=== PATIENT | male | born 1955 | race Caucasian/White ===

== ENCOUNTER 2023-06-22 07:26 | Outpatient (OUT) | payer MEDICARE, SELFPAY ==
[2023-06-22 07:45] LABS: Basophils Absolute Auto 0.1 10^3/uL (0.0-0.1); Basophils Percent Auto 1.5 % (0.2-2.0); Eosinophils Absolute Auto 0.4 10^3/uL (0.0-0.7); Eosinophils Percent Auto 5.2 % (0.9-7.0); Hematocrit 46.1 % (42.0-54.0); Immature Granulocytes Abs Auto 0.05 10^3/uL (0.00-0.03); Immature Granulocytes Pct Auto 0.6 % (0.0-0.5); Lymphocytes Percent Auto 25.5 % (20.5-60.0); Mean Corpuscular HGB Conc 34.7 g/dL (29.9-35.2); Mean Corpuscular Hemoglobin 30.5 pg (25.9-34.0); Mean Platelet Volume 9.6 fL (9.5-13.5); Monocytes Absolute Auto 0.7 10^3/uL (0.3-0.8); Monocytes Percent Auto 9.2 % (1.7-12.0); Neutrophils Absolute Auto 4.5 10^3/uL (1.4-6.5); Platelet Count 212 10^3/uL (150-450); Red Blood Count 5.24 10^6/uL (4.70-6.10); Red Cell Distribution Width 13.4 % (11.0-15.0); White Blood Count 7.8 10^3/uL (4.0-11.0)
[2023-06-22 08:14] LABS: Alanine Aminotransferase 30 U/L (16-63); Anion Gap 14.4; BUN Creatinine Ratio 25.3; Calcium 8.8 mg/dL (8.5-10.1); Carbon Dioxide 27.4 mmol/L (21.0-32.0); Chloride 101 mmol/L (98-107); Chol HDL Ratio 4.8; Cholesterol 191 mg/dL (<=200); Estimated GFR (African America >60 (>=60); Estimated GFR (Non-African Ame >60 (>=60); Glucose 203 mg/dL (74-106); HDL Cholesterol 40 mg/dL (40-60); Potassium 3.8 mmol/L (3.5-5.1); Sodium 139 mmol/L (136-145); Triglycerides 192 mg/dL (<=150); VLDL CHOLESTEROL 38.4 mg/dL
[2023-06-22 08:45] LABS: Microalbumin Urine Random 14.4 mg/dL (<=30.0)
[2023-06-22 09:31] LABS: Prostate Specific Antigen Scrn 2.99 ng/mL (<=4.00)
[2023-06-22 09:39] LABS: Estimated Average Glucose 183 mg/dL
== END 2023-06-22 07:27 | disposition home or self-care (01) ==
PROVIDERS: PCP Internal Medicine; Visit Provider Internal Medicine
DX: E11.65 Type 2 diabetes mellitus with hyperglycemia (principal); E78.00 Pure hypercholesterolemia, unspecified; I10 Essential (primary) hypertension; Z12.5 Encounter for screening for malignant neoplasm of prostate; Z79.899 Other long term (current) drug therapy
CPT/HCPCS: 36415; 80048; 80061; 81001; 82043; 83036; 84460; 85025; G0103

== ENCOUNTER 2023-08-21 11:23 | Outpatient (OUT) | payer MEDICARE, SELFPAY ==
--- NOTE | 2023-08-21 11:28 | CT_ITS ---
The [address] [address] Patient Name: CALE KRAUSE MRN: [id number] date: 1955 Sex: M Assigned Patient Location: CT Current Patient Location: CT Accession/Order Number: [id number] Exam Date: 08/21/2023 11:35 Report Date: 08/21/2023 12:14 At the request of: NAKIA HAYNES Procedure: CT head/brain wo con EXAM: CT head/brain wo con HISTORY: Cervicogenic Headache G44.86, Concussion S06.0X0A COMPARISON: CT head 08/03/2022. TECHNIQUE: Axial noncontrast CT imaging of the head was performed with coronal and sagittal reformats. This CT exam was performed using one or more of the following dose reduction techniques: Automated exposure control, adjustment of the MA and/or kV according to patient size, or use of iterative reconstruction technique. FINDINGS: Calvarium/skull base: No evidence of acute fracture or destructive lesion. Mastoids and middle ears demonstrate no substantial mucosal disease. Paranasal sinuses: No air fluid levels. Brain: There is a mildly hyperdense hemorrhage involving the right basal ganglia with mild surrounding edema and local mass effect partially effacing the anterior right lateral ventricle. The area of hyperdense hemorrhage measures approximately 1.6 x 1.2 x 2.8 cm. No mass lesion or mass effect. No hydrocephalus. CT/CT head/brain wo con IMPRESSION: Mildly hyperdense hemorrhage centered within the right basal ganglia with mild surrounding edema and local mass effect with partial effacement of the anterior right lateral ventricle. Given the appearance and attenuation this is favored to relate to a resolving hemorrhage. Notification of Results Provider/Agent notified: Dr. Haynes Time/Date notified: 08/21/2023 10:04 AM MDT Notifying Staff: Dr. Zhong Electronically authenticated by: AHSAN ZHONG Date: 08/21/2023 12:14
[2023-08-21 11:55] LABS: Basophils Absolute Auto 0.1 10^3/uL (0.0-0.1); Eosinophils Absolute Auto 0.2 10^3/uL (0.0-0.7); Eosinophils Percent Auto 2.4 % (0.9-7.0); Hematocrit 44.7 % (42.0-54.0); Hemoglobin 15.5 g/dL (14.0-18.0); Immature Granulocytes Abs Auto 0.05 10^3/uL (0.00-0.03); Immature Granulocytes Pct Auto 0.6 % (0.0-0.5); Lymphocytes Absolute Auto 1.9 10^3/uL (1.2-3.8); Lymphocytes Percent Auto 23.9 % (20.5-60.0); Mean Corpuscular HGB Conc 34.7 g/dL (29.9-35.2); Mean Corpuscular Hemoglobin 30.6 pg (25.9-34.0); Mean Corpuscular Volume 88.2 fL (80.0-94.0); Mean Platelet Volume 9.7 fL (9.5-13.5); Monocytes Absolute Auto 0.7 10^3/uL (0.3-0.8); Monocytes Percent Auto 8.9 % (1.7-12.0); Neutrophils Percent Auto 63.2 % (43.0-75.0); Platelet Count 225 10^3/uL (150-450); Red Blood Count 5.07 10^6/uL (4.70-6.10); Red Cell Distribution Width 13.4 % (11.0-15.0); White Blood Count 7.9 10^3/uL (4.0-11.0)
[2023-08-21 11:56] LABS: Bilirubin Urine NEGATIVE (NEGATIVE); Blood Urine NEGATIVE (NEGATIVE); Clarity Urine CLEAR (CLEAR); Color Urine LT. YELLOW (YELLOW); Glucose Urine UA NEGATIVE (NEGATIVE); Ketones Urine NEGATIVE (NEGATIVE); Leukocyte Esterase Urine NEGATIVE (NEGATIVE); Nitrite Urine NEGATIVE (NEGATIVE); Protein Urine NEGATIVE (NEG/TRACE); Urobilinogen Urine 0.2 EU/dL (0.2-1.0); pH Urine 5.5 (5.0-9.0)
[2023-08-21 12:03] LABS: RBC Urine NONE SEEN #/HPF (0-2); WBC Urine NONE SEEN #/HPF (NONE SEEN)
[2023-08-21 12:04] LABS: Amorphous Sediment Urine RARE; Bacteria Urine NONE SEEN #/HPF (NONE SEEN); Crystals Seen? None Seen #/HPF (None Seen); Mucus Urine NONE SEEN (NONE SEEN); Squamous Epithelial Cell Urine NONE SEEN #/LPF (NONE/RARE)
[2023-08-21 12:05] LABS: Cast Seen? NONE SEEN #/LPF (NONE SEEN)
[2023-08-21 12:22] LABS: Estimated Average Glucose 180 mg/dL; Glycohemoglobin A1C 7.9 % (4.5-6.2)
[2023-08-21 12:39] LABS: Alanine Aminotransferase 21 U/L (16-63); Albumin Globulin Ratio 1.1; Albumin Level 3.8 g/dL (3.4-5.0); Alkaline Phosphatase 50 U/L (46-116); Anion Gap 10.1; Aspartate Amino Transferase 14 U/L (15-37); BUN Creatinine Ratio 19.4; Bilirubin Total 0.6 mg/dL (0.2-1.0); Calcium 9.7 mg/dL (8.5-10.1); Carbon Dioxide 32.4 mmol/L (21.0-32.0); Chloride 96 mmol/L (98-107); Estimated GFR (African America >60 (>=60); Estimated GFR (Non-African Ame >60 (>=60); Globulin 3.6 g/dL; Glucose 187 mg/dL (74-106); Potassium 3.5 mmol/L (3.5-5.1); Sodium 135 mmol/L (136-145); Total Protein 7.4 g/dL (6.4-8.2)
== END 2023-08-21 11:24 | disposition home or self-care (01) ==
LOC: CT 11:23
PROVIDERS: PCP Internal Medicine; Visit Provider Internal Medicine
DX: G44.86 Cervicogenic headache (principal); G47.10 Hypersomnia, unspecified; S06.0X0A Concussion without loss of consciousness, initial encounter; E11.65 Type 2 diabetes mellitus with hyperglycemia; I10 Essential (primary) hypertension; R35.89 Other polyuria; I61.8 Other nontraumatic intracerebral hemorrhage
CPT/HCPCS: 36415; 70450; 80053; 81001; 83036; 85025; 87086

== ENCOUNTER 2023-08-21 12:17 | Emergency (ER) | payer MEDICARE, OTHER, SELFPAY ==
[2023-08-21] VITALS (96 sets, daily range): BP systolic 97–178; BP diastolic 46–107; PULSE 48–79; RESP 12–24; TEMP 36.8; O2SAT 90–98
--- NOTE | 2023-08-21 12:24 | ECG_ITS ---
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
--- NOTE | 2023-08-21 12:33 | PC.NURSE ---
PT REFEREED TO ER BY PCP FOR ABNORMAL BRAIN CT OUTPATIENT. POSSIBLE BRAIN BLEED
--- NOTE | 2023-08-21 12:51 | ED_ITS ---
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 He denied straining intensely while doing that. He has chronic neck pain but denies that it got any worse when the headache developed. No associated/prior head injury. No prior history of headache like this. He had no neurological deficit - no weakness, sensory changes, numbness or tingling. This occurred about 5 days ago. He saw his PCP, Dr Haynes, and was sent to [facility] for out-patient non contrast head CT. It was obtained around 1135am and report generated around 1214pm. Dr Haynes was notified and the patient was sent to the ED. On arrival he complains only of the headache which is in the center of my head . No nausea, vomiting, photophobia, phonophobia, tinnitus or visual changes. He takes aspirin daily - he said he had abnormal speech, had a negative head CT and saw Neurology for follow up - they put him on aspirin. No Plavix PMHx also includes NIDDM, HTN, chronic neck pain due to DDD/OA and GERD Related Data Home Medications Medication Instructions Recorded Confirmed amlodipine 5 mg tablet 5 mg PO DAILY 08/21/23 08/21/23 aspirin 81 mg capsule 81 mg PO DAILY 08/21/23 08/21/23 carvedilol 12.5 mg tablet 12.5 mg PO Q12H 08/21/23 08/21/23 cetirizine 10 mg capsule (All Day 10 mg PO DAILY 08/21/23 08/21/23 Allergy (cetirizine)) famotidine 20 mg tablet 20 mg PO Q12H 08/21/23 08/21/23 glimepiride 2 mg tablet 4 mg PO DAILY 08/21/23 08/21/23 glucosamine-chondroitin 250 mg-200 1 tab PO DAILY 08/21/23 08/21/23 mg tablet (Osteo Bi-Flex) lisinopril 20 2 tab PO DAILY 08/21/23 08/21/23 mg-hydrochlorothiazide 12.5 mg tablet Allergies Allergy/AdvReac Type Severity Reaction Status Date / Time Penicillins Allergy Unknown Verified 08/21/23 12:22 [facility] Social History Smoking status: Never smoker Exam Narrative Exam Narrative: Nurses notes and vital signs reviewed and patient is not hypoxic. afebrile General: Well-appearing and in no apparent distress. Skin: Warm, dry, no pallor noted. Head: Normocephalic, atraumatic. Neck: Supple, diffusely tender posteriorly. Eye: Pupils are equal, round and EOMI. No scleral scleral icterus or nystagmus Cardiovascular: Regular Rate and Rhythm without murmur, gallop or rub. Respiratory: No accessory muscle use or respiratory distress. Lungs are clear to auscultation, no wheezing, rales or rhonchi Back: No midline thoracic or lumbar vertebral tenderness. No CVA tenderness Musculoskeletal: normal ROM Neurological: A&O x4. No cranial nerve dysfunction observed. No truncal ataxia. Moves all extremities with expected strength and coordination. Sensation intact. NIH=0 Psychiatric: Cooperative and interactive. Normal mood and affect. Constitutional Vital Signs, click to edit/add: Last Vital Signs Temp 98.3 F 08/21/23 12:22 Pulse 66 08/21/23 18:35 Resp 16 08/21/23 18:35 BP 109/73 08/21/23 18:35 Pulse Ox 94 L 08/21/23 17:50 O2 Del Method Room Air 08/21/23 12:22 Course Vital Signs Vital signs: Vital Signs Temperature 98.3 F 08/21/23 12:22 Pulse Rate 51 L 08/21/23 12:22 Respiratory Rate 17 08/21/23 12:22 Blood Pressure 168/107 H 08/21/23 12:22 Pulse Oximetry 97 08/21/23 12:22 Oxygen Delivery Method Room Air 08/21/23 12:22 Temperature 98.3 F 08/21/23 12:22 Pulse Rate 66 08/21/23 18:35 Respiratory Rate 16 08/21/23 18:35 Blood Pressure 109/73 08/21/23 18:35 Pulse Oximetry 94 L 08/21/23 17:50 Oxygen Delivery Method Room Air 08/21/23 12:22 Medical Decision Making MDM Narrative Medical decision making narrative: Patient was placed on vocational nurse and EKG obtained. Blood drawn and sent for evaluation. I met with the patient and and after examining him and discussing potential locations for further evaluation and decided to have me call [facility]. I spoke with the on-call physician for the stroke team, Dr Camacho, per their non-trauma protocol for ICH. He asked that I lower the patient's BP and ensure that the images were transmitted so he could review them. The patient was given Vasotec for HTN - he was then started on Nicardipine drip for better BP control and to keep his systolic less than 140. I spoke with Dr Camacho again after the images were reviewed and he accepted the patient for transfer to [facility] under the care of Dr Huang. He asked me to get CTA head and neck on the patient. [facility] let us know what they were discharge-dependent on beds and it would be a few hours until they could get him transferred to their facility. The patient and spouse were informed of the plan. Patient's blood pressure remained controlled during his ED stay and there were no other issues for the remainder of my shift. Patient will be signed out to the external relations director physician at 7pm with the understanding that if there are no beds available by 10pm at [facility], the patient will be placed upstairs in the ICU and remain on the nicardipine drip to keep his BP controlled until [facility] provides a bed and he can be transferred. Lab Data Lab results reviewed: Yes I reviewed the patient's lab results Labs: Lab Results 08/21/23 08/21/23 Range/Units 12:45 13:34 WBC 7.7 (4.0-11.0) 10^3/uL RBC 5.00 (4.70-6.10) 10^6/uL Hgb 15.5 (14.0-18.0) g/dL Hct 44.3 (42.0-54.0) % MCV 88.6 (80.0-94.0) fL MCH 31.0 (25.9-34.0) pg MCHC 35.0 (29.9-35.2) g/dL RDW 13.6 (11.0-15.0) % Plt Count 230 (150-450) 10^3/uL MPV 10.7 (9.5-13.5) fL Neut % (Auto) 61.0 (43.0-75.0) % Lymph % (Auto) 25.1 (20.5-60.0) % Lucas % (Auto) 10.2 (1.7-12.0) % Eos % (Auto) 2.2 (0.9-7.0) % Baso % (Auto) 1.0 (0.2-2.0) % Neut # (Auto) 4.7 (1.4-6.5) 10^3/uL Lymph # (Auto) 1.9 (1.2-3.8) 10^3/uL Lucas # (Auto) 0.8 (0.3-0.8) 10^3/uL Eos # (Auto) 0.2 (0.0-0.7) 10^3/uL Baso # (Auto) 0.1 (0.0-0.1) 10^3/uL Abs Immat Gran (auto) 0.04 H (0.00-0.03) 10^3/uL Imm/Tot Granulo (auto) 0.5 (0.0-0.5) % PT 10.3 (9.0-11.6) sec INR 0.97 APTT 25.9 (22.3-36.2) sec Sodium 135 L (136-145) mmol/L Potassium 3.2 L (3.5-5.1) mmol/L Chloride 97 L (98-107) mmol/L Carbon Dioxide 28.1 (21.0-32.0) mmol/L Anion Gap 13.1 BUN 21.0 H (7.0-18.0) mg/dL Creatinine 0.80 (0.70-1.30) mg/dL Est GFR ( Amer) >60 (>=60) Est GFR (Non-Af Amer) >60 (>=60) BUN/Creatinine Ratio 26.3 Glucose 172 H (74-106) mg/dL Calcium 9.5 (8.5-10.1) mg/dL Total Bilirubin 0.8 (0.2-1.0) mg/dL AST 12 L (15-37) U/L ALT 21 (16-63) U/L Alkaline Phosphatase 47 (46-116) U/L Total Protein 7.7 (6.4-8.2) g/dL Albumin 3.7 (3.4-5.0) g/dL Globulin 4.0 g/dL Albumin/Globulin Ratio 0.[address] scan - head: Radiologist's impression: Patient Name: CALE KRAUSE MRN: [id number] date: 1955 Sex: M Assigned Patient Location: CT Current Patient Location: CT Accession/Order Number: [id number] Exam Date: 08/21/2023 11:35 Report Date: 08/21/2023 12:14 At the request of: NAKIA HAYNES Procedure: CT head/brain wo con EXAM: CT head/brain wo con HISTORY: Cervicogenic Headache G44.86, Concussion S06.0X0A COMPARISON: CT head 08/03/2022. TECHNIQUE: Axial noncontrast CT imaging of the head was performed with coronal and sagittal reformats. This CT exam was performed using one or more of the following dose reduction techniques: Automated exposure control, adjustment of the MA and/or kV according to patient size, or use of iterative reconstruction technique. FINDINGS: Calvarium/skull base: No evidence of acute fracture or destructive lesion. Mastoids and middle ears demonstrate no substantial mucosal disease. Paranasal sinuses: No air fluid levels. Brain: There is a mildly hyperdense hemorrhage involving the right basal ganglia with mild surrounding edema and local mass effect partially effacing the anterior right lateral ventricle. The area of hyperdense hemorrhage measures approximately 1.6 x 1.2 x 2.8 cm. No mass lesion or mass effect. No hydrocephalus. IMPRESSION: Mildly hyperdense hemorrhage centered within the right basal ganglia with mild surrounding edema and local mass effect with partial effacement of the anterior right lateral ventricle. Given the appearance and attenuation this is favored to relate to a resolving hemorrhage. Notification of Results Provider/Agent notified: Dr. Haynes Time/Date notified: 08/21/2023 10:04 AM MDT Notifying Staff: Dr. Zhong Electronically authenticated by: AHSAN ZHONG Date: 08/21/2023 12:14 ct angio head: Radiologist's impression: Patient Name: CALE KRAUSE MRN: [id number] date: 1955 Sex: M Assigned Patient Location: ER Current Patient Location: ER Accession/Order Number: [id number] Exam Date: 08/21/2023 14:38 Report Date: 08/21/2023 15:25 At the request of: MARY BAE Procedure: CT angio head EXAM: CT angio head, CT angio neck HISTORY: ICH COMPARISON: CT head performed earlier the same day. CTA head and neck 08/03/2022 TECHNIQUE: Axial postcontrast CTA imaging of the head and neck was performed with coronal and sagittal reformats. Maximum intensity projection reformats were performed. NASCET criteria was utilized. This CT exam was performed using one or more of the following dose reduction techniques: Automated exposure control, adjustment of the MA and/or kV according to patient size, or use of iterative reconstruction technique. FINDINGS: Aortic arch: Imaged portion shows no evidence of aneurysm. No significant stenosis of the major origins of the major arch vessels. Right carotid system: No evidence of significant (50% or greater) stenosis or occlusion. Left carotid system: No evidence of significant (50% or greater) stenosis or occlusion. Vertebral arteries: Extremely hypoplastic left vertebral artery. No evidence of significant (50% or greater) stenosis or occlusion. Anterior circulation: No evidence of aneurysm, significant stenosis, or occlusion. Vertebrobasilar system: No evidence of aneurysm, significant stenosis, or occlusion. Venous sinuses: Grossly patent. Additional findings: No evidence for active intracranial hemorrhage//involving the previously described right basal ganglia hemorrhage. Stable paranasal sinus disease. IMPRESSION: 1. No significant stenosis, large vessel occlusion or aneurysm involving the neck or intracranial arterial vasculature. 2. No evidence for active extravasation/contrast blush within the previously described right basal ganglia evolving hemorrhage. No new areas of hemorrhage are seen given postcontrast imaging. 3. Extremely hypoplastic left vertebral artery. Electronically authenticated by: AHSAN ZHONG Date: 08/21/2023 15:25 ct angio neck: Radiologist's impression: Patient Name: CALE KRAUSE MRN: [id number] date: 1955 Sex: M Assigned Patient Location: ER Current Patient Location: ER Accession/Order Number: [id number] Exam Date: 08/21/2023 14:38 Report Date: 08/21/2023 15:25 At the request of: MARY BAE Procedure: CT angio neck EXAM: CT angio head, CT angio neck HISTORY: ICH COMPARISON: CT head performed earlier the same day. CTA head and neck 08/03/2022 TECHNIQUE: Axial postcontrast CTA imaging of the head and neck was performed with coronal and sagittal reformats. Maximum intensity projection reformats were performed. NASCET criteria was utilized. This CT exam was performed using one or more of the following dose reduction techniques: Automated exposure control, adjustment of the MA and/or kV according to patient size, or use of iterative reconstruction technique. FINDINGS: Aortic arch: Imaged portion shows no evidence of aneurysm. No significant stenosis of the major origins of the major arch vessels. Right carotid system: No evidence of significant (50% or greater) stenosis or occlusion. Left carotid system: No evidence of significant (50% or greater) stenosis or occlusion. Vertebral arteries: Extremely hypoplastic left vertebral artery. No evidence of significant (50% or greater) stenosis or occlusion. Anterior circulation: No evidence of aneurysm, significant stenosis, or occlusion. Vertebrobasilar system: No evidence of aneurysm, significant stenosis, or occlusion. Venous sinuses: Grossly patent. Additional findings: No evidence for active intracranial hemorrhage//involving the previously described right basal ganglia hemorrhage. Stable paranasal sinus disease. IMPRESSION: 1. No significant stenosis, large vessel occlusion or aneurysm involving the neck or intracranial arterial vasculature. 2. No evidence for active extravasation/contrast blush within the previously described right basal ganglia evolving hemorrhage. No new areas of hemorrhage are seen given postcontrast imaging. 3. Extremely hypoplastic left vertebral artery. Electronically authenticated by: AHSAN ZHONG Date: 08/21/2023 15:25 ECG Data Interpretation: EKG interpretation: Emergency Department physician interpretation. sinus bradycardia rhythm at 50bpm. nonspecific T-wave changes. Normal axis, normal intervals and no ST segment elevation or depression. Discharge Plan Discharge Chief Complaint: Headache Clinical Impression: ICH (intracerebral hemorrhage) Patient Disposition: [facility] Time of Disposition Decision: 13:20
[2023-08-21] MEDS: ENALAPRILAT DIHYDRATE 1.25 MG/ML VIAL IV (13:18)
[2023-08-21 13:26] LABS: Basophils Absolute Auto 0.1 10^3/uL (0.0-0.1); Eosinophils Absolute Auto 0.2 10^3/uL (0.0-0.7); Eosinophils Percent Auto 2.2 % (0.9-7.0); Hematocrit 44.3 % (42.0-54.0); Hemoglobin 15.5 g/dL (14.0-18.0); Immature Granulocytes Abs Auto 0.04 10^3/uL (0.00-0.03); Immature Granulocytes Pct Auto 0.5 % (0.0-0.5); Lymphocytes Absolute Auto 1.9 10^3/uL (1.2-3.8); Lymphocytes Percent Auto 25.1 % (20.5-60.0); Mean Corpuscular Volume 88.6 fL (80.0-94.0); Mean Platelet Volume 10.7 fL (9.5-13.5); Monocytes Absolute Auto 0.8 10^3/uL (0.3-0.8); Monocytes Percent Auto 10.2 % (1.7-12.0); Neutrophils Absolute Auto 4.7 10^3/uL (1.4-6.5); Platelet Count 230 10^3/uL (150-450); Red Cell Distribution Width 13.6 % (11.0-15.0); White Blood Count 7.7 10^3/uL (4.0-11.0)
[2023-08-21 13:38] LABS: Albumin Globulin Ratio 0.9; Albumin Level 3.7 g/dL (3.4-5.0); Alkaline Phosphatase 47 U/L (46-116); Anion Gap 13.1; Bilirubin Total 0.8 mg/dL (0.2-1.0); Calcium 9.5 mg/dL (8.5-10.1); Carbon Dioxide 28.1 mmol/L (21.0-32.0); Chloride 97 mmol/L (98-107); Estimated GFR (African America >60 (>=60); Estimated GFR (Non-African Ame >60 (>=60); Glucose 172 mg/dL (74-106); Total Protein 7.7 g/dL (6.4-8.2)
[2023-08-21 13:55] LABS: Alanine Aminotransferase 21 U/L (16-63); Aspartate Amino Transferase 12 U/L (15-37); Potassium 3.2 mmol/L (3.5-5.1); Sodium 135 mmol/L (136-145)
[2023-08-21 13:57] LABS: BUN Creatinine Ratio 26.3
--- NOTE | 2023-08-21 14:15 | CT_ITS ---
The [address] [address] Patient Name: CALE KRAUSE MRN: [id number] date: 1955 Sex: M Assigned Patient Location: ER Current Patient Location: ER Accession/Order Number: [id number] Exam Date: 08/21/2023 14:38 Report Date: 08/21/2023 15:25 At the request of: MARY BAE Procedure: CT angio neck EXAM: CT angio head, CT angio neck HISTORY: ICH COMPARISON: CT head performed earlier the same day. CTA head and neck 08/03/2022 TECHNIQUE: Axial postcontrast CTA imaging of the head and neck was performed with coronal and sagittal reformats. Maximum intensity projection reformats were performed. NASCET criteria was utilized. This CT exam was performed using one or more of the following dose reduction techniques: Automated exposure control, adjustment of the MA and/or kV according to patient size, or use of iterative reconstruction technique. FINDINGS: Aortic arch: Imaged portion shows no evidence of aneurysm. No significant stenosis of the major origins of the major arch vessels. Right carotid system: No evidence of significant (50% or greater) stenosis or occlusion. Left carotid system: No evidence of significant (50% or greater) stenosis or occlusion. Vertebral arteries: Extremely hypoplastic left vertebral artery. No evidence of significant (50% or greater) stenosis or occlusion. Anterior circulation: No evidence of aneurysm, significant stenosis, or occlusion. Vertebrobasilar system: No evidence of aneurysm, significant stenosis, or occlusion. Venous sinuses: Grossly patent. Additional findings: No evidence for active intracranial hemorrhage//involving the previously described right basal ganglia hemorrhage. Stable paranasal sinus disease. CT/CT angio neck IMPRESSION: 1. No significant stenosis, large vessel occlusion or aneurysm involving the neck or intracranial arterial vasculature. 2. No evidence for active extravasation/contrast blush within the previously described right basal ganglia evolving hemorrhage. No new areas of hemorrhage are seen given postcontrast imaging. 3. Extremely hypoplastic left vertebral artery. Electronically authenticated by: AHSAN ZHONG Date: 08/21/2023 15:25
--- NOTE | 2023-08-21 14:15 | CT_ITS ---
The [address] [address] Patient Name: CALE KRAUSE MRN: [id number] date: 1955 Sex: M Assigned Patient Location: ER Current Patient Location: ER Accession/Order Number: [id number] Exam Date: 08/21/2023 14:38 Report Date: 08/21/2023 15:25 At the request of: MARY BAE Procedure: CT angio head EXAM: CT angio head, CT angio neck HISTORY: ICH COMPARISON: CT head performed earlier the same day. CTA head and neck 08/03/2022 TECHNIQUE: Axial postcontrast CTA imaging of the head and neck was performed with coronal and sagittal reformats. Maximum intensity projection reformats were performed. NASCET criteria was utilized. This CT exam was performed using one or more of the following dose reduction techniques: Automated exposure control, adjustment of the MA and/or kV according to patient size, or use of iterative reconstruction technique. FINDINGS: Aortic arch: Imaged portion shows no evidence of aneurysm. No significant stenosis of the major origins of the major arch vessels. Right carotid system: No evidence of significant (50% or greater) stenosis or occlusion. Left carotid system: No evidence of significant (50% or greater) stenosis or occlusion. Vertebral arteries: Extremely hypoplastic left vertebral artery. No evidence of significant (50% or greater) stenosis or occlusion. Anterior circulation: No evidence of aneurysm, significant stenosis, or occlusion. Vertebrobasilar system: No evidence of aneurysm, significant stenosis, or occlusion. Venous sinuses: Grossly patent. Additional findings: No evidence for active intracranial hemorrhage//involving the previously described right basal ganglia hemorrhage. Stable paranasal sinus disease. CT/CT angio head IMPRESSION: 1. No significant stenosis, large vessel occlusion or aneurysm involving the neck or intracranial arterial vasculature. 2. No evidence for active extravasation/contrast blush within the previously described right basal ganglia evolving hemorrhage. No new areas of hemorrhage are seen given postcontrast imaging. 3. Extremely hypoplastic left vertebral artery. Electronically authenticated by: AHSAN ZHONG Date: 08/21/2023 15:25
[2023-08-21] MEDS: NICARDIPINE IN NACL, ISO-OSM 40 MG/200 ML PIGGYBACK 25 MG IV (14:19)
[2023-08-21 14:52] LABS: INR 0.97; Partial Thromboplastin Time 25.9 sec (22.3-36.2); Prothrombin Time 10.3 sec (9.0-11.6)
[2023-08-21] MEDS: ONDANSETRON PF 4 MG/2 ML VIAL IV (14:59)
[2023-08-21] MEDS: HYDROMORPHONE HCL 0.5 MG/0.5 ML SYRINGE IV (14:59)
--- NOTE | 2023-08-21 15:47 | PC.NURSE ---
PT RESTING IN BED COMFORTABLY, STATES HEADACHE IS A 2/10 ON PAIN SCALE. DENIES ANY NEEDS CURRENTLY. STILL AWAITING CALL BACK FROM [facility]
--- NOTE | 2023-08-21 16:48 | PC.NURSE ---
DR BAE IN ROOM EXPLAINING PLAN TO PATIENT, AGAIN. STILL AWAITING ON BED FROM [facility].
--- NOTE | 2023-08-21 18:00 | PC.NURSE ---
PT EATING MEAL TRAY AT THIS TIME
== END 2023-08-21 21:51 | disposition short-term general hospital (02) ==
PROVIDERS: Emergency Medicine; Emergency Provider Internal Medicine; PCP Internal Medicine
DX: I61.9 Nontraumatic intracerebral hemorrhage, unspecified (principal); E11.9 Type 2 diabetes mellitus without complications; K21.9 Gastro-esophageal reflux disease without esophagitis; M47.812 Spondylosis without myelopathy or radiculopathy, cervical region; M50.30 Other cervical disc degeneration, unspecified cervical region; Z79.82 Long term (current) use of aspirin; Z79.899 Other long term (current) drug therapy; G44.86 Cervicogenic headache; G47.10 Hypersomnia, unspecified; S06.0X0A Concussion without loss of consciousness, initial encounter; E11.65 Type 2 diabetes mellitus with hyperglycemia; I10 Essential (primary) hypertension; R35.89 Other polyuria
CPT/HCPCS: 36415; 70450; 70496; 70498; 80053; 81001; 83036; 85025; 85610; 85730; 87086; 93005; 96374; 96375; 99285; J1170; Q9967

== ENCOUNTER 2023-10-05 07:28 | Outpatient (OUT) | payer MEDICARE, SELFPAY ==
--- NOTE | 2023-10-05 12:45 | MR_ITS ---
The [address] [address] Patient Name: CALE KRAUSE MRN: [id number] date: 1955 Sex: M Assigned Patient Location: MRI Current Patient Location: MRI Accession/Order Number: [id number] Exam Date: 10/05/2023 13:25 Report Date: 10/05/2023 17:31 At the request of: RENO COYNE Procedure: MR head/brain wo con MRI BRAIN WITHOUT CONTRAST, 10/05/2023. HISTORY: Intracranial hemorrhage. Follow-up. COMPARISON: MRI brain, 08/03/2022. CT head and CTA brain, 08/21/2023. TECHNIQUE: Multiplanar, multisequence MRI imaging of the brain without contrast. FINDINGS: Large amount of mucosal thickening throughout the paranasal sinuses. Mastoid air cells are clear. Middle ear cavities clear. Nasopharynx normal. 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 Orbital contents unremarkable. There is hemosiderin staining along the head of the caudate nucleus on the right from prior hemorrhage. No underlying mass. Brain atrophy. No hydrocephalus. Mild chronic microvascular ischemic changes in the cerebral white matter. No diffusion restriction. No evidence of acute ischemic infarction. There are no masses. MR/MR head/brain wo con IMPRESSION: 1. There is some hemosiderin staining and volume loss in the area of prior hemorrhage along the head of the caudate nucleus on the right. The previously seen hematoma has resolved. No underlying mass. 2. Brain atrophy and chronic microvascular ischemic changes stable. No new acute infarction. No new hemorrhage. No mass identified. Electronically authenticated by: LIVE NOLASCO Date: 10/05/2023 17:31
[2023-10-05 13:19] LABS: Estimated GFR (African America >60 (>=60); Estimated GFR (Non-African Ame >60 (>=60)
== END 2023-10-05 07:29 | disposition home or self-care (01) ==
LOC: MRI 07:28
PROVIDERS: PCP Internal Medicine; Visit Provider Nurse Practitioner Family
DX: I61.0 Nontraumatic intracerebral hemorrhage in hemisphere, subcortical (principal)
CPT/HCPCS: 36415; 70551; 82565

== ENCOUNTER 2024-04-04 08:19 | Outpatient (OUT) | payer MEDICARE, SELFPAY ==
--- OUTSIDE RECORDS SUMMARY | 2024-04-04 08:29 | XMS_ITS | CCD ---
Author Organization [facility] Inform ion [facility] Care Team Providers Care Cook Helper Fruit Name Role Phone Robert Culver DO Unavailable [phone] Robert Culver DO Primary Care Provider DO Robert Culvre Primary Care Provider MD Sonido Calvert Attending Provider [phone] Sonido Calvert Unavailable Robert Culver Unavailable Unavailable Unavailable Reynaldo, Dr. Kiko Ho Referring Unava ilable Reynaldo, Dr. Kiko Ho Attending Unava ilable Robert Culver [place] [facility] UnavailRobert Gerardo Unavailable PALOMO, DR YEE Admitting Unavailable BALL, DR YEE Primary Care Unavailable BALL, DR YEE Attending Unavailable BALL, DR YEE Consulting Unavailable YEH, ROSALIE Consulting Unavailable BALL, DR YEE Admitting Unavailable BALL, DR YEE Attending Unavailable BALL, DR YEE Consulting Unavailable BALL, DR YEE Primary Care Unavailable BALL, DR YEE Admitting Unavailable BALL, DR YEE Attending Unavailable BALL, DR YEE Consulting Unavailable BALL, DR YEE Primary Care Unavailable NADERER, DR RICARDO Perez Admitting Unavailable BALL, DR YEE Primary Care Unavailable RENE, DR JOSE LUIS Pino Consulting Unavailable NADERESissy, DR RICARDO Perez Attending Unavailable NADERER, DR RICARDO Perez Consulting Unavailable GLATZ, LIVE [place] Consulting Unavailable DION ., KRYSTYNA Consulting Unavailable GILMORE, LESLIE Consulting Unavailable BALL, DR YEE Primary Care Unavailable REQUEST, DR RAHMAN LISTED Admitting Unavaila ble BALL, DR YEE Consulting Unavailable REQUEST, DR RAHMAN LISTED Attending Unavaila ble BALL, DR YEE Admitting Unavailable BALL, DR YEE Attending Unavailable BALL, DR YEE Consulting Unavailable BALL, DR YEE Primary Care Unavailable RENE, DR JOSE LUIS Pino Consulting Unavailable Ben Murillo II Unavailable DO Robert Culver Primary Care Provider MD Ben Murillo II Attending Provider DO Robert Culver Primary Care Provider MD Ben Murillo II Attending Provider Ben Murillo II Attending Robert Lara Primary Care Unavailable Ben Murillo II Admitting UnavailBen Perez II Attending Robert Lara Primary Care Unavailable Ben Murillo II Admitting Unavailabl e Allergies Allergy Classification Reported Allergen(s) Allergy Type Date of Onset Reaction(s) Facility (1 source) Penicillin V Drug Allergy Unknown [facility] Other (1 source) Penicillins; Translations: [Penicillins] Allergy to drug (finding) [facility] DO Work Phone: (17 sources) Penicillin; Translations: [penicillin] Drug Allergy Unknown [facility] Repository (1 source) Penicillins Drug allergy (disorder) 03-03-2024 [facility] Repository Medications Current Medications Medication Drug Class(es) Dates Sig (Normalized) Sig (Original) amLODIPine 5 mg oral tablet (20 sources) Dihydropyridine Calcium Channel Sarah Start: 09-20-2022 take 5 mg by mouth once daily in the morning Amlodipine Active 5 MG PO Every morning September 20, 2022 1:00am aspirin 81 mg delayed release oral tablet (20 sources) Platelet Aggregation Inhibitor, Nonsteroidal Anti-inflammatory Drug Start: 09-20-2022 take 81 mg by mouth once daily in the morning Aspirin Active 81 MG PO Every morning September 20, 2022 1:00am Start: 09-20-2022 End: 10-02-2022 take 325 mg by mouth once daily in the morning Aspirin Discontinued 325 MG PO Every morning September 20, 2022 1:00am October 02, 2022 10:25am Aspirin 81 Activ e Blood-Glucose Meter,Continuous (Freestyle Jessica 3 [place]anda) misc (1 source) Start: 02-20-2024 Blood-Glucose Meter,Continuous (Freestyle Jessica 3 [place]) misc Active 0 .Route February 20, 2024 12:00am Use to test home BS qid Blood-Glucose Sensor (Freestyle Jessica 3 Sensor) device (1 source) Start: 02-20-2024 Blood-Glucose Sensor (Freestyle Jessica 3 Sensor) device Active 0 .Route February 20, 2024 12:00am Use to test home BS qid carvedilol 25 mg oral tablet (20 sources) alpha-Adrener gic Sarah, beta-Adrenerg ic Sarah Start: 12-19-2023 End: 02-13-2024 take 25 mg by mouth twice daily Carvedilol Active 25 MG PO Twice daily 180 90 February 13, 2024 5:08pm Start: 09-20-2022 End: 12-19-2023 take 12.5 mg by mouth twice daily Carvedilol Discontinued 12.5 MG PO Twice daily September 20, 2022 1:00am December 19, 2023 2:39pm take 1 tablet by shanon th every twelve hours Carvedilol 25 MG 1 tablet with food Orally Twice a day for 90 days Active cinnamon bark 500 mg oral capsule (7 sources) Start: 12-19-2023 take 500 mg by mouth once daily Cinnamon Bark Active 500 MG PO Daily December 19, 2023 1:00am cinnamon preparation 500 mg oral tablet (10 sources) Non-Standardized Food Allergenic Extract diclofenac sodium 0.01 mg/mg topical gel (11 sources) Nonsteroidal Anti-inflammatory Drug Start: 12-19-2023 Diclofenac Sodium (Voltaren Arthritis Pain) 1 % gel Active 2 GM TOPICAL Four times daily December 19, 2023 1:00am Start: 07-11-2023 Voltaren 1 % A pply 1-2 grams to the affected area Externally 4-5 times a day for 30 days Jun, Active Famotidine (20 sources) Histamine-2 Receptor Antagonist Start: 02-13-2024 take 1 tablet by mouth twice daily Famotidine Active 0 .ROUTE .COMPLEX 180 February 13, 2024 5:09pm TAKE 1 TABLET BY MOUTH TWICE DAILY Start: 09-20-2022 End: 02-13-2024 take 20 mg by mouth twice daily Famotidine Discontinued 20 MG PO Twice daily September 20, 2022 1:00am February 13, 2024 5:09pm glimepiride (20 sources) Sulfonylurea Start: 02-13-2024 take 1 tablet by mouth twice daily at breakfast Glimepiride Active 0 .ROUTE .COMPLEX 180 February 13, 2024 7:37am TAKE 1 TABLET BY MOUTH TWICE DAILY (TAKE first dose WITH BREAKFAST or first main meal OF the day) Start: 01-24-2024 End: 02-13-2024 take 4 mg by mouth once daily in the morning Glimepiride Discontinued 4 MG PO Every morning January 24, 2024 8:44am February 13, 2024 7:37am Start: 12-21-2023 End: 01-24-2024 take 8 mg by mouth once daily in the morning Glimepiride Discontinued 8 MG PO Every morning December 21, 2023 3:21pm January 24, 2024 8:45am Start: 12-19-2023 End: 12-21-2023 take 4 mg by mouth twice daily Glimepiride Discontinue d 4 MG PO Twice daily December 19, 2023 1:00am December 21, 2023 3:23pm Start: 09-20-2022 End: 12-19-2023 take 2 mg by mouth once daily in the morning Glimepiride Discontinued 2 MG PO Every morning September 20, 2022 1:00am December 19, 2023 2:39pm take 1 tablet by shanon th every twelve hours Glimepiride 4 MG 1 tablet with breakfast or the first main meal of the day Orally Twice a day for 90 days Active take 2 tablets by mo [facility] every twenty-four hours Glimepiride 4 MG 2 tablets Oral Once a day Active take 1 tablet by shanon th once daily Glimepiride 1 MG Oral Tablet Take 1 tablet daily Quantity: 90 Refills: 1 Ordered: 26-Sep-2022 DO Active glucosamine sulfate 500 mg oral tablet (17 sources) Start: 12-19-2023 take 1 tablet by mouth once daily Glucosamine Sulfate (Glucosamine) 500 mg tablet Active 500 MG PO Daily December 19, 2023 1:00am administer with a meal hydroCHLOROthiazide 12.5 mg / lisinopril 20 mg oral tablet (20 sources) Thiazide Diuretic, Angiotensin Converting Enzyme Inhibitor Start: 09-20-2022 End: 12-19-2023 take 2 tablets by mouth once daily Lisinopril-Hydrochlorothiazide Active 2 TAB PO Daily December 19, 2023 2:40pm take 2 tablets by mo uth once daily Lisinopril-hydroCHLOROthiazide 20-12.5 M G Take 2 tablets by mouth daily Active Multivitamin preparation (17 sources) Start: 12-19-2023 take 1 tablet by mouth once daily Multivitamin Active 1 TAB PO Daily December 19, 2023 1:00am pioglitazone 30 mg oral tablet (9 sources) Peroxisome Proliferator Receptor alpha Agonist, Peroxisome Proliferator Receptor gamma Agonist, Thiazolidinedione Start: 02-22-2024 End: 03-03-2024 take 30 mg by mouth once daily Pioglitazone Active 30 MG PO Daily 90 90 March 03, 2024 3:36pm Start: 12-21-2023 End: 01-24-2024 take 30 mg by mouth once daily at bedtime Pioglitazone Discontinued 30 MG PO Daily at bedtime December 21, 2023 3:22pm January 24, 2024 8:42am Start: 12-19-2023 End: 12-21-2023 take 15 mg by mouth once daily Pioglitazone Discontinu ed 15 MG PO Daily December 19, 2023 1:00am December 21, 2023 3:23pm Start: 12-07-2023 take 1 tablet by shanon th every twenty-four hours Pioglitazone HCl 30 MG 1 tablet Orally Once a day for 30 days Nov, Active Start: 10-08-2023 take 1 tablet by shanon th every twenty-four hours Pioglitazone HCl 15 MG 1 tablet Orally Once a day for 30 days Sep, Active Semaglutide (4 sources) Start: 01-24-2024 Semaglutide (O zempic) 0.25 mg or 0.5 mg (2 mg/3 mL) pen injector Active 0.5 MG SUBCUT every week 3.68 January 24, 2024 8:44am for 4 weeks Start: 12-21-2023 End: 01-24-2024 Semaglutide (Ozempic) 0.25 m g or 0.5 mg (2 mg/3 mL) pen injector Discontinued 0.25 MG SUBCUT every week 3 December 21, 2023 3:55pm January 24, 2024 8:45am for 4 weeks Start: 12-21-2023 End: 12-21-2023 Semaglutide (Ozempic) 0.25 m g or 0.5 mg (2 mg/3 mL) pen injector Discontinued 0.25 MG SUBCUT every week 3 December 21, 2023 3:53pm December 21, 2023 3:55pm for 4 weeks Start: 12-21-2023 End: 12-21-2023 Semaglutide (Ozempic) 0.25 m g or 0.5 mg (2 mg/3 mL) pen injector Discontinued 0.25 MG SUBCUT every week 1.84 December 21, 2023 1:00am December 21, 2023 3:54pm for 4 weeks Completed/Discontinued Medications Medication Drug Class(es) Dates Sig (Normalized) Sig (Original) atorvastatin 40 mg oral tablet (13 sources) HMG-CoA Reductase Inhibitor Start: 09-20-2022 End: 09-20-2022 take 20 mg by mouth once daily at bedtime Atorvastatin Discontinued 20 MG PO Daily at bedtime September 20, 2022 1:00am September 20, 2022 3:26pm Atorvastatin Devaughn cium 40 MG 1 Orally daily in the evening for 30 days Not-Taking take 0.5 tablet by m outh once daily in the evening Atorvastatin Calcium 40 MG 1/2 tablet Or ally daily in the evening Active cetirizine hydrochloride 10 mg oral tablet (5 sources) Histamine-1 Receptor Antagonist Start: 09-20-2022 End: 12-19-2023 take 1 tablet by mouth once daily at bedtime Cetirizine (Zyrtec) 10 mg Tablet Discontinued 10 MG PO Daily at bedtime September 20, 2022 1:00am December 19, 2023 2:42pm cholecalciferol 0.125 mg oral tablet (5 sources) Vitamin D Start: 09-20-2022 End: 12-19-2023 take 1 tablet by mouth once daily in the morning Cholecalciferol (Vitamin D3) (Vitamin D3) 125 mcg (5,000 unit) Tablet Discontinued 125 MCG PO Every morning September 20, 2022 1:00am December 19, 2023 2:42pm take 1 capsule by mouth once erik ly Vitamin D3 125 MCG (5000 UT) Oral Capsule TAKE 1 CAPSULE Daily Quantity: 0 Refills: 0 Ordered: 26-Sep-2022 DO Active chondroitin sulfates 200 mg / glucosamine hydrochloride 250 mg oral tablet (5 sources) Start: 09-20-2022 End: 12-19-2023 take 1 tablet by mouth once daily at bedtime Glucosamine-Chondroitin (Osteo Bi-Flex) 250-200 mg Tablet Discontinued 1 TAB PO Daily at bedtime September 20, 2022 1:00am December 19, 2023 2:42pm Ohmpk-At-Tint TA BS Take 1 tablet daily Quantity: 0 Refills: 0 Ordered: 26-Sep-2022 DO Active cyclobenzaprine hydrochloride 10 mg oral tablet (3 sources) Muscle Relaxant Start: 10-03-2022 End: 12-19-2023 take 10 mg by mouth three times daily Cyclobenzaprine Discontinued 10 MG PO Three times daily October 03, 2022 1:00am December 19, 2023 2:42pm metFORMIN hydrochloride 500 mg oral tablet (4 sources) Biguanide Start: 09-20-2022 End: 09-20-2022 Metformin Discontinued MG TABLET September 20, 2022 1:00am September 20, 2022 3:17pm oxyCODONE hydrochloride 5 mg oral tablet (3 sources) Opioid Agonist Start: 10-03-2022 End: 12-19-2023 take 5-10 mg by mouth every six hours Oxycodone Discontinued 5 - 10 MG PO Q6H 40 8 October 03, 2022 December 19, 2023 2:42pm Prednisone (3 sources) Start: 10-03-2022 End: 12-19-2023 Prednisone Discontinued 1 dose pk PO per package directions October 03, 2022 1:00am December 19, 2023 2:41pm take 4 tabs for 3 days then take 3 tabs for 3 days then take 2 tabs for 3 days then take 1 tab for 3 days Start: 10-03-2022 Prednisone Act craissa 1 dose pk PO per package directions October 03, 2022 1:00am take 4 tabs for 3 days then take 3 tabs for 3 days then take 2 tabs for 3 days then take 1 tab for 3 days Start: 10-03-2022 Prednisone Act carissa 1 dose pk PO per package directions October 03, 2022 12:00am take 4 tabs for 3 days then take 3 tabs for 3 days then take 2 tabs for 3 days then take 1 tab for 3 days sulfamethoxazole 800 mg / trimethoprim 160 mg oral tablet (3 sources) Dihydrofolate Reductase Inhibitor Antibacterial, Sulfonamide Antimicrobial Start: 10-03-2022 End: 12-19-2023 take 1 tablet by mouth every twelve hours Sulfamethoxazole-Trimethoprim (Bactrim Ds) 800-160 mg tablet Discontinued 1 TAB PO Q12H October 03, 2022 1:00am December 19, 2023 2:41pm triamcinolone acetonide 40 mg/ml injectable suspension (20 sources) Corticosteroid Start: 07-11-2023 Kenalog-40 13 Jun, 2023 80 m g zinc acetate 50 mg oral capsule (4 sources) Start: 09-20-2022 End: 12-19-2023 take 50 mg by mouth once daily in the morning Zinc Acetate Discontinued 50 MG PO Every morning September 20, 2022 1:00am December 19, 2023 2:42pm zinc gluconate 50 mg oral tablet (1 source) take 1 tablet by mouth once daily Zinc 50 MG Oral Tablet TAKE 1 TABLET DAILY. 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, unspecified] Chronic Diabetes mellitus with complications (20 sources) Type 2 diabetes mellitus; Translations: [Type 2 diabetes mellitus with hyperglycemia] Onset: 08-09-2022 Chronic Diabetes mellitus without complication (14 sources) Diabetes mellitus; Translations: [Diabetes mellitus without mention of complication, type II or unspecified type, not stated as uncontrolled] Chronic Disorders of lipid metabolism (20 sources) Hypercholesterolemia; Translations: [Pure hypercholesterolemia, unspecified] Onset: 07-18-2022 Chronic Esophageal disorders (10 sources) Gastro-esophageal reflux disease with esophagitis; Translations: [Gastroesophageal reflux disease with esophagitis without hemorrhage] 12-19-2023 Chronic Essential hypertension (20 sources) Hypertensive disorder; Translations: [Unspecified essential hypertension] Onset: 08-09-2022 Chronic Intracranial injury (1 source) Concussion without loss of consciousness, initial encounter Episodic Late effects of cerebrovascular disease (1 source) Dysarthria following cerebral infarction; Translations: [DYSARTHRIA FOLLOW CEREBRAL INFARCT] Onset: 08-09-2022 Chronic Osteoarthritis (20 sources) Primary gonarthrosis, bilateral; Translations: [Bilateral primary osteoarthritis of knee] Onset: 03-27-2024 Chronic Osteoporosis (2 sources) Osteoporosis; Translations: [Age-related osteoporosis without current pathological fracture] Onset: 03-27-2024 03-26-2024 Chronic Other aftercare (4 sources) 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; Translations: [OTH ESL INSTRUCTOR CURRENT DRUG THERAPY] Onset: 08-09-2022 Episodic Other aftercare (1 source) Long-term current use of drug therapy; Translations: [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] 03-26-2024 Episodic Other and ill-defined cerebrovascular disease (17 sources) Cerebral atherosclerosis; Translations: [Cerebral atherosclerosis] 03-01-2024 Chronic Other and ill-defined cerebrovascular disease (4 sources) Cerebral atherosclerosis Chronic Other and ill-defined cerebrovascular disease (1 source) Cerebrovascular disease, unspecified; Translations: [CEREBROVASCULAR DISEASE UNSPECIFIED] Onset: 08-09-2022 Chronic Other circulatory disease (1 source) History of cerebrovascular accident; Translations: [Personal history of transient ischemic attack (TIA), and cerebral infarction without residual deficits] Episodic Other circulatory disease (16 sources) History of cerebrovascular accident without residual deficits; Translations: [Personal history of transient ischemic attack (TIA), and cerebral infarction without residual deficits] Episodic Other circulatory disease (1 source) Personal history of transient ischemic attack (TIA), and cerebral infarction without residual deficits Episodic Other nervous system disorders (17 sources) Bilateral peripheral neuropathy of lower limbs; Translations: [Unspecified mononeuropathy of bilateral lower limbs] Chronic Other nervous system disorders (1 source) Unspecified mononeuropathy of bilateral lower limbs Chronic Other nutritional; endocrine; and metabolic disorders (1 source) Obesity; Translations: [Obesity, unspecified] Chronic Other nutritional; endocrine; and metabolic disorders (20 sources) Body mass index 30+ - obesity; Translations: [Obesity, unspecified] Chronic Other nutritional; endocrine; and metabolic disorders (1 source) Obesity, unspecified Chronic Other nutritional; endocrine; and metabolic disorders (7 sources) Severe obesity; Translations: [Morbid (severe) obesity due to excess calories] Chronic Other nutritional; endocrine; and metabolic disorders (1 source) Morbid (severe) obesity due to excess calories Chronic Other nutritional; endocrine; and metabolic disorders (1 source) Body mass index (BMI) 35.0-35.9, adult Chronic Other screening for suspected conditions (not mental disorders or infectious disease) (5 sources) Encounter for screening for malignant neoplasm of prostate; Translations: [Encounter for screening for malignant neoplasm of colon] Onset: 07-18-2022 Episodic Residual codes; unclassified (9 sources) Hypersomnia; Translations: [Hypersomnia, unspecified] Chronic Residual codes; unclassified (1 source) Hypersomnia, unspecified Chronic Spondylosis; intervertebral disc disorders; other back problems (20 sources) Inflammation of sacroiliac joint; Translations: [Sacroiliitis, not elsewhere classified] Onset: 08-09-2022 Chronic Spondylosis; intervertebral disc disorders; other back problems (8 sources) Spinal stenosis, cervical region; Translations: [Spinal stenosis, lumbar region with neurogenic claudication] Onset: 08-10-2022 Episodic Unclassified (1 source) CONTACT W/AND (SUSP) EXPOS COVID-19; Translations: [CONTACT W/AND (SUSP) EXPOS COVID-19] Onset: 08-09-2022 Unclassified (1 source) Pain in right knee; Translations: [Pain in right knee] Onset: 07-11-2023 Past or Other Problems Problem Classification Problem Date Documented Da te Episodic/Chronic Esophageal disorders (8 sources) Esophageal disorders; Translations: [Gastroesophageal reflux disease with esophagitis without hemorrhage] Fluid and electrolyte disorders (1 source) Hyperkalemia; Translations: [HYPERKALEMIA] Onset: 09-30-2022 Episodic Headache; including migraine (1 source) Headache; including migraine Malaise and fatigue (1 source) Weakness; Translations: [WEAKNESS] Onset: 08-09-2022 Episodic Other aftercare (1 source) retirement (current) use of aspirin; Translations: [CARE HOME CURRENT USE OF ASPIRIN] Onset: 08-09-2022 Episodic Other aftercare (1 source) 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; Translations: [CARE HOME USE ORAL HYPOGLYCEMIC DX] Onset: 08-09-2022 Episodic Other nervous system disorders (4 sources) Paresthesia of skin; Translations: [PARESTHESIA OF SKIN] Onset: 08-08-2022 Episodic Other nervous system disorders (3 sources) Anesthesia of skin; Translations: [ANESTHESIA OF SKIN] Onset: 08-03-2022 Episodic Other non-traumatic joint disorders (1 source) Pain in left knee; Translations: [Pain in left knee] Onset: 07-11-2023 Episodic Unclassified (1 source) Never smoked tobacco; Translations: [Never a smoker] Unclassified (1 source) Polyuria R35.89 Results Test Name Value Interpretation Reference Range Facility A1C with Estimated Average G peymann 03-27-2024 Glucose [Mass/Vol] 146 mg/dL Normal [facility] Comment on above: Result Comment: PERF ORMED BY: [place] [id number] PATHOLOGIST FRAME BANDER ISABEL KRUSE M.D. Performed By: #### V [id number], A1C WTH eA, HGB, CUMRSA, ALB #### [address] #### NICOTINE #### [facility] , Albumin Levelon 03-27-2024 Albumin [Mass/Vol] 4.5 g/dL Normal 3.5-5.7 [facility] Comment on above: Performed By: #### V [id number], A1C WTH eA, HGB, CUMRSA, ALB #### [facility] [address] [place] [address] #### NICOTINE #### [facility] , Albumin [Mass/volume] in Ser um or Plasma by Bromocresol green (BCG) dye binding methoOrdered By: Ben Murillo on 03-27-2024 Albumin BCG dye [Mass/Vol] 4.5 g/dL 3.5-5.7 [facility] Glucose mean value [Mass/vol ume] in Blood Estimated from glycated hemoglobinOrdered By: Ben Murillo on 03-27-2024 Average glucose Estimated from glycated hemoglobin (Bld) [Mass/Vol] 146 mg/dL [facility] Hemoglobin A1c percentageOrd ered By: Ben Murillo on 03-27-2024 HbA1c (Bld) [Mass fraction] 6.7 % High 4.3-5.6 [facility] Comment on above: Increased risk for d iabetes: 5.7 - 6.4diabetes: >6.4glycemic control for adults with diabetes: <7.0 Result Comment: Incr eased risk for diabetes: 5.7 - 6.4 diabetes: >6.4 glycemic control for adults with diabetes: <7.0 Performed By: #### V [id number], A1C WTH eA, HGB, CUMRSA, ALB #### [place] [address] [place] #### NICOTINE #### [facility] , Hemoglobin [Mass/volume] in BloodOrdered By: Ben Murillo on 03-27-2024 Hemoglobin (Bld) [Mass/Vol] 16.0 g/dL Normal 13.0-17.0 [facility] Comment on above: Result Comment: PERF ORMED BY: [place] [id number] PATHOLOGIST FRAME BANDER ISABEL KRUSE M.D. Performed By: #### V [id number], A1C WTH eA, HGB, CUMRSA, ALB #### [address] #### NICOTINE #### [facility] , MRSA Cultureon 03-27-2024 MRSA Culture No MRSA Isolated 2 Days PERFORMED BY: [place] [address] PATHOLOGIST FRAME BANDER ISABEL KRUSE M.D. Normal [facility] Comment on above: Performed By: #### V [id number], A1C WTH eA, HGB, CUMRSA, ALB #### [address] #### NICOTINE #### [facility] , Nicotine/Cotinine Bloodon Cotinine, Blood <1.0 Normal . [facility] Comment on above: Result Comment: This test was developed and its performance characteristics determined by [facility]. It has not been cleared or approved by the Food and Drug Administration. Cotinine levels greater than 20.0 are consistent with the use of tobacco or tobacco cessation products. Performed at: [address] [id number] Transfer Engineer: Mark Zabala MD, Phone: [phone] PERFORMED BY: [place] [id number] PATHOLOGIST FRAME BANDER ISABEL KRUSE M.D. Performed By: #### V [id number], A1C WTH eA, HGB, CUMRSA, ALB #### [place] [address] [place] #### NICOTINE #### [facility] , Nicotine, Blood <1.0 Normal . [facility] Comment on above: Result Comment: This test was developed and its performance characteristics determined by [facility]. It has not been cleared or approved by the Food and Drug Administration. Nicotine levels greater than 2.0 are consistent with the use of tobacco or tobacco cessation products. Performed By: #### V [id number], A1C WTH eA, HGB, CUMRSA, ALB #### [address] #### NICOTINE #### [facility] , Vitamin D 25 Hydroxy Totalon 03-27-2024 Vitamin D 25 Hydroxy Total 30.5 ng/mL Normal 30-100 [facility] Comment on above: Result Comment: JORGITO MIN D STATUS 25(OH)VITAMIN D RANGE (ng/mL) Deficient <20 Insufficient 20 to <30 Sufficient 30 to 100 Reference: Luis F MF,Francia NC, Guy HATCH, et al. Evaluation,treatment, and prevention of vitamin D deficiency; an Endocrine Society clinical practice guideline. JCEM. 2010; 96(7):1911-30. PERFORMED BY: [place] [address] PATHOLOGIST FRAME BANDER ISABEL KRUSE M.D. Performed By: #### V [id number], A1C WTH eA, HGB, CUMRSA, ALB #### [place] [address] [place] #### NICOTINE #### [facility] , Vitamin D+Metabolites [Mass/ volume] in Serum or PlasmaOrdered By: Ben Murillo on 03-27-2024 Vitamin D+Metabolites [Mass/Vol] 30.5 ng/mL 30-100 [facility] Comment on above: VITAMIN D STATUS 25( OH)VITAMIN D RANGE (ng/mL) Deficient <20 Insufficient 20 to <30Sufficient 30 to 100Reference: Luis F GASTON,Francia CONTRERAS, Guy HATCH, et al. Evaluation,treatment, and prevention of vitamin D deficiency; an Endocrine Society clinical practice guideline. JCEM. 2010; 96(7):1911-30. Glucose mean value [Mass/vol ume] in Blood Estimated from glycated hemoglobinon 02-21-2024 Average glucose Estimated from glycated hemoglobin (Bld) [Mass/Vol] 177 mg/dL [facility] - Hematology and Cell countson 02-21-2024 HbA1c (Bld) [Mass fraction] 7.8 % 4.5-6.2 [facility] Comment on above: ADA RECOMMENDED LIMI T 4.0 - 6.0ADA THERAPEUTIC TARGET < 7.0ACTION SUGGESTED> 7.0 Comprehensive Metabolic Pane rafa 08-21-2023 Albumin [Mass/Vol] 3.550261 g/dL Normal 3.4-5.0 g/dL N [facility] [place] [employer] Other ALP [Catalytic activity/Vol] 50 U/L Normal 46-116 U/L [employer] Other ALT [Catalytic activity/Vol] 21 U/L Normal 16-63 U/L [employer] Other Anion gap [Moles/Vol] 10.1 mmol/L No rt [place] [employer] Other AST [Catalytic activity/Vol] 14 U/L Low 15-37 U/L [employer] Other Bilirubin [Mass/Vol] 0.8747022 mg/dL Normal 0.2- 1.0 mg/dL [employer] Other Calcium [Mass/Vol] 9.4537176 mg/dL Normal 8.5-10 .1 mg/dL [employer] Other Chloride [Moles/Vol] 96 mmol/L Low 98-107 mmol/L [employer] Other CO2 [Moles/Vol] 32.32485982 mmol/L High 21.0-3 2.0 mmol/L [place] [employer] Other Creatinine [Mass/Vol] 1.92863026 mg/dL Normal 0. 70-1.30 mg/dL [place] [employer] Other Glucose [Mass/Vol] 187 mg/dL High 74-106 mg/dL Nort [facility] [employer] Other Potassium [Moles/Vol] 3.10996237 mmol/L Normal 3 .5-5.1 mmol/L [place] [employer] Other Protein [Mass/Vol] 7.005630 g/dL Normal 6.4-8.2 g/dL [facility] [place] [employer] Other Sodium [Moles/Vol] 135 mmol/L Low 136-145 mmol/L [place] [employer] Other Urea nitrogen [Mass/Vol] 20.1252983 mg/dL High 7.0-18.0 mg/dL [place] [employer] Other Urea nitrogen/Creatinine [Mass ratio] 19.4 mg/mg [employer] Other Comprehensive Metabolic Panel 3.6 g/dL [employer] Other Comprehensive Metabolic Panel 1.1 [employer] Other Comprehensive Metabolic Panel see note [employer] Other Comprehensive Metabolic Panel >60 >=60 [employer] Other UA RANDOM W/MICROSCOPICon Clarity (U) CLEAR CLEAR [employer] Other Color (U) LT. YELLOW YELLOW [employer] Other Ketones Ql (U) Negative NEGATIVE mg/dL [employer] Other Leukocyte esterase Test strip Ql (U) Negative NEGATIVE [employer] Other pH (U) 5.5 [pH] 5.0-9.0 [employer] Other UA RANDOM W/MICROSCOPIC NONE SEEN #/HPF N one Seen #/HPF [employer] Other UA RANDOM W/MICROSCOPIC 1.020 1.005-1.025 [employer] Other UA RANDOM W/MICROSCOPIC Negative NEGATIVE N [employer] Other UA RANDOM W/MICROSCOPIC 0.2 EU/dL 0.2- 1.0 EU/dL [employer] Other UA RANDOM W/MICROSCOPIC NONE SEEN NONE SEEN N [employer] Other UA RANDOM W/MICROSCOPIC NONE SEEN #/LPF N ONE SEEN #/LPF [employer] Other UA RANDOM W/MICROSCOPIC RARE N [employer] Other XR knee BI 4Von 07-11-2023 XR knee BI 4V [facility] Main [place] [address] [place] [address] XRay Report Signed Patient: Cale Krause MR#: [id number] : 1955 Acct:[id number] Age/Sex: 68 / M ADM Date: 07/11/23 Loc: [facility] Room: Type: [facility] Attending Dr: Ben Murillo II, MD Copies to: Ben Murillo MD Ordering Provider: Ben Murillo MD Date of Service: 07/11/23 XR/XR knee BI 4V: Pain in right knee;Pain in left knee ([id number]) XR/XR pelvis 1-2V: Pain in right knee;Pain in left knee AP PELVIS: Bilateral knee series 4 views each CLINICAL HISTORY: Bilateral knee pain for months. COMPARISON: None Pelvis: There is suspected sclerosis involving the left femoral head without femoral head collapse. Mild degenerative changes of both hips. No acute bony process is seen. Bilateral knee series: Severe degenerative changes of both knees with weightbearing and patellofemoral joint space narrowing. No acute bony process is seen. There are associated joint effusions. XR/XR pelvis 1-2V IMPRESSION: SUSPECTED SCLEROSIS INVOLVING THE LEFT FEMORAL HEAD WITHOUT FEMORAL HEAD COLLAPSE. UNDERLYING AVASCULAR NECROSIS CANNOT BE EXCLUDED. SEVERE DEGENERATIVE CHANGES OF BOTH KNEES WITHOUT ACUTE BONY PROCESS. Impression dictated by: Francisco Pate Jr., D.O.07/11/2023 4:17 PM Dictation Location: [place] [address] Transcribed By: [facility] 07/11/23 1617 Dictated By: Francisco Pate Jr, DO 07/11/23 1616 Signed By: 07/11/23 161 Normal [facility] XR knee BI 4V [facility] [employer] Other XR knee BI 4V [facility] [employer] Other XR knee BI 4V [address] [place] [address] [employer] Other XR knee BI 4V [address] [place] [employer] Other XR knee BI 4V XRay Report [facility] [employer] Other XR knee BI 4V Signed [employer] Other XR knee BI 4V Patient: Cale Krause MR#: [id number] [place] [employer] Other XR knee BI 4V : 1955 Acct:[id number] [employer] Other XR knee BI 4V Age/Sex: 68 / M ADM Date: 07/11/23 [employer] Other XR knee BI 4V Loc: [facility] Room: Type: [facility] [employer] Other XR knee BI 4V Attending Dr: Ben Murillo II, MD [employer] Other XR knee BI 4V Copies to: Ben Murillo MD [employer] Other XR knee BI 4V Ordering Provider: Ben Murillo MD [employer] Other XR knee BI 4V Date of Service: 07/11/23 [employer] Other XR knee BI 4V XR/XR knee BI 4V: Pain in right knee;Pain in left knee [employer] Other XR knee BI 4V ([id number]) XR/XR pelvis 1-2V: Pain in right knee;Pain in left knee [employer] Other XR knee BI 4V AP PELVIS: Bilateral knee series 4 views each [employer] Other XR knee BI 4V CLINICAL HISTORY: Bilateral knee pain for months. [employer] Other XR knee BI 4V COMPARISON: None [employer] Other XR knee BI 4V Pelvis: There is suspected sclerosis involving the left femoral head without femoral head collapse. [employer] Other XR knee BI 4V Mild degenerative changes of both hips. No acute bony process is seen. [employer] Other XR knee BI 4V Bilateral knee series: Severe degenerative changes of both knees with weightbearing and [employer] Other XR knee BI 4V patellofemoral joint space narrowing. No acute bony process is seen. There are associated joint [employer] Other XR knee BI 4V effusions. [employer] Other XR knee BI 4V XR/XR pelvis 1-2V [employer] Other XR knee BI 4V IMPRESSION: [employer] Other XR knee BI 4V SUSPECTED SCLEROSIS INVOLVING THE LEFT FEMORAL HEAD WITHOUT FEMORAL HEAD COLLAPSE. UNDERLYING [employer] Other XR knee BI 4V AVASCULAR NECROSIS CANNOT BE EXCLUDED. [employer] Other XR knee BI 4V SEVERE DEGENERATIVE CHANGES OF BOTH KNEES WITHOUT ACUTE BONY PROCESS. [employer] Other XR knee BI 4V Impression dictated by: Francisco Pate Jr., D.OGurpreet07/11/2023 4:17 PM [employer] Other XR knee BI 4V Dictation Location: [id number]-12 [employer] Other XR knee BI 4V Transcribed By: PWS 07/11/23 [facility] [employer] Other XR knee BI 4V Dictated By: Francisco Pate Jr, DO 07/11/23 [facility] [employer] Other XR knee BI 4V Signed By: [employer] Other XR knee BI 4V 07/11/23 [facility] [employer] Other In office Testingon 01-20-20 In office Testing [id number]:[id number] Normal [facility] CBC AUTO DIFFon 01-17-2023 BASO # 0.1 103/ul Normal 0.0-0.1 [facility] Comment on above: Performed By: #### P SASC #### [facility] [address] [place] [address] Dr. Dileep Figueroa Basophils/100 WBC (Bld) 1.4 % Normal 0.2-2.0 [facility] Comment on above: Performed By: #### P SASC #### [facility] [address] [place] [address] Dr. Dileep Figueroa EO # 0.4 103/ul Normal 0.0-0.7 [facility] Comment on above: Performed By: #### P SASC #### [facility] [address] [place] [address] Dr. Dileep Figueroa Eosinophils/100 WBC (Bld) 5.6 % Normal 0.9-7.0 [facility] Comment on above: Performed By: #### P SASC #### [facility] [address] [place] [address] Dr. Dileep Figueroa Erythrocyte distribution width (RBC) [Ratio] 13.7 % Normal 11.0-15.0 [facility] Comment on above: Performed By: #### P SASC #### [facility] [address] [address] [address] Dileep Figueroa Hematocrit (Bld) [Volume fraction] 45.0 % Normal 42.0-54.0 [facility] Comment on above: Performed By: #### P SASC #### [facility] [address] [place] [address] [address] Dileep Figueroa Hemoglobin (Bld) [Mass/Vol] 15.9 g/dL Normal 14.0-18.0 [facility] Comment on above: Performed By: #### P SASC #### [facility] [address] [place] [address] [address] Dileep Figueroa IG # 0.06 10e3/ul Critically high 0.00-0.03 [facility] Comment on above: Performed By: #### P SASC #### [facility] [address] [place] [address] [address] Dileep Figueroa IG % 0.8 % Critically high 0.0-0.5 [facility] Comment on above: Performed By: #### P SASC #### [facility] [address] [address] [address] Dileep Figueroa LYMPH # 2.3 103/ul Normal 1.2-3.8 [facility] Comment on above: Performed By: #### P SASC #### [facility] [address] [place] [address] [address] Dileep Figueroa Lymphocytes/100 WBC (Bld) 30.0 % Normal 20.5-60.0 [facility] Comment on above: Performed By: #### P SASC #### [facility] [address] [place] [address] [address] Dileep Figueroa MCH (RBC) [Entitic mass] 29.9 pg Normal 25.9-34.0 [facility] Comment on above: Performed By: #### P SASC #### [facility] [address] [place] [address] [address] Dileep Figueroa MCHC (RBC) [Mass/Vol] 35.3 g/dL Critically high 29.9-35.2 [facility] Comment on above: Performed By: #### P SASC #### [facility] [address] [address] [address] Dileep Figueroa MCV (RBC) [Entitic vol] 84.6 fL Normal 80.0-94.0 [facility] Comment on above: Performed By: #### P SASC #### [facility] [address] [address] [address] Dileep Figueroa MONO # 0.8 103/ul Normal 0.3-0.8 [facility] Comment on above: Performed By: #### P SASC #### [facility] [address] [place] [address] Dr. Dileep Figueroa Monocytes/100 WBC (Bld) 10.2 % Normal 1.7-12.0 [facility] Comment on above: Performed By: #### P SASC #### [facility] [address] [place] [address] Dr. Dileep Figueroa NEUT # 4.1 103/ul Normal 1.4-6.5 [facility] Comment on above: Performed By: #### P SASC #### [facility] [address] [place] [address] Dr. Dileep Figueroa Neutrophils/100 WBC (Bld) 52.0 % Normal 43.0-75.0 [facility] Comment on above: Performed By: #### P SASC #### [facility] [address] [place] [address] Dr. Dileep Figueroa Platelet mean volume (Bld) [Entitic vol] 9.7 fL Normal 9.5-13.5 [facility] Comment on above: Performed By: #### P SASC #### [facility] [address] [place] [address] Dr. Dileep Figueroa PLT 203 103/ul Normal 150-450 [facility] Comment on above: Performed By: #### P SASC #### [facility] [address] [place] [address] Dr. Dileep Figueroa RBC 5.32 106/ul Normal 4.70-6.10 [facility] Comment on above: Performed By: #### P SASC #### [facility] [address] [place] [address] [address] Dileep Figueroa WBC 7.8 103/ul Normal 4.0-11.0 [facility] Comment on above: Performed By: #### P SASC #### [facility] [address] [address] [address] Dileep Figueroa MAYO- BMP WITH LIPIDon 2022 Anion gap [Moles/Vol] 11.5 mmol/L Normal [facility] Comment on above: Performed By: #### D ATBMP #### [facility] [address] [address] [address] Dileep Figueroa Calcium [Mass/Vol] 9.1 mg/dL Normal 8.5-10.1 [facility] Comment on above: Performed By: #### D ATBMP #### [facility] [address] [place] [address] [address] Dileep Figueroa Chloride [Moles/Vol] 102 mmol/L Normal 98-107 [facility] Comment on above: Performed By: #### D ATBMP #### [facility] [address] [place] [address] Dr. Dileep Figueroa Cholesterol [Mass/Vol] 209 mg/dL Critically high <=200 [facility] Comment on above: Performed By: #### D ATBMP #### [facility] [address] [address] [address] Dileep Figueroa Cholesterol in HDL [Mass/Vol] 35 mg/dL Critically low 40-60 [facility] Comment on above: Performed By: #### D ATBMP #### [facility] [address] [address] [address] Dileep Figueroa Cholesterol in LDL [Mass/Vol] 108.6 mg/dL Normal [facility] Comment on above: Performed By: #### D ATBMP #### [facility] [address] [place] [address] [address] Dileep Figueroa CO2 [Moles/Vol] 29.1 mmol/L Normal 21.0-32.0 [facility] Comment on above: Performed By: #### D ATBMP #### [facility] [address] [address] [address] Dileep Figueroa Creatinine [Mass/Vol] 0.82 mg/dL Normal 0.70-1.30 [facility] Comment on above: Performed By: #### D ATBMP #### [facility] [address] [address] [address] Dileep Figueroa EGFR-AF GEORGIAN >60 Normal >=60 [facility] Comment on above: Performed By: #### D ATBMP #### [facility] [address] [address] [address] Dileep Figueroa EGFR-NON AF GEORGIAN >60 Normal >=60 [facility] Comment on above: Performed By: #### D ATBMP #### [facility] [address] [address] [address] Dileep Figueroa Glucose [Mass/Vol] 229 mg/dL Critically high 74-106 [facility] Comment on above: Performed By: #### D ATBMP #### [facility] [address] [address] [address] Dileep Figueroa HDL NORMAL > or = 60 mg/dl - LOW CARDIOVASCULAR RISK <40 mg/dl - HIGH CARDIOVASCULAR RISK Normal [facility] Comment on above: Performed By: #### D ATBMP #### [facility] [address] [address] [address] Dileep Figueroa LDL CALC NORMAL SEE BELOW Normal [facility] Comment on above: Result Comment: <100 mg/dl OPTIMAL 100 - 129 mg/dl NEAR OR ABOVE OPTIMAL 130 - 159 mg/dl BORDERLINE HIGH 160 - 189 mg/dl HIGH >190 mg/dl VERY HIGH Performed By: #### D ATBMP #### [facility] [address] [address] [address] Dileep Figueroa Potassium [Moles/Vol] 3.6 mmol/L Normal 3.5-5.1 [facility] Comment on above: Performed By: #### D ATBMP #### [facility] [address] [address] [address] Dileep Figueroa Sodium [Moles/Vol] 139 mmol/L Normal 136-145 [facility] Comment on above: Performed By: #### D ATBMP #### [facility] [address] [address] [address] Dileep Figueroa Triglyceride [Mass/Vol] 327 mg/dL Critically high <=150 [facility] Comment on above: Performed By: #### D ATBMP #### [facility] [address] [address] [address] Dileep Figueroa Urea nitrogen [Mass/Vol] 21.0 mg/dL Critically high 7.0-18.0 [facility] Comment on above: Performed By: #### D ATBMP #### [facility] [address] [address] [address] Dileep Figueroa Urea nitrogen/Creatinine [Mass ratio] 25.6 mg/mg Normal [facility] Comment on above: Performed By: #### D ATBMP #### [facility] [address] [address] [address] Dileep Figueroa VLDL CALC 65.4 mg/dL Normal [facility] Comment on above: Performed By: #### D ATBMP #### [facility] [address] [address] [address] Dileep Figueroa GLYCOHEMOGLOBIN A1Con 2022 ADA RECOMMENDATION SEE BELOW Normal [facility] Comment on above: Result Comment: ADA RECOMMENDED LIMIT 4.0 - 6.0 ADA THERAPEUTIC TARGET < 7.0 ACTION SUGGESTED > 7.0 Performed By: #### D ATA1C #### [facility] [address] [address] [address] Dileep Figueroa Glucose [Mass/Vol] 200 mg/dL Normal [facility] Comment on above: Performed By: #### D ATA1C #### [facility] [address] [address] [address] Dileep Figueroa HbA1c (Bld) [Mass fraction] 8.6 % Critically high 4.5-6.2 [facility] Comment on above: Performed By: #### D ATA1C #### [facility] [address] [address] [address] Dileep Figueroa Glucose Glucometer (BldC) [M ass/Vol]Ordered By: Sonido Calvert on 10-03-2022 Glucose [Mass/Vol] 280 mg/dL [facility] Comment on above: Random Glucose Refer ence Range is dependent on time and content of last meal. Glucose of more than 200 mg/dL in a nonstressed, ambulatory subject supports the diagnosis of Diabetes Mellitus. Creatinine and Glomerular fi ltration rate.predicted panel (S/P/Bld)Ordered By: Jose Luis Cheney on 10-02-2022 Creatinine [Mass/Vol] 0.89 mg/dL 0.64-1.27 [facility] Estimated glomerular filtrat ion rate (GFR) non- AmericanOrdered By: Jose Lusi Cheney on 10-02-2022 GFR/1.73 sq M.predicted among non-blacks MDRD (S/P/Bld) [Vol rate/Area] > 60 mL/Min [facility] No Panel InformationOrdered By: Sonido Calvert on 10-02-2022 Bedside Glucose Comment Glu2: cleaned meter [facility] No Panel InformationOrdered By: Jose Luis Cheney on 10-02-2022 Estimated GFR () > 60 mL/Min [facility] Comment on above: GFR estimated refere nce range: According to KDOQI guidelines, <60 ml/min/1.73m2 is sufficient to diagnose a patient with chronic kidney disease. Pharmacy Creatinine Clearance (Chem 89.54 [facility] Serum or plasma anion gap de terminationOrdered By: Jose Luis Cheney on 10-02-2022 Anion gap [Moles/Vol] 17.2 mmol/L 6.0-15.0 [facility] Serum or plasma calcium dana urement (mass/volume)Ordered By: Jose Luis Cheney on 10-02-2022 Calcium [Mass/Vol] 9.6 mg/dL 8.2-10.2 [facility] Serum or plasma chloride noemy surement (moles/volume)Ordered By: Jose Luis Cheney on 10-02-2022 Chloride [Moles/Vol] 97 mmol/L 95-114 [facility] Serum or plasma glucose dana urement (mass/volume)Ordered By: Jose Luis Cheney on 10-02-2022 Glucose [Mass/Vol] 219 mg/dL 70-100 [facility] Comment on above: ADA recommended refe rence rangeRandom Glucose Reference Range is dependent on time and content of last meal. Glucose of more than 200 mg/dL in a nonstressed, ambulatory subject supports the diagnosis of Diabetes Mellitus. Serum or plasma potassium me asurement (moles/volume)Ordered By: Jose Luis Cheney on 10-02-2022 Potassium [Moles/Vol] 3.9 mmol/L 3.5-5.1 [facility] Serum or plasma sodium measu rement (moles/volume)Ordered By: Jose Luis Cheney on 10-02-2022 Sodium [Moles/Vol] 135 mmol/L 136-146 [facility] Serum or plasma total carbon dioxide measurement (moles/volume)Ordered By: Jose Luis Cheney on 10-02-2022 CO2 [Moles/Vol] 24.7 mmol/L 22.0-30.0 [facility] Serum or plasma urea nitroge n measurement (mass/volume)Ordered By: Jose Luis Cheney on 10-02-2022 Urea nitrogen [Mass/Vol] 18 mg/dL 9-23 [facility] COVID-19 SOFIAOrdered By: Bert Scott on 09-28-2022 SARS-CoV+SARS-CoV-2 (COVID-19) Ag IA.rapid Ql (Resp) Negative Negative [facility] Comment on above: This is a duplicate Adina SARS Antigen (THERON) result to be used for statistical tracking purpose only. No Panel InformationOrdered By: Sonido Calvert on 09-28-2022 SARS Antigen (LFIA) [facility] GLYCOHEMOGLOBIN A1Con 2021 ADA RECOMMENDATION SEE BELOW Normal [facility] Comment on above: Result Comment: ADA RECOMMENDED LIMIT 4.0 - 6.0 ADA THERAPEUTIC TARGET < 7.0 ACTION SUGGESTED > 7.0 Performed By: #### P [facility] #### [facility] [address] [address] [address] Dileep Figueroa Glucose [Mass/Vol] 186 mg/dL Normal [facility] Comment on above: Performed By: #### P SASC #### [facility] [address] [address] [address] Dileep Figueroa HbA1c (Bld) [Mass fraction] 8.1 % Critically high 4.5-6.2 [facility] Comment on above: Performed By: #### P SASC #### [facility] [address] [address] [address] Dileep Figueroa PROF CHEM 8 (BAS METB)on Anion gap [Moles/Vol] 12.3 mmol/L Normal [facility] Comment on above: Performed By: #### D ATA1C #### [facility] [address] [address] [address] Dileep Figueroa Calcium [Mass/Vol] 9.2 mg/dL Normal 8.5-10.1 [facility] Comment on above: Performed By: #### D ATA1C #### [facility] [address] [address] [address] Dileep Figueroa Chloride [Moles/Vol] 100 mmol/L Normal 98-107 [facility] Comment on above: Performed By: #### D ATA1C #### [facility] [address] [address] [address] Dileep Figueroa CO2 [Moles/Vol] 27.5 mmol/L Normal 21.0-32.0 [facility] Comment on above: Performed By: #### D ATA1C #### [facility] [address] [address] [address] Dileep Figueroa Creatinine [Mass/Vol] 0.89 mg/dL Normal 0.70-1.30 [facility] Comment on above: Performed By: #### D ATA1C #### [facility] [address] [place] [address] Dr. Dileep Figueroa EGFR-AF GEORGIAN >60 Normal >=60 [facility] Comment on above: Performed By: #### D ATA1C #### [facility] [address] [place] [address] Dr. Dileep Figueroa EGFR-NON AF GEORGIAN >60 Normal >=60 [facility] Comment on above: Performed By: #### D ATA1C #### [facility] [address] [address] [address] Dileep Figueroa Glucose [Mass/Vol] 205 mg/dL Critically high 74-106 [facility] Comment on above: Performed By: #### D ATA1C #### [facility] [address] [id number] [address] Dileep Figueroa Potassium [Moles/Vol] 3.8 mmol/L Normal 3.5-5.1 [facility] Comment on above: Performed By: #### D ATA1C #### [facility] [address] [address] [address] Dileep Figueroa Sodium [Moles/Vol] 136 mmol/L Normal 136-145 [facility] Comment on above: Performed By: #### D ATA1C #### [facility] [address] [address] [address] Dileep Figueroa Urea nitrogen [Mass/Vol] 18.0 mg/dL Normal 7.0-18.0 [facility] Comment on above: Performed By: #### D ATA1C #### [facility] [address] [address] [address] Dileep Figueroa Urea nitrogen/Creatinine [Mass ratio] 20.2 mg/mg Normal [facility] Comment on above: Performed By: #### D ATA1C #### [facility] [address] [address] [address] Dileep Figueroa Office Visit (Cardiology)on 09-26-2022 Follow-up visit Diagnoses/Problems Assessed Class 1 obesity with body mass index (BMI) of 31.0 to 31.9 in adult (278.00,V85.31) (E66.9,Z68.31) Never a smoker Pre-operative examination (V72.84) (Z01.818) Hypertension (401.9) (I10) Diabetes (250.00) (E11.9) History of stroke (V12.54) (Z86.73) Orders Class 1 obesity with body mass index (BMI) of 31.0 to 31.9 in adult Healthy Weight Tips; Status:Complete - Retrospective Authorization; Done: 26Sep2022 Some eating tips that can help you lose weight.; Status:Complete - Retrospective Authorization; Done: 26Sep2022 Pre-operative examination IO EKG Electrocardiogram- 12 Lead; Status:Complete; Done: 26Sep2022 SocHx: Never a smoker Tobacco Use Screening; Status:Complete; Done: 26Sep2022 Unlinked Stop: Aspirin 325 MG Oral Tablet Delayed Release Patient Instructions Please bring all medicines, vitamins, and herbal supplements with you when you come to the office. Prescriptions will not be filled unless you are compliant with your follow up appointments or have a follow up appointment scheduled as per instruction of your physician. Refills should be requested at the time of your visit. Patient is cleared for surgery from a cardiac standpoint. Follow up as needed only. Chief Complaint L5 fusion. CALE KRAUSE is being seen for follow-up of a hospitalization for pre-operative clearance. 67-year-old gentleman seen in cardiology consultation at the request of anesthesia and Dr. Calvert for preoperative risk assessment clearance prior to L5 fusion. Patient describes a recent event while lifting heavy chains with subsequent left arm, bilateral lower extremity numbness. He has no cardiovascular complaints. He is ambulating well other than fatigue with both legs and numbness with both legs. Underlying comorbidities are noted for diabetes, hyperlipidemia, previous stroke with no intervention, he is a never smoker. He denies syncope, angina, heart failure, hospitalizations ECG reveals sinus bradycardia with first-degree AV block on current therapies Incidentally with his stroke he has been treated with regular adult strength aspirin and baby aspirin con jointly (325+81 mg). He is able to complete greater than 4-7 METS of activity on a daily basis; he has never had stress testing performed Procedure itself is a very low risk procedure and is an outpatient procedure. Is overall risk for cardiovascular morbidity perioperative events is anywhere between 5 and 6% given comorbidities, age. Recommendations: Discontinue adult strength aspirin, he will likely need to hold his aspirin prior to lumbar surgery altogether, he is stable from a cardiovascular standpoint to proceed with this low risk procedure and can follow-up on a as needed basis Surgical History Problems Denied: History of Colonoscopy History of Knee surgery History of Tonsillectomy History of [place] tooth extraction Current Meds Medication NameInstruction amLODIPine Besylate 5 MG Oral TabletTake 1 tablet daily Aspirin 325 MG Oral Tablet Delayed ReleaseTake 1 tablet daily Aspirin EC 81 MG Oral Tablet Delayed ReleaseTAKE 1 TABLET Daily Carvedilol 12.5 MG Oral TabletTAKE 1 TABLET TWICE DAILY. Famotidine 20 MG Oral TabletTAKE 1 TABLET TWICE DAILY. Glimepiride 1 MG Oral TabletTake 1 tablet daily Lisinopril-hydroCHL OROthiazide 20-12.5 MG Oral TabletTake 1 tablet daily Nmfxb-Gg-Zieg TABSTake 1 tablet daily Vitamin D3 125 MCG (5000 UT) Oral CapsuleTAKE 1 CAPSULE Daily Zinc 50 MG Oral TabletTAKE 1 TABLET DAILY. ZyrTEC Allergy 10 MG Oral TabletTake 1 tablet daily Allergies Medication Penicillins Recorded By: Rhonda Amado; 09/26/2022 11:51:56 AM Family History Mother Family history of diabetes mellitus (V18.0) (Z83.3) Father Family history of cardiac disorder (V17.49) (Z82.49) Family history of diabetes mellitus (V18.0) (Z83.3) Brother Family history of coronary artery disease (V17.3) (Z82.49) Social History Problems Caffeine use (V49.89) (Z78.9) a thermos daily of coffee Consumes alcohol (V49.89) (Z78.9) couple beers daily Never a smoker No illicit drug use Review of Systems Constitutional: not feeling tired. Eyes: no eyesight problems. ENT: no hearing loss and no nosebleeds. Cardiovascular: no intermittent leg claudication and as noted in HPI. Respiratory: no chronic cough and no shortness of breath. Gastrointestinal: no change in bowel habits and no blood in stools. Genitourinary: no urinary frequency and no hematuria. Skin: no skin rashes. Neurological: dizziness and numbness, but no seizures and no frequent falls. Psychiatric: no depression and not suicidal. All other systems have been reviewed and are negative for complaint. Vitals Vital Signs Recorded: 26Sep2022 12:00PMRecorded: 26Sep2022 11:58AM Heart Rate55, Jfpkls46, Apical Drngyqfr776, LUE, Emmmbbp564, RUE, Sitting Gbaqvauso90, LUE, Tewwfdy12, RUE, Sitting Height5 ft 7 in5 ft 7 in Jmdkzx991 lb 203 lb (more content not included)... Normal [facility] Tobacco Screening.on 022 Adult depression screening assessment No [facility] Work Phone: Fall risk assessment a) No falls within the last year [facility] 250 DO Work Phone: Tobacco use status [facility] b) No [facility] 250 DO Work Phone: Basophils Auto (Bld) [#/Vol] Ordered By: Sonido Calvert on 09-20-2022 Basophils (Bld) [#/Vol] 0.1 10*3/uL 0.0-0.2 [facility] Basophils/100 WBC Auto (Bld) Ordered By: Sonido Calvert on 09-20-2022 Basophils/100 WBC (Bld) 1.8 % . [facility] Creatinine and Glomerular fi ltration rate.predicted panel (S/P/Bld)Ordered By: Sonido Calvert on 09-20-2022 Creatinine [Mass/Vol] 0.86 mg/dL 0.64-1.27 [facility] Eosinophils Auto (Bld) [#/Vo l]Ordered By: Sonido Calvert on 09-20-2022 Eosinophils (Bld) [#/Vol] 0.7 10*3/uL 0.0-0.45 [facility] Eosinophils/100 WBC Auto (Bl d)Ordered By: Sonido Calvert on 09-20-2022 Eosinophils/100 WBC (Bld) 9.6 % . [facility] Erythrocyte distribution wid th Auto (RBC) [Ratio]Ordered By: Sonido Calvert on 09-20-2022 Erythrocyte distribution width (RBC) [Ratio] 13.8 % 12.0-14.8 [facility] Estimated glomerular filtrat ion rate (GFR) non- AmericanOrdered By: Sonido Calvert on 09-20-2022 GFR/1.73 sq M.predicted among non-blacks MDRD (S/P/Bld) [Vol rate/Area] > 60 mL/Min [facility] Hematocrit Auto (Bld) [Volum e fraction]Ordered By: Sonido Calvert on 09-20-2022 Hematocrit (Bld) [Volume fraction] 47.1 % 38.8-50.0 [facility] Hemoglobin [Mass/volume] in BloodOrdered By: Sonido Calvert on 09-20-2022 Hemoglobin (Bld) [Mass/Vol] 15.7 g/dL 13.0-17.0 [facility] Laboratory - Hematology and Cell countsOrdered By: Sonido Calvert on 09-20-2022 Nucleated RBC/100 WBC (Bld) [Ratio] 0.2 % 0-0.5 [facility] Leukocytes [#/volume] in Blo od by Automated countOrdered By: Sonido Calvert on 09-20-2022 WBC (Bld) [#/Vol] 7.8 10*3/uL 4.5-11.0 [facility] Lymphocytes Auto (Bld) [#/Vo l]Ordered By: Sonido Calvert on 09-20-2022 Lymphocytes (Bld) [#/Vol] 2.0 10*3/uL 1.00-4.8 [facility] Lymphocytes/100 WBC Auto (Bl d)Ordered By: Sonido Calvert on 09-20-2022 Lymphocytes/100 WBC (Bld) 26.0 % . [facility] MCH Auto (RBC) [Entitic mass ]Ordered By: Sonido Calvert on 09-20-2022 MCH (RBC) [Entitic mass] 30.2 pg 27.5-35.2 [facility] MCHC Auto (RBC) [Mass/Vol]Or dered By: Sonido Calvert on 09-20-2022 MCHC (RBC) [Mass/Vol] 33.4 g/dL 32.5-35.6 [facility] MCV Auto (RBC) [Entitic vol] Ordered By: Sonido Calvert on 09-20-2022 MCV (RBC) [Entitic vol] 90.3 fL 83.5-[address] [facility] Monocytes Auto (Bld) [#/Vol] Ordered By: Sonido Calvert on 09-20-2022 Monocytes (Bld) [#/Vol] 0.7 10*3/uL 0.0-0.8 [facility] Monocytes/100 WBC Auto (Bld) Ordered By: Sonido Calvert on 09-20-2022 Monocytes/100 WBC (Bld) 9.6 % . [facility] Neutrophils Auto (Bld) [#/Vo l]Ordered By: Sonido Calvert on 09-20-2022 Neutrophils (Bld) [#/Vol] 4.1 10*3/uL 1.8-7.7 [facility] Neutrophils/100 WBC Auto (Bl d)Ordered By: Sonido Calvert on 09-20-2022 Neutrophils/100 WBC (Bld) 53.0 % . [facility] No Panel InformationOrdered By: Sonido Calvert on 09-20-2022 Estimated GFR () > 60 mL/Min [facility] Comment on above: GFR estimated refere nce range: According to KDOQI guidelines, <60 ml/min/1.73m2 is sufficient to diagnose a patient with chronic kidney disease. Pharmacy Creatinine Clearance (Chem N/A [facility] Platelet mean volume Auto (B ld) [Entitic vol]Ordered By: Sonido Calvert on 09-20-2022 Platelet mean volume (Bld) [Entitic vol] 8.3 fL 6.6-10.1 [facility] Platelets Auto (Bld) [#/Vol] Ordered By: Sonido Calvert on 09-20-2022 Platelets (Bld) [#/Vol] 205 10*3/uL 150-450 [facility] RBC Auto (Bld) [#/Vol]Ordere d By: Sonido Calvert on 09-20-2022 RBC (Bld) [#/Vol] 5.21 10*6/uL 3.90-5.60 [facility] Serum or plasma anion gap de terminationOrdered By: Sonido Calvert on 09-20-2022 Anion gap [Moles/Vol] 16.5 mmol/L 6.0-15.0 [facility] Serum or plasma calcium dana urement (mass/volume)Ordered By: Sonido Calvert on 09-20-2022 Calcium [Mass/Vol] 9.2 mg/dL 8.2-10.2 [facility] Serum or plasma chloride noemy surement (moles/volume)Ordered By: Sonido Calvert on 09-20-2022 Chloride [Moles/Vol] 101 mmol/L 95-114 [facility] Serum or plasma glucose dana urement (mass/volume)Ordered By: Sonido Calvert on 09-20-2022 Glucose [Mass/Vol] 261 mg/dL 70-100 [facility] Comment on above: ADA recommended refe rence rangeRandom Glucose Reference Range is dependent on time and content of last meal. Glucose of more than 200 mg/dL in a nonstressed, ambulatory subject supports the diagnosis of Diabetes Mellitus. Serum or plasma potassium me asurement (moles/volume)Ordered By: Sonido Calvert on 09-20-2022 Potassium [Moles/Vol] 5.6 mmol/L 3.5-5.1 [facility] Comment on above: SPECIMEN HEMOLIZED, SUGGEST RECOLLECTING LFM --- 09/20/22 1527 ---K previously reported as: 5.6 H mmol/L Serum or plasma sodium measu rement (moles/volume)Ordered By: Sonido Calvert on 09-20-2022 Sodium [Moles/Vol] 134 mmol/L 136-146 [facility] Serum or plasma total carbon dioxide measurement (moles/volume)Ordered By: Sonido Calvert on 09-20-2022 CO2 [Moles/Vol] 22.1 mmol/L 22.0-30.0 [facility] Serum or plasma urea nitroge n measurement (mass/volume)Ordered By: Sonido Calvert on 09-20-2022 Urea nitrogen [Mass/Vol] 18 mg/dL 07-21 [facility] XR lumbar spine 6V w bending on 09-12-2022 XR lumbar spine 6V w bending [facility] [employer] [facility] [employer] Other XR lumbar spine 6V w bending [facility] [employer] Other XR lumbar spine 6V w bending [address] [place] [address] [employer] Other XR lumbar spine 6V [place] [address] [employer] Other XR lumbar spine 6V w bending XRay Report [employer] Other XR lumbar spine 6V w bending Signed [employer] Other XR lumbar spine 6V w bending Patient: Cale Krause MR#: [id number] [employer] Other XR lumbar spine 6V w bending : 1955 Acct:[id number] [employer] Other XR lumbar spine 6V w bending Age/Sex: 67 / M ADM Date: 09/12/22 [employer] Other XR lumbar spine 6V w bending Loc: XD Room: Type: [facility] [employer] Other XR lumbar spine 6V w bending Attending Dr: Sonido Calvert MD [employer] Other XR lumbar spine 6V w bending Copies to: Sonido Calvert MD [employer] Other XR lumbar spine 6V w bending Ordering Provider: Sonido Calvert MD [employer] Other XR lumbar spine 6V w bending Date of Service: 09/12/22 [employer] Other XR lumbar spine 6V w bending XR/XR cerv spine AP/LAT/FLX/EXT: M48.02 [employer] Other XR lumbar spine 6V w bending ([id number]) XR/XR lumbar spine 6V w bending: M48.062 [employer] Other XR lumbar spine 6V w bending CLINICAL HISTORY: Low back pain with numbness rate down the legs. Neck pain on the left. [employer] Other XR lumbar spine 6V w bending CERVICAL SPINE WITH FLEXION AND EXTENSION VIEWS -4 views: [employer] Other XR lumbar spine 6V w bending COMPARISON: CT 08/03/2022 [employer] Other XR lumbar spine 6V w bending AP as well as lateral views in neutral, flexion and extension were obtained. There are no acute [employer] Other XR lumbar spine 6V w bending compression fractures. There is minimal anterolisthesis of C6 on C7. Alignment does not change [employer] Other XR lumbar spine 6V w bending significantly with flexion or extension. There is disc space narrowing at C3-4, C5-6 and C6-7. [employer] Other XR lumbar spine 6V w bending There is endplate spurring as well as bilateral facet hypertrophy. Degenerative changes are also [employer] Other XR lumbar spine 6V w bending seen at the C1-2 facets, greater on the left where small bony ossicles are present. No prevertebral [employer] Other XR lumbar spine 6V w bending soft tissue swelling is seen. [employer] Other XR lumbar spine 6V w bending XR/XR cerv spine AP/LAT/FLX/EXT [employer] Other XR lumbar spine 6V w bending IMPRESSION: [employer] Other XR lumbar spine 6V w bending DEGENERATIVE CHANGES DESCRIBED. SIMILAR FINDINGS WERE SEEN ON THE RECENT CT. [employer] Other XR lumbar spine 6V w bending LUMBAR SPINE WITH FLEXION, EXTENSION AND BENDING VIEWS - 6 views [employer] Other XR lumbar spine 6V w bending COMPARISON: MRI 08/11/2022 [employer] Other XR lumbar spine 6V w bending Standing AP neutral, right and left bending as well as lateral views in neutral, flexion and [employer] Other XR lumbar spine 6V w bending extension were obtained. 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 There are no acute [employer] Other XR lumbar spine 6V w bending fractures. Minor retrolisthesis of L1 on L2 and L2 on L3 is seen. There is also slight [employer] Other XR lumbar spine 6V w bending anterolisthesis of L3 on L4 and L4 and L5. Alignment does not change significantly with flexion or [employer] Other XR lumbar spine 6V w bending extension. There is mild multilevel disc space narrowing. There is endplate spurring as well as [employer] Other XR lumbar spine 6V w bending mid and lower lumbar facet hypertrophy. The SI joints are intact. There is minor atherosclerotic [employer] Other XR lumbar spine 6V w bending disease. No paraspinal soft tissue abnormalities are present. [employer] Other XR lumbar spine 6V w bending DEGENERATIVE CHANGES, DESCRIBED. [employer] Other XR lumbar spine 6V w bending Impression dictated by: Toya Nascimento M.D.09/12/2022 5:26 PM [employer] Other XR lumbar spine 6V w bending Dictation Location: [place] [address] [employer] Other XR lumbar spine 6V w bending Transcribed By: [facility] 09/12/22 1726 [employer] Other XR lumbar spine 6V w bending Dictated By: Toya Nascimento MD 09/12/22 1719 [employer] Other XR lumbar spine 6V w bending Signed By: [employer] Other XR lumbar spine 6V w bending 09/12/22 1726 [employer] Other MRI LSPINE WO CONon 08-11-20 MRI LSPINE WO CON EXAMINATION: MRI LSPINE WO CON HISTORY: Lumbar spondylosis with myelopathy COMPARISON: No relevant comparison available. TECHNIQUE: A variety of imaging planes and parameters were utilized for visualization of suspected pathology. FINDINGS: For the purposes of numbering, sagittal T2 image # 8 extends from the T11 vertebral body superiorly to the S3-S4 level inferiorly. PARASPINAL AREA: Normal with no visible mass. BONES: 2 mm anterolisthesis of L4 in relation L5. No acute fracture or bone edema. CORD/CAUDA EQUINA: There is heterogeneous appearance of the cauda equina best seen on sagittal image #8 DISC LEVELS: 12-L1: No significant disc/facet abnormality, spinal stenosis, or foraminal stenosis. L1-L2: No significant disc/facet abnormality, spinal stenosis, or foraminal stenosis. L2-L3: Disc space narrowing and disc desiccation. Mild posterior disc/osteophyte complex. Moderate ligamentum flavum hypertrophy. No central or foraminal stenosis L3-L4: Moderate disc space narrowing. Mild to moderate posterior disc/osteophyte complex. Ligament flavum hypertrophy and facet osteoarthropathy. Moderate narrowing of the central canal. No foraminal stenosis L4-L5: Moderate disc space narrowing. Mild to moderate diffuse disc/ osteophyte complex. Moderate ligamentum flavum hypertrophy and facet osteoarthropathy. Moderate to severe central canal stenosis. No foraminal stenosis L5-S1: Mild disc space narrowing and disc desiccation. Mild to moderate diffuse disc/osteophyte complex most significant along the left neural foramen. No central canal or foraminal stenosis IMPRESSION: Heterogeneous appearance of the cauda equina at the L2-L3 level. Postcontrast MRI is required for further evaluation Degenerative changes with central canal stenosis at L3-L5 Electronically authenticated by: JOSE LUIS LÓPEZ Date: 2022-08-11 17:17 Normal [facility]20 22 MRI [facility] WO CON EXAMINATION: MRI CSPINE WO CON HISTORY: Spinal stenosis COMPARISON: None. TECHNIQUE: Multiplanar, multisequence MRI images of the cervical spine were obtained without contrast. FINDINGS: There is straightening of the cervical spine. No subluxation. Moderate disc space narrowing at C5-C6 and C6-C7 with anterior osteophytes. Craniocervical junction is normal. There is no evidence for a Chiari I malformation. The cervical cord appears within normal limits in size and contour. There is no convincing abnormal signal in the cervical spinal cord. C2-C3: Moderate facet arthropathy without stenosis. C3-C4: Broad-based disc osteophyte complex and moderate facet arthropathy. Mild spinal canal and moderate right foraminal stenosis. C4-C5: Broad-based disc osteophyte complex, moderate right and severe left facet arthropathy. Moderate central spinal canal stenosis. Moderate right and severe left foraminal stenosis. C5-C6: Broad-based disc osteophyte complex and moderate facet arthropathy. Severe spinal canal and right foraminal stenosis. C6-C7: Disc osteophyte complex and moderate facet arthropathy. Mild spinal canal and mild right foraminal stenosis. C7-T1: Disc osteophyte complex and moderate facet arthropathy. Moderate to severe spinal canal, severe right foraminal stenosis. IMPRESSION: 1. Moderate multilevel degenerative disc disease and facet arthropathy in the cervical spine. 2. There is resulting multiple levels of central spinal canal and foraminal stenosis as described. Electronically authenticated by: ROSALIE KATZ Date: 2022-08-08 16:02 Normal [facility] CBC AUTO DIFFon 08-04-2022 BASO # 0.1 103/ul Normal 0.0-0.1 [facility] Comment on above: Performed By: #### P OCGLUC #### [facility] [address] [address] [address] Dileep Figueroa Basophils/100 WBC (Bld) 1.5 % Normal 0.2-2.0 [facility] Comment on above: Performed By: #### P OCGLUC #### [facility] [address] [place] [address] Dr. Dileep Figueroa EO # 0.6 103/ul Normal 0.0-0.7 [facility] Comment on above: Performed By: #### P OCGLUC #### [facility] [address] [address] [address] Dileep Figueroa Eosinophils/100 WBC (Bld) 8.9 % Critically high 0.9-7.0 [facility] Comment on above: Performed By: #### P OCGLUC #### [facility] [address] [place] [address] Dr. Dileep Figueroa Erythrocyte distribution width (RBC) [Ratio] 13.3 % Normal 11.0-15.0 [facility] Comment on above: Performed By: #### P OCGLUC #### [facility] [address] [place] [address] Dr. Dileep Figueroa Hematocrit (Bld) [Volume fraction] 42.6 % Normal 42.0-54.0 [facility] Comment on above: Performed By: #### P OCGLUC #### [facility] [address] [place] [address] Dr. Dileep Figueroa Hemoglobin (Bld) [Mass/Vol] 14.6 g/dL Normal 14.0-18.0 [facility] Comment on above: Performed By: #### P OCGLUC #### [facility] [address] [address] [address] Dileep Figueroa IG # 0.04 10e3/ul Critically high 0.00-0.03 [facility] Comment on above: Performed By: #### P OCGLUC #### [facility] [address] [address] [address] Dileep Figueroa IG % 0.6 % Critically high 0.0-0.5 [facility] Comment on above: Performed By: #### P OCGLUC #### [facility] [address] [address] [address] Dileep Figueroa LYMPH # 2.3 103/ul Normal 1.2-3.8 [facility] Comment on above: Performed By: #### P OCGLUC #### [facility] [address] [address] [address] Dileep Figueroa Lymphocytes/100 WBC (Bld) 32.7 % Normal 20.5-60.0 [facility] Comment on above: Performed By: #### P OCGLUC #### [facility] [address] [address] [address] Dileep Figueroa MANUAL DIFF REQ NO Normal [facility] Comment on above: Performed By: #### P OCGLUC #### [facility] [address] [address] [address] Dileep Figueroa MCH (RBC) [Entitic mass] 30.7 pg Normal 25.9-34.0 [facility] Comment on above: Performed By: #### P OCGLUC #### [facility] [address] [address] [address] Dileep Figueroa MCHC (RBC) [Mass/Vol] 34.3 g/dL Normal 29.9-35.2 [facility] Comment on above: Performed By: #### P OCGLUC #### [facility] [address] [address] [address] Dileep Figueroa MCV (RBC) [Entitic vol] 89.5 fL Normal 80.0-94.0 [facility] Comment on above: Performed By: #### P OCGLUC #### [facility] [address] [address] [address] Dileep Figueroa MONO # 0.7 103/ul Normal 0.3-0.8 [facility] Comment on above: Performed By: #### P OCGLUC #### [facility] [address] [address] [address] Dileep Figueroa Monocytes/100 WBC (Bld) 9.7 % Normal 1.7-12.0 [facility] Comment on above: Performed By: #### P OCGLUC #### [facility] [address] [address] [address] Dileep Figueroa NEUT # 3.3 103/ul Normal 1.4-6.5 [facility] Comment on above: Performed By: #### P OCGLUC #### [facility] [address] [place] [address] Dr. Dileep Figueroa Neutrophils/100 WBC (Bld) 46.6 % Normal 43.0-75.0 [facility] Comment on above: Performed By: #### P OCGLUC #### [facility] [address] [place] [address] Dr. Dileep Figueroa Platelet mean volume (Bld) [Entitic vol] 9.6 fL Normal 9.5-13.5 [facility] Comment on above: Performed By: #### P OCGLUC #### [facility] [address] [address] [address] Dileep Figueroa PLT 203 103/ul Normal 150-450 [facility] Comment on above: Performed By: #### P OCGLUC #### [facility] [address] [address] [address] Dileep Figueroa RBC 4.76 106/ul Normal 4.70-6.10 [facility] Comment on above: Performed By: #### P OCGLUC #### [facility] [address] [address] [address] Dileep Figueroa WBC 7.1 103/ul Normal 4.0-11.0 [facility] Comment on above: Performed By: #### P OCGLUC #### [facility] [address] [address] [address] Dileep Figueroa POINT OF CARE GLUCOSEon 10-0 Glucose [Mass/Vol] 158 mg/dL Critically high 74-106 [facility] Comment on above: Performed By: #### D ATA1C #### [facility] [address] [address] [address] Dileep Figueroa PROF CHEM 8 (BAS METB)on Anion gap [Moles/Vol] 8.2 mmol/L Normal [facility] Comment on above: Performed By: #### P SASC #### [facility] [address] [address] [address] Dileep Figueroa Calcium [Mass/Vol] 8.6 mg/dL Normal 8.5-10.1 [facility] Comment on above: Performed By: #### P SASC #### [facility] [address] [address] [address] Dileep Figueroa Chloride [Moles/Vol] 106 mmol/L Normal 98-107 [facility] Comment on above: Performed By: #### P SASC #### [facility] [address] [address] [address] Dileep Figueroa CO2 [Moles/Vol] 28.2 mmol/L Normal 21.0-32.0 [facility] Comment on above: Performed By: #### P SASC #### [facility] [address] [address] [address] Dileep Figueroa Creatinine [Mass/Vol] 0.80 mg/dL Normal 0.70-1.30 [facility] Comment on above: Performed By: #### P SASC #### [facility] [address] [address] Dr. Dileep Figueroa EGFR-AF GEORGIAN >60 Normal >=60 [facility] Comment on above: Performed By: #### P SASC #### [facility] [address] [place] [address] Dr. Dileep Figueroa EGFR-NON AF GEORGIAN >60 Normal >=60 [facility] Comment on above: Performed By: #### P SASC #### [facility] [address] [address] [address] Dileep Figueroa Glucose [Mass/Vol] 137 mg/dL Critically high 74-106 [facility] Comment on above: Performed By: #### P SASC #### [facility] [address] [address] [address] Dileep Figueroa Potassium [Moles/Vol] 3.4 mmol/L Critically low 3.5-5.1 [facility] Comment on above: Performed By: #### P SASC #### [facility] [address] [address] [address] Dileep Figueroa Sodium [Moles/Vol] 139 mmol/L Normal 136-145 [facility] Comment on above: Performed By: #### P SASC #### [facility] [address] [address] [address] Dileep Figueroa Urea nitrogen [Mass/Vol] 21.0 mg/dL Critically high 7.0-18.0 [facility] Comment on above: Performed By: #### P SASC #### [facility] [address] [address] [address] Dileep Figueroa Urea nitrogen/Creatinine [Mass ratio] 26.2 mg/mg Normal [facility] Comment on above: Performed By: #### P SASC #### [facility] [address] [address] [address] Dileep Figueroa BNPon 08-03-2022 Natriuretic peptide B (Bld) [Mass/Vol] 179.0 pg/mL Normal <=900.0 [facility] Comment on above: Performed By: #### D ATA1C #### [facility] [address] [address] [address] Dileep Figueroa CARDIAC ARNULFO ADMITon 022 CK [Catalytic activity/Vol] 162 U/L Normal 39-308 [facility] Comment on above: Performed By: #### D ATA1C #### [facility] [address] [address] [address] Dileep Figueroa CK.MB [Mass/Vol] 2.92 ng/mL Normal <=3.60 [facility] Comment on above: Performed By: #### D ATA1C #### [facility] [address] [place] [address] Dr. Dileep Figueroa HSTROP 12.0 pg/mL Normal 4.0-76.1 [facility] Comment on above: Result Comment: CUT- OFF POINTS HAVE BEEN ESTABLISHED BASED ON THE FOURTH UNIVERSAL DEFINITIONS OF MYOCARDIAL INFARCTION. THE UPPER REFERENCE LIMIT (URL) OF TROPONIN, DEFINED THE 99TH PERCENTILE OF cTnI DISTRIBUTION IN A REFERENCE POPULATION, HAS BEEN CONFIRMED THE DECISION THRESHOLD FOR SC DIAGNOSIS. Performed By: #### D ATA1C #### [facility] [address] [address] [address] Dileep Figueroa ELE 52 ng/mL Normal 16-96 [facility] Comment on above: Performed By: #### D ATA1C #### [facility] [address] [place] [address] Dr. Dileep Figueroa CBC AUTO DIFFon 08-03-2022 BASO # 0.1 103/ul Normal 0.0-0.1 [facility] Comment on above: Performed By: #### C BC #### [facility] [address] [place] [address] Dr. Dileep Figueroa Basophils/100 WBC (Bld) 1.8 % Normal 0.2-2.0 [facility] Comment on above: Performed By: #### C BC #### [facility] [address] [place] [address] Dr. Dileep Figueroa EO # 0.8 103/ul Critically high 0.0-0.7 [facility] Comment on above: Performed By: #### C BC #### [facility] [address] [place] [address] Dr. Dileep Figueroa Eosinophils/100 WBC (Bld) 9.4 % Critically high 0.9-7.0 [facility] Comment on above: Performed By: #### C BC #### [facility] [address] [place] [address] Dr. Dileep Figueroa Erythrocyte distribution width (RBC) [Ratio] 13.2 % Normal 11.0-15.0 [facility] Comment on above: Performed By: #### C BC #### [facility] [address] [address] [address] Dileep Figueroa Hematocrit (Bld) [Volume fraction] 45.2 % Normal 42.0-54.0 [facility] Comment on above: Performed By: #### C BC #### [facility] [address] [place] [address] Dr. Dileep Figueroa Hemoglobin (Bld) [Mass/Vol] 15.5 g/dL Normal 14.0-18.0 [facility] Comment on above: Performed By: #### C BC #### [facility] [address] [place] [address] Dr. Dileep Figueroa IG # 0.06 10e3/ul Critically high 0.00-0.03 [facility] Comment on above: Performed By: #### C BC #### [facility] [address] [place] [address] Dr. Dileep Figueroa IG % 0.8 % Critically high 0.0-0.5 [facility] Comment on above: Performed By: #### C BC #### [facility] [address] [place] [address] Dr. Dileep Figueroa LYMPH # 1.9 103/ul Normal 1.2-3.8 [facility] Comment on above: Performed By: #### C BC #### [facility] [address] [place] [address] Dr. Dileep Figueroa Lymphocytes/100 WBC (Bld) 23.2 % Normal 20.5-60.0 [facility] Comment on above: Performed By: #### C BC #### [facility] [address] [place] [address] Dr. Dileep Figueroa MANUAL DIFF REQ NO Normal [facility] Comment on above: Performed By: #### C BC #### [facility] [address] [place] [address] Dr. Dileep Figueroa MCH (RBC) [Entitic mass] 30.4 pg Normal 25.9-34.0 [facility] Comment on above: Performed By: #### C BC #### [facility] [address] [address] [address] Dileep Figueroa MCHC (RBC) [Mass/Vol] 34.3 g/dL Normal 29.9-35.2 [facility] Comment on above: Performed By: #### C BC #### [facility] [address] [place] [address] Dr. Dileep Figueroa MCV (RBC) [Entitic vol] 88.6 fL Normal 80.0-94.0 [facility] Comment on above: Performed By: #### C BC #### [facility] [address] [place] [address] Dr. Dileep Figueroa MONO # 0.8 103/ul Normal 0.3-0.8 [facility] Comment on above: Performed By: #### C BC #### [facility] [address] [place] [address] Dr. Dileep Figueroa Monocytes/100 WBC (Bld) 9.9 % Normal 1.7-12.0 [facility] Comment on above: Performed By: #### C BC #### [facility] [address] [place] [address] Dr. Dileep Figueroa NEUT # 4.4 103/ul Normal 1.4-6.5 [facility] Comment on above: Performed By: #### C BC #### [facility] [address] [place] [address] Dr. Dileep Figueroa Neutrophils/100 WBC (Bld) 54.9 % Normal 43.0-75.0 [facility] Comment on above: Performed By: #### C BC #### [facility] [address] [place] [address] Dr. Dileep Figueroa Platelet mean volume (Bld) [Entitic vol] 9.7 fL Normal 9.5-13.5 [facility] Comment on above: Performed By: #### C BC #### [facility] [address] [place] [address] Dr. Dileep Figueroa PLT 228 103/ul Normal 150-450 [facility] Comment on above: Performed By: #### C BC #### [facility] [address] [place], [place] [address] Dr. Dileep Figueroa RBC 5.10 106/ul Normal 4.70-6.10 [facility] Comment on above: Performed By: #### C BC #### [facility] [address] [place], [place] [address] Dr. Dileep Figueroa WBC 8.0 103/ul Normal 4.0-11.0 [facility] Comment on above: Performed By: #### C BC #### [facility] [address] [place], [place] [address] STROKE HEAD WOon 08-03-[address] STROKE HEAD WO EXAMINATION: CT STROKE HEAD WO, 08/03/2022 9:16 AM EDT HISTORY: Cerebrovascular accident left arm bilateral leg numbness COMPARISON: None. TECHNIQUE: CT scan of the head was performed without IV contrast. CT dose reduction technique was used, including Automated Exposure Control. FINDINGS: BRAIN: Mild generalized supratentorial atrophy. Scattered white matter hypoattenuation, age indeterminate normal lou-white differentiation. No acute parenchymal hemorrhage CSF SPACES: No hydrocephalus, subarachnoid hemorrhage, or mass. Appropriate for age. SKULL: No fracture, mass, or other significant visible lesion. SINUSES: Moderate diffuse paranasal sinus disease ORBITS: No appreciable abnormality on the limited views. OTHER: Findings discussed with emergency room physician at 9:57 am IMPRESSION: Atrophy and white matter disease. No definite acute infarct Electronically authenticated by: JOSE LUIS LÓPEZ Date: 2022-08-03 09:59 Normal [facility] CTA HEAD WO W CONon 08-03-20 22 CTA HEAD WO W CON EXAMINATION: CTA HEAD WO W CON, CTA NECK WO W CON HISTORY: Cerebrovascular accident COMPARISON: CT head without contrast, 08/03/2022. TECHNIQUE: Postcontrast axial CTA images were obtained through the head and neck. Reconstructed MIP images were obtained in the axial, sagittal and coronal planes. MIP (maximum intensity projection) images were performed. Dose reduction techniques were achieved by using automated exposure control and/or adjustment of mA and/or kV according to patient size and/or use of iterative reconstruction technique. FINDINGS: CTA BRAIN: No significant stenosis of the distal internal carotid arteries. Anterior cerebral arteries normal. Middle cerebral arteries appear normal. The right vertebral artery is dominant. Left vertebral artery is hypoplastic but appears to be patent and likely terminates as the left posterior inferior cerebellar artery. Right posterior inferior cerebellar artery patent. Basilar artery normal. Superior cerebellar arteries normal. Posterior cerebral arteries are normal. No proximal arterial occlusion. No aneurysm. Venous sinuses are patent. CTA NECK: Common carotid arteries are normal in caliber. There is noncalcified plaque in the right carotid bifurcation with mild stenosis. No significant stenosis of the right ICA. There is noncalcified plaque in the left carotid bifurcation without significant stenosis. No significant stenosis of the left internal carotid artery. Right vertebral artery is dominant. No stenosis of the right vertebral artery. Left vertebral artery is hypoplastic but patent. No neck mass. No lymphadenopathy in the neck. Osseous structures are unremarkable. IMPRESSION: 1. No proximal intracranial arterial occlusion or significant stenosis. No aneurysm. No vascular malformation. 2. No significant carotid artery stenosis in the neck. 3. Right vertebral is dominant. No stenosis of the right vertebral artery. Left vertebral artery is hypoplastic but patent. Electronically authenticated by: LIVE NOLASCO Date: 2022-08-03 13:03 Normal [facility] Covid-19 PCR (CVDTB)on SARS-CoV-2 (COVID-19) RNA TIMO+probe Ql (Unsp spec) Not detected Normal NOT DETECTED [facility] Comment on above: Result Comment: When diagnostic testing is negative, the possibility of a false negative should be considered in the context of a patient's recent exposures and the presence of clinical signs and symptoms consistent with SARS-CoV-2. This test is not yet approved or cleared by the [place] FDA. When there are no FDA-approved or cleared tests available, and other criteria are met, FDA can make tests available under an emergency access mechanism called an Emergency Use Authorization (EUA). The EUA for this test is supported by the [place] of Health and Human Service's declaration that circumstances exist to justify the emergency use of in vitro diagnostics for the detection and/or diagnosis of the virus that causes COVID-19. This EUA will remain in effect for the duration of the COVID-19 declaration justifying emergency of IVDs, unless it is terminated or revoked by the FDA (after which the test may no longer be used). Performed By: #### P [facility] #### [facility] [address] [address] [address] Dileep Figueroa MRI BRAIN WO CONon 2 MRI BRAIN WO CON MRI BRAIN WITHOUT CONTRAST. INDICATION: Cerebrovascular accident COMPARISON: 06/14/2020 TECHNIQUE: MR imaging of the brain using the following unenhanced sequences: Axial diffusion, axial FLAIR, axial T2 weighted, coronal and sagittal T1, coronal gradient-echo T2. FINDINGS: EXTRA-AXIAL SPACE:Age appropriate ventricles. No extra-axial collection. CEREBRUM: There are T2/FLAIR hyperintense signal changes in the periventricular and deep white matter, which is nonspecific but likely reflective of chronic microvascular ischemic disease. No areas of restricted diffusion. No acute infarct, hemorrhage or mass. CEREBELLUM: No signal abnormality. No areas of restricted diffusion. No acute infarct, hemorrhage or mass. BRAINSTEM: No signal abnormality. No areas of restricted diffusion. No acute infarct, hemorrhage or mass. EXTRACRANIAL STRUCTURES:There is mild mucosal thickening of the paranasal sinuses Mastoid air cells are clear. Globes and orbits are normal. Normal pituitary gland. Normal calvarium. Findings are suspicious for compression of the cervical spinal cord at the C5-C6 level. IMPRESSION: 1. No acute intracranial abnormality. No acute infarct, hemorrhage or discrete intraparenchymal mass. 2. Findings are suspicious for compression of the cervical spine at the C5-C6 level. Correlate clinically and consider MRI cervical spine. 3. Mild chronic microvascular ischemic changes. Electronically authenticated by: LESLIE GILMORE Date: 2022-08-03 17:50 Normal [facility] POINT OF CARE GLUCOSEon 10-0 Glucose [Mass/Vol] 255 mg/dL Critically high 74-106 [facility] Comment on above: Performed By: #### P OCGLUC #### [facility] [address] [address] [address] Dileep Figueroa Glucose [Mass/Vol] 142 mg/dL Critically high 74-106 [facility] Comment on above: Performed By: #### P OCGLUC #### [facility] [address] [address] [address] Dileep Figueroa PROF 14(COMP METB)on 022 Albumin [Mass/Vol] 4.2 g/dL Normal 3.4-5.0 [facility] Comment on above: Performed By: #### D ATA1C #### [facility] [address] [address] [address] Dileep Figueroa Albumin/Globulin [Mass ratio] 1.2 {ratio} Normal [facility] Comment on above: Performed By: #### D ATA1C #### [facility] [address] [address] [address] Dileep Figueroa ALP [Catalytic activity/Vol] 51 U/L Normal 46-116 [facility] Comment on above: Performed By: #### D ATA1C #### [facility] [address] [address] [address] Dileep Figueroa ALT [Catalytic activity/Vol] 30 U/L Normal 16-63 [facility] Comment on above: Performed By: #### D ATA1C #### [facility] [address] [address] [address] Dileep Figueroa Anion gap [Moles/Vol] 9.2 mmol/L Normal [facility] Comment on above: Performed By: #### D ATA1C #### [facility] [address] [address] [address] Dileep Figueroa AST [Catalytic activity/Vol] 9 U/L Critically low 15-37 [facility] Comment on above: Performed By: #### D ATA1C #### [facility] [address] [address] [address] Dileep Figueroa Bilirubin [Mass/Vol] 0.4 mg/dL Normal 0.2-1.0 [facility] Comment on above: Performed By: #### D ATA1C #### [facility] [address] [address] [address] Dileep Figueroa Calcium [Mass/Vol] 9.2 mg/dL Normal 8.5-10.1 [facility] Comment on above: Performed By: #### D ATA1C #### [facility] [address] [address] [address] Dileep Figueroa Chloride [Moles/Vol] 102 mmol/L Normal 98-107 [facility] Comment on above: Performed By: #### D ATA1C #### [facility] [address] [address] [address] Dileep Figueroa CO2 [Moles/Vol] 29.4 mmol/L Normal 21.0-32.0 [facility] Comment on above: Performed By: #### D ATA1C #### [facility] [address] [address] [address] Dileep Figueroa Creatinine [Mass/Vol] 0.88 mg/dL Normal 0.70-1.30 [facility] Comment on above: Performed By: #### D ATA1C #### [facility] [address] [address] [address] Dileep Figueroa EGFR-AF GEORGIAN >60 Normal >=60 [facility] Comment on above: Performed By: #### D ATA1C #### [facility] [address] [address] [address] Dileep Figueroa EGFR-NON AF GEORGIAN >60 Normal >=60 [facility] Comment on above: Performed By: #### D ATA1C #### [facility] [address] [address] [address] Dileep Figueroa Globulin (S) [Mass/Vol] 3.4 g/dL Normal [facility] Comment on above: Performed By: #### D ATA1C #### [facility] [address] [address] [address] Dileep Figueroa Glucose [Mass/Vol] 215 mg/dL Critically high 74-106 [facility] Comment on above: Performed By: #### D ATA1C #### [facility] [address] [address] [address] Dileep Figueroa Potassium [Moles/Vol] 3.6 mmol/L Normal 3.5-5.1 [facility] Comment on above: Performed By: #### D ATA1C #### [facility] [address] [address] [address] Dileep Figueroa Protein [Mass/Vol] 7.6 g/dL Normal 6.4-8.2 [facility] Comment on above: Performed By: #### D ATA1C #### [facility] [address] [place] [address] Dr. Dileep Figueroa Sodium [Moles/Vol] 137 mmol/L Normal 136-145 [facility] Comment on above: Performed By: #### D ATA1C #### [facility] [address] [place] [address] Dr. Dileep Figueroa Urea nitrogen [Mass/Vol] 22.0 mg/dL Critically high 7.0-18.0 [facility] Comment on above: Performed By: #### D ATA1C #### [facility] [address] [place] [address] Dr. Dileep Figueroa Urea nitrogen/Creatinine [Mass ratio] 25.0 mg/mg Normal [facility] Comment on above: Performed By: #### D ATA1C #### [facility] [address] [place] [address] Dr. Dileep Figueroa PROTIMEon 08-03-2022 INR Coag (PPP) [Relative time] 1.00 {INR} Normal [facility] Comment on above: Performed By: #### P TT, PT #### [facility] [address] [place] [address] Dr. Dileep Figueroa INR GUIDELINES SEE BELOW Normal [facility] Comment on above: Result Comment: DEVIN RED INR: 2.0 - 3.0 CONDITIONS NOT LISTED BELOW 2.5 - 3.5 FOR PROSTHETIC HEART VALVE REPLACEMENT 2.5 - 3.5 RECURRENT THROMBOSIS Performed By: #### P TT, PT #### [facility] [address] [place] [address] Dr. Dileep Figueroa PT Coag (PPP) [Time] 10.8 s Normal 9.0-11.6 [facility] Comment on above: Performed By: #### P TT, PT #### [facility] [address] [place] [address] Dr. Dileep Figueroa PTTon 08-03-2022 aPTT Coag (Bld) [Time] 25.8 s Normal 22.3-36.2 [facility] Comment on above: Performed By: #### P TT, PT #### [facility] [address] [place] [address] Dr. Dileep Figueroa XR CHEST 1 Von 08-03-2022 XR CHEST 1 V EXAMINATION: XR CHEST 1 V HISTORY: Cerebrovascular accident COMPARISON: No relevant comparison available. TECHNIQUE: AP portable erect FINDINGS: LUNGS: No significant pulmonary parenchymal abnormalities. VASCULATURE: No increased pulmonary vasculature. PLEURA: No pneumothorax, effusion, or pleural thickening. CARDIAC: No cardiomegaly or cardiac silhouette abnormality. MEDIASTINUM: No visible mass or adenopathy. BONES: No fracture or visible bone lesion. OTHER: Negative. IMPRESSION: No acute disease. Electronically authenticated by: JOSE LUIS LÓPEZ Date: 2022-08-03 10:01 Normal [facility] MICROALBUMIN URINEon 022 Albumin, Urine 27.7 ug/mL Normal Not Estab. [facility] Comment on above: Performed By: #### D ATA1C #### [facility] [address] [place] [address] Dr. Dileep Figueroa CBC AUTO DIFFon 07-14-2022 BASO # 0.1 103/ul Normal 0.0-0.1 [facility] Comment on above: Performed By: #### C BC #### [facility] [address] [place] [address] Dr. Dileep Figueroa Basophils/100 WBC (Bld) 1.7 % Normal 0.2-2.0 [facility] Comment on above: Performed By: #### C BC #### [facility] [address] [place] [address] Dr. Dileep Figueroa EO # 0.5 103/ul Normal 0.0-0.7 [facility] Comment on above: Performed By: #### C BC #### [facility] [address] [place] [address] Dr. Dileep Figueroa Eosinophils/100 WBC (Bld) 7.9 % Critically high 0.9-7.0 [facility] Comment on above: Performed By: #### C BC #### [facility] [address] [place] [address] Dr. Dileep Figueroa Erythrocyte distribution width (RBC) [Ratio] 13.3 % Normal 11.0-15.0 [facility] Comment on above: Performed By: #### C BC #### [facility] [address] [place] [address] Dr. Dileep Figueroa Hematocrit (Bld) [Volume fraction] 46.4 % Normal 42.0-54.0 [facility] Comment on above: Performed By: #### C BC #### [facility] [address] [place] [address] Dr. Dileep Figueroa Hemoglobin (Bld) [Mass/Vol] 16.0 g/dL Normal 14.0-18.0 [facility] Comment on above: Performed By: #### C BC #### [facility] [address] [place] [address] Dr. Dileep Figueroa IG # 0.03 10e3/ul Normal 0.00-0.03 [facility] Comment on above: Performed By: #### C BC #### [facility] [address] [place] [address] Dr. Dileep Figueroa IG % 0.5 % Normal 0.0-0.5 [facility] Comment on above: Performed By: #### C BC #### [facility] [address] [place] [address] Dr. Dileep Figueroa LYMPH # 1.8 103/ul Normal 1.2-3.8 [facility] Comment on above: Performed By: #### C BC #### [facility] [address] [place] [address] Dr. Dileep Figueroa Lymphocytes/100 WBC (Bld) 27.5 % Normal 20.5-60.0 [facility] Comment on above: Performed By: #### C BC #### [facility] [address] [place] [address] Dr. Dileep Figueroa MANUAL DIFF REQ NO Normal [facility] Comment on above: Performed By: #### C BC #### [facility] [address] [place] [address] Dr. Dileep Figueroa MCH (RBC) [Entitic mass] 30.4 pg Normal 25.9-34.0 [facility] Comment on above: Performed By: #### C BC #### [facility] [address] [place] [address] Dr. Dileep Figueroa MCHC (RBC) [Mass/Vol] 34.5 g/dL Normal 29.9-35.2 [facility] Comment on above: Performed By: #### C BC #### [facility] [address] [place] [address] Dr. Dileep Figueroa MCV (RBC) [Entitic vol] 88.2 fL Normal 80.0-94.0 [facility] Comment on above: Performed By: #### C BC #### [facility] [address] [place] [address] Dr. Dileep Figueroa MONO # 0.7 103/ul Normal 0.3-0.8 [facility] Comment on above: Performed By: #### C BC #### [facility] [address] [place] [address] Dr. Dileep Figueroa Monocytes/100 WBC (Bld) 10.5 % Normal 1.7-12.0 [facility] Comment on above: Performed By: #### C BC #### [facility] [address] [place] [address] Dr. Dileep Figueroa NEUT # 3.4 103/ul Normal 1.4-6.5 [facility] Comment on above: Performed By: #### C BC #### [facility] [address] [place] [address] Dr. Dileep Figueroa Neutrophils/100 WBC (Bld) 51.9 % Normal 43.0-75.0 [facility] Comment on above: Performed By: #### C BC #### [facility] [address] [place] [address] Dr. Dileep Figueroa Platelet mean volume (Bld) [Entitic vol] 9.7 fL Normal 9.5-13.5 [facility] Comment on above: Performed By: #### C BC #### [facility] [address] [place] [address] Dr. Dileep Figueroa PLT 207 103/ul Normal 150-450 [facility] Comment on above: Performed By: #### C BC #### [facility] [address] [place] [address] Dr. Dileep Figueroa RBC 5.26 106/ul Normal 4.70-6.10 [facility] Comment on above: Performed By: #### C BC #### [facility] [address] [address] [address] Dileep Figueroa WBC 6.6 103/ul Normal 4.0-11.0 [facility] Comment on above: Performed By: #### C BC #### [facility] [address] [place] [address] Dr. Dileep Figueroa GLYCOHEMOGLOBIN A1Con 2021 ADA RECOMMENDATION SEE BELOW Normal [facility] Comment on above: Result Comment: ADA RECOMMENDED LIMIT 4.0 - 6.0 ADA THERAPEUTIC TARGET < 7.0 ACTION SUGGESTED > 7.0 Performed By: #### P SASC #### [facility] [address] [place] [address] Dr. Dileep Figueroa Glucose [Mass/Vol] 154 mg/dL Normal [facility] Comment on above: Performed By: #### P SASC #### [facility] [address] [place] [address] Dr. Dileep Figueroa HbA1c (Bld) [Mass fraction] 7.0 % Critically high 4.5-6.2 [facility] Comment on above: Performed By: #### P SASC #### [facility] [address] [place] [address] Dr. Dileep Figueroa LIPID PROFILEon 07-14-2022 CHOL-HDL RATIO NORM SEE BELOW Normal [facility] Comment on above: Result Comment: 3.3 - 4.4 LOW RISK 4.4 - 7.1 AVERAGE RISK 7.1 - 11.0 MODERATE RISK >11.0 HIGH RISK Performed By: #### D ATA1C #### [facility] [address] [place] [address] Dr. Dileep Figueroa Cholesterol [Mass/Vol] 183 mg/dL Normal <=200 [facility] Comment on above: Performed By: #### D ATA1C #### [facility] [address] [place] [address] Dr. Dileep Figueroa Cholesterol in HDL [Mass/Vol] 38 mg/dL Critically low 40-60 [facility] Comment on above: Performed By: #### D ATA1C #### [facility] [address] [address] [address] Dileep Figueroa Cholesterol in LDL [Mass/Vol] 107.4 mg/dL Normal [facility] Comment on above: Performed By: #### D ATA1C #### [facility] [address] [address] [address] Dileep Figueroa Cholesterol.total/Ayah sterol in HDL [Mass ratio] 4.8 {ratio} Normal [facility] Comment on above: Performed By: #### D ATA1C #### [facility] [address] [address] [address] Dileep Figueroa HDL NORMAL > or = 60 mg/dl - LOW CARDIOVASCULAR RISK <40 mg/dl - HIGH CARDIOVASCULAR RISK Normal [facility] Comment on above: Performed By: #### D ATA1C #### [facility] [address] [place] [address] Dr. Dileep Figueroa LDL CALC NORMAL SEE BELOW Normal [facility] Comment on above: Result Comment: <100 mg/dl OPTIMAL 100 - 129 mg/dl NEAR OR ABOVE OPTIMAL 130 - 159 mg/dl BORDERLINE HIGH 160 - 189 mg/dl HIGH >190 mg/dl VERY HIGH Performed By: #### D ATA1C #### [facility] [address] [place] [address] Dr. Dileep Figueroa Triglyceride [Mass/Vol] 188 mg/dL Critically high <=150 [facility] Comment on above: Performed By: #### D ATA1C #### [facility] [address] [place] [address] Dr. Dileep Figueroa VLDL CALC 37.6 mg/dL Normal [facility] Comment on above: Performed By: #### D ATA1C #### [facility] [address] [place] [address] Dr. Dileep Figueroa PROF CHEM 8 (BAS METB)on Anion gap [Moles/Vol] 13.4 mmol/L Normal [facility] Comment on above: Performed By: #### A ST, BMP, LIPID #### [facility] [address] [address] [address] Dileep Figueroa Calcium [Mass/Vol] 9.0 mg/dL Normal 8.5-10.1 [facility] Comment on above: Performed By: #### A ST, BMP, LIPID #### [facility] [address] [address] [address] Dileep Figueroa Chloride [Moles/Vol] 103 mmol/L Normal 98-107 [facility] Comment on above: Performed By: #### A ST, BMP, LIPID #### [facility] [address] [address] [address] Dileep Figueroa CO2 [Moles/Vol] 25.2 mmol/L Normal 21.0-32.0 [facility] Comment on above: Performed By: #### A ST, BMP, LIPID #### [facility] [address] [place] [address] Dr. Dileep Figueroa Creatinine [Mass/Vol] 0.87 mg/dL Normal 0.70-1.30 [facility] Comment on above: Performed By: #### A ST, BMP, LIPID #### [facility] [address] [address] [address] Dileep Figueroa EGFR-AF GEORGIAN >60 Normal >=60 [facility] Comment on above: Performed By: #### A ST, BMP, LIPID #### [facility] [address] [place] [address] Dr. Dileep Figueroa EGFR-NON AF GEORGIAN >60 Normal >=60 [facility] Comment on above: Performed By: #### A ST, BMP, LIPID #### [facility] [address] [address] [address] Dileep Figueroa Glucose [Mass/Vol] 171 mg/dL Critically high 74-106 [facility] Comment on above: Performed By: #### A ST, BMP, LIPID #### [facility] [address] [place] [address] Dr. Dileep Figueroa Potassium [Moles/Vol] 3.6 mmol/L Normal 3.5-5.1 [facility] Comment on above: Performed By: #### A ST, BMP, LIPID #### [facility] [address] [address] [address] Dileep Figueroa Sodium [Moles/Vol] 138 mmol/L Normal 136-145 [facility] Comment on above: Performed By: #### A ST, BMP, LIPID #### [facility] [address] [address] [address] Dileep Figueroa Urea nitrogen [Mass/Vol] 18.0 mg/dL Normal 7.0-18.0 [facility] Comment on above: Performed By: #### A ST, BMP, LIPID #### [facility] [address] [address] [address] Dileep Figueroa Urea nitrogen/Creatinine [Mass ratio] 20.7 mg/mg Normal [facility] Comment on above: Performed By: #### A ST, BMP, LIPID #### [facility] [address] [address] [address] Dileep Figueroa SGOTon 07-14-2022 AST [Catalytic activity/Vol] 10 U/L Critically low 15-37 [facility] Comment on above: Performed By: #### D ATA1C #### [facility] [address] [address] [address] Dileep Figueroa Vital Signs Date Time Vital Sign Value Performing Clinician Facility 03-03-2024 14:59-0400 Body height 161.29 cm DO Robert Ball Work Phone: [facility] 03-03-2024 14:59-0400 Body mass index (BMI) [Ratio] 35.8 kg/m2 DO Robert Ball Work Phone: [facility] 03-03-2024 14:59-0400 Body weight 93.15 kg DO Robert Ball Work Phone: [facility] 03-03-2024 14:59-0400 Diastolic blood pressure 81 mm[Hg] DO Robert Ball Work Phone: [facility] 03-03-2024 14:59-0400 Heart rate 59 /min DO Robert Ball Work Phone: [facility] 03-03-2024 14:59-0400 Respiratory rate 12 /min DO Robert Ball Work Phone: [facility] 03-03-2024 14:59-0400 Systolic blood pressure 128 mm[Hg] DO Robert Ball Work Phone: [facility] 08-31-2023 08:45-0400 Body height 161.29 cm Robert Ball Other [facility] [employer] Other 08-31-2023 08:45-0400 Body mass index (BMI) [Ratio] 35.15 kg/m2 Robert Ball Other [place] [employer] Other 08-31-2023 08:45-0400 Body weight 91.45 kg Robert Ball Other [place] [employer] Other 08-31-2023 08:45-0400 Diastolic blood pressure 75 mm[Hg] Robert Ball Other [place] [employer] Other 08-31-2023 08:45-0400 Respiratory rate 16 /min Robert Ball Other [employer] Other 08-31-2023 08:45-0400 Systolic blood pressure 149 mm[Hg] Robert Ball Other [employer] Other 08-21-2023 10:45-0400 Body height 161.29 cm Robert Ball Other [employer] Other 08-21-2023 10:45-0400 Body mass index (BMI) [Ratio] 34.38 kg/m2 Robert Ball Other [employer] Other 08-21-2023 10:45-0400 Body weight 89.45 kg Robert Ball Other [employer] Other 08-21-2023 10:45-0400 Diastolic blood pressure 81 mm[Hg] Robert Ball Other [employer] Other 08-21-2023 10:45-0400 Respiratory rate 12 /min Robert Ball Other [employer] Other 08-21-2023 10:45-0400 Systolic blood pressure 149 mm[Hg] Robert Ball Other [employer] Other 07-11-2023 14:30-0400 Body height 161.29 cm [employer] Other [employer] Other 07-11-2023 14:30-0400 Body mass index (BMI) [Ratio] 34.87 kg/m2 [employer] Other [employer] Other 07-11-2023 14:30-0400 Body weight 90.72 kg [employer] Other [employer] Other 06-15-2023 14:30-0400 Body height 161.29 cm Robert Ball Other [employer] Other 06-15-2023 14:30-0400 Body mass index (BMI) [Ratio] 35.29 kg/m2 Robert Ball Other [employer] Other 06-15-2023 14:30-0400 Body weight 91.81 kg Robert Ball Other [employer] Other 06-15-2023 14:30-0400 Diastolic blood pressure 88 mm[Hg] Robert Ball Other [employer] Other 06-15-2023 14:30-0400 Respiratory rate 12 /min Robert Ball Other [employer] Other 06-15-2023 14:30-0400 Systolic blood pressure 139 mm[Hg] Robert Ball Other [employer] Other 01-05-2023 14:30-0500 Body height 161.29 cm Robert Ball Other [employer] Other 01-05-2023 14:30-0500 Body mass index (BMI) [Ratio] 36.09 kg/m2 Robert Ball Other [employer] Other 01-05-2023 14:30-0500 Body weight 93.9 kg Robert Ball Other [employer] Other 01-05-2023 14:30-0500 Diastolic blood pressure 84 mm[Hg] Robert Ball Other [employer] Other 01-05-2023 14:30-0500 Systolic blood pressure 160 mm[Hg] Robert Ball Other [employer] Other 01-02-2023 14:40-0500 Body height 167.64 cm Sonido Calvert Other [employer] Other 01-02-2023 14:40-0500 Body mass index (BMI) [Ratio] 32.92 kg/m2 Sonido Calvert Other [employer] Other 01-02-2023 14:40-0500 Body weight 92.53 kg Sonido Calvert Other [employer] Other 01-02-2023 14:40-0500 Diastolic blood pressure 84 mm[Hg] Sonido Calvert Other [employer] Other 01-02-2023 14:40-0500 Systolic blood pressure 154 mm[Hg] Sonido Calvert Other [facility] [employer] Other 10-03-2022 08:00-0500 Inhaled oxygen flow rate 1 L/min DO Robert Ball Work Phone: [facility] 10-03-2022 07:55-0500 Body temperature 97.7 [degF] DO Robert Ball Work Phone: [facility] 10-03-2022 07:55-0500 Diastolic blood pressure 76 mm[Hg] DO Robert Ball Work Phone: [facility] 10-03-2022 07:55-0500 Heart rate 69 /min DO Robert Ball Work Phone: [facility] 10-03-2022 07:55-0500 Respiratory rate 16 /min DO Robert Ball Work Phone: [facility] 10-03-2022 07:55-0500 SaO2% (BldA) [Mass fraction] 95 % DO Robert Ball Work Phone: [facility] 10-03-2022 07:55-0500 Systolic blood pressure 146 mm[Hg] DO Robert Ball Work Phone: [facility] 10-03-2022 06:00-0500 Body weight 93 kg DO Robert Ball Work Phone: [facility] 10-02-2022 11:56-0500 Body height 170.18 cm DO Robert Ball Work Phone: [facility] 10-02-2022 11:56-0500 Body mass index (BMI) [Ratio] 31.8 kg/m2 DO Robert Ball Work Phone: [facility] 09-26-2022 12:00-0500 Diastolic blood pressure 84 mm[Hg] Robert E Ball Work Phone: [facility] DO Work Phone: 09-26-2022 12:00-0500 Systolic blood pressure 128 mm[Hg] Robert E Ball Work Phone: [facility] DO Work Phone: 09-26-2022 11:58-0500 Body height 170.18 cm Robert E Ball Work Phone: [facility] DO Work Phone: 09-26-2022 11:58-0500 Body mass index (BMI) [Ratio] 31.79 kg/m2 Robert E Ball Work Phone: [facility] DO Work Phone: 09-26-2022 11:58-0500 Body surface area Derived from formula 2.03 m2 Robert Kamara Ball Work Phone: [facility] DO Work Phone: 09-26-2022 11:58-0500 Body weight 92.08 kg Robert E Ball Work Phone: [facility] DO Work Phone: 09-26-2022 11:58-0500 Diastolic blood pressure 86 mm[Hg] Robert E Ball Work Phone: [facility] DO Work Phone: 09-26-2022 11:58-0500 Heart rate 55 /min Robert E Ball Work Phone: [facility] DO Work Phone: 09-26-2022 11:58-0500 Systolic blood pressure 132 mm[Hg] Robert E Ball Work Phone: [facility] DO Work Phone: 09-12-2022 14:20-0500 Body height 167.64 cm Sonido Calvert Other [place] [employer] Other 09-12-2022 14:20-0500 Body mass index (BMI) [Ratio] 31.47 kg/m2 Sonido Calvert Other [employer] Other 09-12-2022 14:20-0500 Body weight 88.45 kg Sonido Calvert Other [employer] Other Encounters Encounter Date Encounter Type Care Provider Facility Start: 03-27-2024 End: 03-27-2024 Patient encounter procedure DO Robert Culver Work Phone: [facility] [place] Work Phone: Start: 03-27-2024 End: 03-27-2024 ambulatory DO Robert Culver Work Phone: [facility] Work Phone: Start: 03-03-2024 End: 03-03-2024 Patient encounter procedure DO Robert Culver Work Phone: [facility] Work Phone: Start: 02-21-2024 Non-patient / Non-visit DO William Culver Work Phone: [facility] Work Phone: Start: 12-06-2023 End: 12-06-2023 ambulatory Robert Culver Other [employer] Other Start: 12-06-2023 Telephone encounter Robert Culver [facility] Start: 11-13-2023 End: 11-13-2023 ambulatory Robert Culver Other [employer] Other Start: 11-13-2023 Telephone encounter Robert Culver [facility] Start: 11-08-2023 End: 11-08-2023 ambulatory Robert Culver Other [employer] Other Start: 11-08-2023 Telephone encounter Robert Culver [facility] Start: 10-10-2023 End: 10-10-2023 ambulatory Ben Murillo II Other [employer] Other Start: 10-10-2023 Office outpatient vi sit 25 minutes Ben Williams II [facility] Start: 10-08-2023 End: 10-08-2023 ambulatory Robert Ball Other [employer] Other Start: 10-08-2023 Telephone encounter Robert Ball [facility] Start: 10-05-2023 End: 10-05-2023 ambulatory Robert Ball Other [employer] Other Start: 10-05-2023 Telephone encounter Robert Ball [facility] Start: 08-31-2023 End: 08-31-2023 ambulatory Robert Ball Other [employer] Other Start: 08-31-2023 Transitional care jackeline lacey srvc 14 day discharge Robert Ball [facility] Start: 08-27-2023 End: 08-27-2023 ambulatory Robert Ball Other [employer] Other Start: 08-27-2023 Telephone encounter Robert Ball [facility] Start: 08-21-2023 End: 08-21-2023 ambulatory Robert Ball Other [employer] Other Start: 08-21-2023 Office outpatient vi sit 25 minutes Robert Ball [facility] Start: 07-11-2023 End: 07-11-2023 Patient encounter procedure DO Robert Ball Work Phone: [facility] Start: 07-11-2023 End: 07-11-2023 ambulatory DO Robert Ball Work Phone: [facility] Work Phone: Start: 07-11-2023 Office outpatient ne w 45 minutes Ben Chidi II [facility] Start: 06-22-2023 End: 06-22-2023 ambulatory Robert Ball Other [employer] Other Start: 06-22-2023 Telephone encounter Robert Culver [facility] Start: 06-15-2023 End: 06-15-2023 ambulatory Robert Palomo Other [employer] Other Start: 06-15-2023 Patient encounter procedure Robert Culver [facility] Start: 04-03-2023 End: 04-03-2023 ambulatory Robert Palomo Other [employer] Other Start: 04-03-2023 Telephone encounter Robert Culver [facility] Start: 01-17-2023 End: 01-18-[address] ROBERT CULVER Facility:[facility] Start: 01-05-2023 End: 01-05-2023 ambulatory Robert Palomo Other [place] [employer] Other Start: 01-05-2023 Office outpatient vi sit 25 minutes Robert Culver [facility] Start: 01-02-2023 End: 01-02-2023 ambulatory Sonido Calvert Other [employer] Other Start: 01-02-2023 Postop follow up vis it related to original px Sonido Calvert [facility] Start: 10-02-2022 End: 10-03-2022 Admission to same day surgery center DO Robert Culver Work Phone: [facility] [place] Start: 10-02-2022 End: 10-03-2022 ambulatory DO Robert Palomo Work Phone: [facility] Work Phone: Start: 09-28-2022 End: 09-28-2022 Patient encounter procedure DO Robert Ball Work Phone: [facility]Pre[facility] Start: 09-27-2022 End: 09-28-[address] ROBERT CULVER Facility:[facility] Start: 09-26-2022 Office consultation new/estab patient 60 min Robert Culver Work Phone: [facility] DO Work Phone: Start: 09-26-[address] Kiko Jacobs Facility: Start: 09-20-2022 End: 09-20-2022 ambulatory DO Robert Ball Work Phone: [facility] Work Phone: Start: 09-20-2022 End: 09-20-2022 Patient encounter procedure DO Robert Ball Work Phone: [facility] Start: 09-12-2022 End: 09-12-2022 Patient encounter procedure DO Robert Ball Work Phone: [facility] [place] Start: 09-12-2022 End: 09-12-2022 ambulatory DO Robert Ball Work Phone: [facility] Work Phone: Start: 09-12-2022 Office outpatient ne w 60 minutes Sonido Calvert [facility] Start: 08-23-2022 Chart abstracting Unk (Historical) N eurology Start: 08-11-2022 End: 08-12-[address] ROBERT CULVER Facility:[facility] Start: 08-08-2022 End: 08-09-[address] ROBERT CULVER Facility:[facility] Start: 08-03-2022 End: 08-04-[address] RICARDO HERRING Facility:[facility] Start: 07-14-2022 End: 07-15-[address] ROBERT CULVER Facility:[facility] Patient encounter status Cheryl Kamara Ball Work Phone: [facility] DO Work Phone: Procedures Date Procedure Procedure Detail Performing Clinician Start: 07-11-2023 Pelvis X-ray DO Cheryl n Ball Work Phone: Start: 07-11-2023 X-ray of both knees DO Robert Ball Work Phone: Start: 10-02-2022 Excision of lumbar intervertebral disc DO Robert Ball Work Phone: Start: 10-02-2022 X-ray of lumbar spin e, single view DO Robert Ball Work Phone: Start: 09-12-2022 X-ray of cervical spine DO Robert Culver Work Phone: Start: 09-12-2022 X-ray of lumbar spin e, six views including bending views DO Robert Culver Work Phone: Start: 07-14-[address] FRANKEL [facility] [employer] Comment on above: Performed By: #### P [facility] #### [facility] [address] [place] [address] Dr. Dileep Figueroa Extraction of wisdom tooth Robert Culver Work Phone: Operative procedure on knee Robert Culver Work Phone: SARS Antigen (LFIA) DO Aidan Culver Work Phone: Tonsillectomy oRbert Kamara Bal l Work Phone: NEGATED: Highlighted row has not occurred! Colonoscopy Robert Culver Work Phone: Plan of Treatment Date Care Activity Detail Author Start: 03-27-2024 MRSA Culture MRSA Culture [facility] Start: 10-03-2022 [facility] Start: 10-02-2022 Physical therapy procedure [facility] Start: 10-02-2022 Referral to occupati onal therapist [facility] Cotinine [Mass/volum e] in Serum or Plasma [facility] Methicillin resistan t Staphylococcus aureus [Presence] in Unspecified specimen by Organism specific culture [facility] Nicotine [Mass/volum e] in Serum or Plasma [facility] Patient referral [facility] Work Phone: Immunizations Immunization Date Immunization Notes Care Provider Fa amanda 06-22-2022 Prevnar 20 0.5 ML Intramuscular Suspension Prefilled Syringe Robert Culver Work Phone: [facility] 02-10-2022 Comirnaty 30 MCG/0.3 ML Intramuscular Suspension Robert Culver Work Phone: [facility] 02-10-2022 COVID-19 mRNA, Comir vy (Pfizer) DO Robert Culver Work Phone: [facility] 10-18-2021 COVID-19 mRNA, Jonh mcclellan (Pfizer) DO Robert Culver Work Phone: [facility] Payers Date Payer Category Payer Self-pay 2022 Medicare MEDICARE MEDICAR E A AND B [id number] 2022-Present [phone] [place] [address] Medicare [id number] 1957 Medicare [id number] 1957 Private Health Insurance CLI [id number] 1957 Self-pay [id number] 1955 Unknown [id number] 1957 Unknown [id number] 1957 Unknown [id number] .[id number] 1957 Unknown [id number] 1957 Unknown [id number] 1957 Unknown [id number] Unknown [id number] Unknown Unknown [id number] Unknown [id number] Unknown [id number] Social History Date Type Detail Facility Tobacco smoking status FLIS Tobacco smoking consumption unknown [facility] Start: 1955 Sex Assigned At Not on file [facility] Start: 1955 Sex Assigned At Male [facility] Sex Assigned At Sex Assigned At [employer] Other Start: 09-20-2022 End: 10-02-2022 Tobacco smoking status NHIS Never smoked tobacco (finding) [facility] Caffeine use Caffeine use -[facility] DO Work Phone: Comment on above: a thermos daily of c offee; couple beers daily; Goals Date Patient Goal Desired Activity /State Functional Status Date Assessment Result Facility 10-03-2022 Functional status Patient at Baseline [facility] Work Phone: Mental Status Date Assessment Result Facility 10-03-2022 Cognitive function Cognitive Sta tus Patient at Baseline [facility] Work Phone: Clinical Notes 08-25-2022 to 12-06-2023 Note Date & Type Note Facility 12-06-2023 Evaluation note Encounter Date Diagnosis Assessment Notes Nov, Type 2 diabetes mellitus with hyperglycemia , without long-term current use of insulin (ICD-10 - E11.65) [employer] Other 01-16-2024 Evaluation note* Encounter Date Diagnosis Assessment Notes Treatment Notes Treatment Clinical Notes Oct, Type 2 diabetes mellitus with hyperglycemia, without long-term current use of insulin (ICD-10 - E11.65) [employer] Other 01-11-2024 Evaluation note* Encounter Date Diagnosis Assessment Notes Treatment Notes Treatment Clinical Notes Oct, Primary hypertension (ICD-10 - I10) Oct, Type 2 diabetes mellitus with hyperglycemia, without long-term current use of insulin (ICD-10 - E11.65) [employer] Other 12-13-2023 Evaluation note* Encounter Date Diagnosis Assessment Notes Treatment Notes Treatment Clinical Notes Sep, Primary osteoarthritis of right knee (ICD-10 - M17.11) Sep, Primary osteoarthritis of left knee (ICD-10 - M17.12) Sep, Other 1. We had a rafa g discussion with the patient today concerning their right and left knee osteoarthritis. The radiographs do show osteoarthritis of the knees. At this time the patient would like to avoid surgical intervention. We did discuss the risk and benefits of surgical versus nonoperative management. The patient would like to proceed with nonoperative management. We discussed that our options include injections, physical therapy, and the consistent use of anti-inflammatories. All 3 of these options, including their risks and benefits, were discussed at length with the patient. 2. Tylenol: Discussed taking Tylenol (acetaminophen). Recommended adjusting their dosing to 1000mg by mouth up to 3 times a day. 3. NSAIDs: Recommend continuing Voltaren gel 4-5 times a day 4. Physical therapy: Discussed formal physical therapy and home regimen. Patient preferred no PT at this time. 5. Injections: Discussed injections as a treatment option. Patient failed his steroid injection I do not feel a new steroid injection is worthwhile. I think in the future if he wanted to consider viscosupplementation that could be an option. 6. Intracerebral hemorrhage-need to see what comes of the workup of this from his ER visit. 7. Wdx-oakucfs-vibkvmhlj diabetes-his most recent A1c is 8.0. He understands he needs to work with his primary care provider to get that less than 7.5 in order to proceed with the surgery. 8. Follow-up: Work and leave the ball in his court and have him give us a call if you would like to consider proceeding with radiofrequency nerve ablation with Dr. Jackman or if he has gotten his A1c less than 7.5. If he has then we can certainly get the preoperative screening labs and start the process for a left total knee arthroplasty. We will have to discuss whether or not he is a good candidate for a same-day discharge or if he should be an inpatient. [facility] Other 12-11-2023 Evaluation note* Encounter Date Diagnosis Assessment Notes Treatment Notes Treatment Clinical Notes Sep, Type 2 diabetes mellitus with hyperglycemia, without long-term current use of insulin (ICD-10 - E11.65) [facility] Other 12-08-2023 Evaluation note* Encounter Date Diagnosis Assessment Notes Treatment Notes Treatment Clinical Notes Sep, Nontraumatic subcortical hemorrhage of cerebral hemisphere, unspecified laterality (ICD-10 - I61.0) [facility] Other 11-03-2023 Evaluation note* Encounter Date Diagnosis Assessment Notes Treatment Notes Treatment Clinical Notes Aug, 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 ER for increased headaches or focal neurologic deficits Continue ASA Aug, Type 2 diabetes mellitus with hyperglycemia, without long-term current use of insulin (ICD-10 - E11.65) This patient is following a comprehensive diabetic treatment plan. They are checking their feet daily for calluses and nonhealing ulcers. They are being seen for yearly dilated eye examinations. Goals: SBP less than 130, LDL less than 100, FBS less than 140, A1C less than 7%. They are checking their BS daily, will which are reviewed at the office visit. Continue regular routine monitoring of A1C,] Microalbumin, Dilated eye exam and Foot exam Check BS qod and update office in 2 wks Aug, Primary hypertension (ICD-10 - I10) This patient is instructed to consume a healthy, low-fat, low-salt diet. They are also encouraged to continue exercise to achieve/maintain a normal BMI. Aug, Elevated cholesterol (ICD-10 - E78.00) Instructed on diet and exercise.Discussed the beneficial effects of lowering cholesterol in reducing the risk for cerebrovascular and cardiovascular disease. Intolerant to statin therapy Aug, Cerebral atherosclerosis (ICD-10 - I67.2) Continue secondary prevention measures. - BP - BS - CHol - ASA therapy Monitor for new focal neurologic deficits, reviewed s/s stroke. Aug, Morbid (severe) obesity due to excess calories (ICD-10 - E66.01) This patient has been instructed on a low-fat, high-fiber diet. They are instructed to reduce calories, portion sizes and snacks. It is recommended that they exercise for 30 minutes, 3-5 times weekly. Aug, Body mass index [BMI ] 35.0-35.9, adult (ICD-10 - Z68.35) [facility] Other 10-24-2023 Evaluation note* Encounter Date Diagnosis Assessment Notes Treatment Notes Treatment Clinical Notes Jul, Cervicogenic headache (ICD-10 - G44.86) Atypical symptoms of headache w/ excessive sleepiness. Suggest urgent CT brain. Heat/ice and Tylenol. May prescribe muscle relaxant w/ Tramadol for headache if CT negative Jul, Excessive sleepiness (ICD-10 - G47.10) Unusual symptoms w/ headache. Mild concussion, occurred after headache began and likely unrelated to sleepiness. 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 [facility] No obvious focal neurologic deficits. Jul, Concussion without loss of consciousness, initial encounter (ICD-10 - S06.0X0A) Mild concussion, which actually occurred after the headache began. No residule symptoms No N/V Monitor for now Jul, Type 2 diabetes mellitus with hyperglycemia, without long-term current use of insulin (ICD-10 - E11.65) This patient is following a comprehensive diabetic treatment plan. They are checking their feet daily for calluses and nonhealing ulcers. They are being seen for yearly dilated eye examinations. Goals: SBP less than 130, LDL less than 100, FBS less than 140, A1C less than 7%. They are checking their BS daily, will which are reviewed at the office visit. Continue regular routine monitoring of A1C,] Microalbumin, Dilated eye exam and Foot exam Jul, Primary hypertension (ICD-10 - I10) This patient is instructed to consume a healthy, low-fat, low-salt diet. They are also encouraged to continue exercise to achieve/maintain a normal BMI. Slightly elevated today related to cerebral hemorrhage Jul, Polyuria (ICD-10 - R35.89) Check UA r/o acute prostatitis r/o glucosuria [facility] Other 09-13-2023 Evaluation note* Encounter Date Diagnosis Assessment Notes Treatment Notes Treatment Clinical Notes Jun, Bilateral primary osteoarthritis of knee (ICD-10 - M17.0) Jun, Non-insulin dependent type 2 diabetes mellitus (ICD-10 - E11.9) Jun, Other 1. We had a rafa g discussion with the patient today concerning their right and left knee osteoarthritis. The radiographs do show osteoarthritis of the knees. At this time the patient would like to avoid surgical intervention. We did discuss the risk and benefits of surgical versus nonoperative management. The patient would like to proceed with nonoperative management. We discussed that our options include injections, physical therapy, and the consistent use of anti-inflammatories. All 3 of these options, including their risks and benefits, were discussed at length with the patient. 2. Tylenol: Discussed taking Tylenol (acetaminophen). Recommended adjusting their dosing to 1000mg by mouth up to 3 times a day. 3. NSAIDs: Recommended continued eppe-tpc-ierxuvr anti-inflammatories. Also recommended Voltaren gel 4-5 times a day which we prescribed a prescription. 4. Physical therapy: Discussed formal physical therapy and home regimen. Patient preferred no PT at this time. 5. Injections: Discussed injections as a treatment option. I informed the patient that the combination of the medication with their diabetes diagnosis could elevate their blood sugar levels temporarily. If they noticed any elevation of their blood sugar levels over the next several days, I recommended they call their PCP for further blood sugar management guidance. Patient understood and still wished to proceed with the injection. After consent was obtained, the right and left knees were injected with 2cc Kenalog and 8cc bupivicaine using sterile technique. Patient tolerated the injections well. 6. Uncontrolled noninsulin-dependent diabetes-I did explain to the patient that if we move forward with a total knee arthroplasty in the future he would need to have his diabetes well controlled under 7.5. He is going to get in touch with his primary care provider to adjust medications and work on better diabetes control. 7. Follow-up in 3 months to see how he is doing with his knee injections. If patient reports that his A1c is documented less than 7.5 he wants to proceed with a left total knee arthroplasty we can certainly then order the preoperative screening labs at that time [facility] Other 08-25-2023 Evaluation note* Encounter Date Diagnosis Assessment Notes Treatment Notes Treatment Clinical Notes May, Elevated cholesterol (ICD-10 - E78.00) May, Type 2 diabetes mellitus with hyperglycemia, without long-term current use of insulin (ICD-10 - E11.65) [facility] Other 08-18-2023 Evaluation note* Encounter Date Diagnosis Assessment Notes Treatment Notes Treatment Clinical Notes May, Medicare annual wellness visit, initial (ICD-10 - Z00.00) Personalized health advice was given to the beneficiary including a written plan for screenings discussed and provided. Advanced care planning reviewed and/or information given as requested. Additional counseling was provided here today in regards to, [ ]. The above visit was performed by [ ] under direct supervision of [ ]. Document reviewed and amended by provider signed below. May, Cerebral atherosclerosis (ICD-10 - I67.2) Continue secondary prevention measures. No focal neurologic deficits. Education on stroke symptoms and instructed to seek treatment immediately if develop. May, Type 2 diabetes mellitus with hyperglycemia, without long-term current use of insulin (ICD-10 - E11.65) This patient is following a comprehensive diabetic treatment plan. They are checking their feet daily for calluses and nonhealing ulcers. They are being seen for yearly dilated eye examinations. Goals: SBP less than 130, LDL less than 100, FBS less than 140, AC and A1C less than 7%. They are checking their BS daily, will which are reviewed at the office visit. Continue regular routine monitoring of A1C,] Microalbumin, Dilated eye exam and Foot exam May, Primary hypertension (ICD-10 - I10) This patient is instructed to consume a healthy, low-fat, low-salt diet. They are also encouraged to continue exercise to achieve/maintain a normal BMI. May, Elevated cholesterol (ICD-10 - E78.00) Instructed on diet and exercise with continued statin therapy.Discussed the beneficial effects of lowering cholesterol in reducing the risk for cerebrovascular and cardiovascular disease. May, Screening PSA (prostate specific antigen) (ICD-10 - Z12.5) Yearly ELBERT and PSA Symptmons tolerable May, Screening for colon cancer (ICD-10 - Z12.11) Didn't complete his Cologuard, will resend order May, High risk medication use (ICD-10 - Z79.899) Check CBC, ALT [facility] Other 08-18-2023 Evaluation note* Encounter Date Diagnosis Assessment Notes Treatment Notes Treatment Clinical Notes May, Medicare annual wellness visit, initial (ICD-10 - Z00.00) Personalized health advice was given to the beneficiary including a written plan for screenings discussed and provided. Advanced care planning reviewed and/or information given as requested. Additional counseling was provided here today in regards to, [ ]. The above visit was performed by [ ] under direct supervision of [ ]. Document reviewed and amended by provider signed below. May, Cerebral atherosclerosis (ICD-10 - I67.2) Continue secondary prevention measures. No focal neurologic deficits. Education on stroke symptoms and instructed to seek treatment immediately if develop. May, Type 2 diabetes mellitus with hyperglycemia, without long-term current use of insulin (ICD-10 - E11.65) This patient is following a comprehensive diabetic treatment plan. They are checking their feet daily for calluses and nonhealing ulcers. They are being seen for yearly dilated eye examinations. Goals: SBP less than 130, LDL less than 100, FBS less than 140, AC and A1C less than 7%. They are checking their BS daily, will which are reviewed at the office visit. Continue regular routine monitoring of A1C,] Microalbumin, Dilated eye exam and Foot exam May, Primary hypertension (ICD-10 - I10) This patient is instructed to consume a healthy, low-fat, low-salt diet. They are also encouraged to continue exercise to achieve/maintain a normal BMI. May, Elevated cholesterol (ICD-10 - E78.00) Instructed on diet and exercise with continued statin therapy.Discussed the beneficial effects of lowering cholesterol in reducing the risk for cerebrovascular and cardiovascular disease. May, Primary osteoarthritis of knees, bilateral (ICD-10 - M17.0) Quad exercises, ice/heat and Tylenol. Avoid squatting or kneeling. Refer to Orthopedics May, Screening PSA (prostate specific antigen) (ICD-10 - Z12.5) Yearly ELBERT and PSA Symptmons tolerable May, Screening for colon cancer (ICD-10 - Z12.11) Didn't complete his Cologuard, will resend order May, High risk medication use (ICD-10 - Z79.899) Check CBC, ALT [facility] Other 06-06-2023 Evaluation note* Encounter Date Diagnosis Assessment Notes Treatment Notes Treatment Clinical Notes Mar, Type 2 diabetes mellitus with hyperglycemia, without long-term current use of insulin (ICD-10 - E11.65) [facility] Other 03-10-2023 Evaluation note* Encounter Date Diagnosis Assessment Notes Treatment Notes Treatment Clinical Notes Dec, Type 2 diabetes mellitus with hyperglycemia, without long-term current use of insulin (ICD-10 - E11.65) This patient is following a comprehensive diabetic treatment plan. They are checking their feet daily for calluses and nonhealing ulcers. They are being seen for yearly dilated eye examinations. Goals: SBP less than 130, LDL less than 100, FBS less than 140, AC and A1C less than 7%. They are checking their BS daily, will which are reviewed at the office visit. A1C: Dec, Primary hypertension (ICD-10 - I10) This patient is instructed to consume a healthy, low-fat, low-salt diet. They are also encouraged to continue exercise to achieve/maintain a normal BMI. Dec, Elevated cholesterol (ICD-10 - E78.00) Diet and exercise with continued statin therapy. Dec, Cerebral atherosclerosis (ICD-10 - I67.2) Continue secondary prevention: - BP, LDL, A1C should be monitored closely - healthy diet and exerise Dec, Obesity (BMI 35.0-39 .9 without comorbidity) (ICD-10 - E66.9) This patient has been instructed on a low-fat, high-fiber diet. They are instructed to reduce calories, portion sizes and snacks. It is recommended that they exercise for 30 minutes, 3-5 times weekly. Dec, Gastroesophageal reflux disease with esophagitis without hemorrhage (ICD-10 - K21.00) Diet instructions: Smaller portions, avoid eating and laying flat, avoid eating or drinking prior to bedtime. Weight loss. Dec, H/O stroke without residual deficits (ICD-10 - Z86.73) [facility] Other 03-07-2023 Evaluation note* Encounter Date Diagnosis Assessment Notes Treatment Notes Treatment Clinical Notes Dec, Lumbar stenosis with neurogenic claudication (ICD-10 - M48.062) Cale is doing very well, he is very happy with his outcome. His claudicatory symptoms are completely gone. His big complaint now is his knees bilaterally, they give him trouble if standing too long. I offered him a referral to orthopedics Dr. Murillo, he declined at this time. I will see him again on an as-needed basis. [facility] Other 12-06-2022 Progress note Author Sonido Calvert [facility] October 03, 2022 7:52am Note Date/Time October 03, 2022 7 :52am [facility] [address] [place] [address] Neurosurgery Progress Note Signed Patient: Cale Krause MR#: [id number] : 1955 Acct:[id number] Age/Sex: 67 / M Adm Date: 2 Loc: 4 Room: [id number] Type: REG SDC Attending Dr: Sonido Calvert MD Copies to: ~ Date of Service: 10/03/2022 Subjective Subjective HPI: Patient says that he has no pain in his buttocks his legs feel better he is walking around good his pain is manageable Exam Physical Exam Vital Signs: Temp Pulse Resp BP Pulse Ox O2 Del Method O2 Flow Rate 98.0 F 82 16 124/77 95 Nasal Cannula 1 10/03/22 03:15 10/03/22 03:15 10/03/22 03:15 10/03/22 03:15 10/03/22 03:15 10/03/22 03:44 10/03/22 03:44 Narrative: Dressing dry Legs at baseline Alert and oriented sitting in chair Appears to be in no pain conversing normally Objective Lab Results Most Recent Labs: 10/02/22 20:43: POC Glucose 295, POC Glucose Comment Glu2: cleaned meter 10/02/22 17:52: POC Glucose 184 10/02/22 14:30: POC Glucose 173 10/02/22 09:30: PHA Creatinine Clear 89.54, Sodium 135 L, Potassium 3.9, Chloride 97, Carbon Dioxide 24.7, Anion Gap 17.2 H, BUN 18, Creatinine 0.89, EstGFR ( Amer) > 60, Est GFR (Non-Af Amer) > 60, Glucose 219 H, Calcium 9.6 10/02/22 09:29: POC Glucose 210 Assessment/Plan Assessment/Plan (1) Lumbar stenosis with neurogenic claudication: Plan: Postoperative day #1 the patient is ambulatory. His legs appear to be doing much better than he did preoperatively. He has good pain control. Full home-going instructions were given I will follow-up with him in the office in 1 month. Code(s): M48.062 - Spinal stenosis, lumbar region with neurogenic claudication Status: Acute Documented By: Sonido Calvert MD 10/03/22749 Signed By: <Electronically signed by MD Sonido Calvert> 10/03/22751 [facility] Work Phone: [phone]) 669-141211-15-2022 Evaluation note* Encounter Date Diagnosis Assessment Notes Treatment Notes Treatment Clinical Notes Aug, Cervical spinal stenosis (ICD-10 - M48.02) I independently reviewed the cervical MRI which shows moderate stenosis at multiple levels. I also independently reviewed the flexion-extension x-rays of his cervical spine showing no gross instability. The patient had some neck pain but currently has no radicular symptoms. I do not think this is causing any of his lower extremity issues. Aug, Inflammation of right sacroiliac joint (ICD-10 - M46.1) Aug, Neuropathy involving both lower extremities (ICD-10 - G57.93) Aug, Lumbar stenosis with neurogenic claudication (ICD-10 - M48.062) I independently reviewed the MRI of the lumbar spine and the plain x-ray of the lumbar spine with flexion and extension views. The patient has severe spinal stenosis at L3-4 and moderate to severe stenosis at L4-5. He has a very slight malalignment at L4-5 with facet enlargement, but on flexion-extension views there is no movement. He does have a retrolisthesis of L2-3 but no stenosis at that area and no movement on flexion and extension. This patient has neurogenic claudication that is quite severe. Given his overall status at present I would recommend decompressive lumbar laminectomy L3-L4-L5 bilateral. I reviewed all imaging face to face with the patient and his and discussed treatment options in detail, along with risks and benefits of surgery.He understands that there is potential for more surgery in the future should instability develop. He understands that he will probably have significant nerve regrowth pain. Indication operation postop course risk benefits of surgery and complications to include infection nerve damage spinal fluid leak incomplete relief of symptoms have been discussed and he would like to proceed with surgical intervention. [facility] Other 10-28-2022 History of Present illness Narrative* Jose Luis Norman PA-C - 08/25/2022 9:49 AM EDT Pt can be seen first available JU. Mild foraminal stenosis, moderate canal stenosis. Pt has not done PT or tried injection * Kerwin Escamilla - 08/23/2022 9:47 AM EDT Patient name: Cale Krause Are you being referred by a [place] for Spine Health Provider or Pain Management Provider at [facility]? No If answer is YES please schedule directly with surgeon, triage does not need to be completed. Is this a self-referral No If not, who is the Referring Provider Robert Culver, DO Is this a 2nd opinion? No Were you offered surgery? No MRI/CT/myelogram within 12 months? Yes If NO , please refer to medical spine or PCP to complete above imaging, triage does not need to be completed If YES, please ask for the name/address of the facility where the MRI/CT/myelogram was completed: [facility] Address: [address] [place] [address] MRI/CT/myelogram viewable in Epic: No If not, please provide [phone] to fax in imaging reports for review. Also, please inform patient to hand carry imaging disc to appointment. XR (spine) within 12 months: No If YES, please ask for the name/address of the facility where the XR was completed: N/A Dr. Faria's patients: Have you had previous EMG/Nerve Conduction Study, Ultrasound, or MRI for thesesame symptoms? If YES, please ask for the name/address of the facility where they were completed: Requested provider (First and Last name): [facility] Are you interested in a virtual visit if offered? No 1. Where are you having symptoms related to this visit? Legs, some pain Numbness, Tingling Buttocks Numb when sitting (L) hand tingles Back pain No Leg pain Yes Arm pain No Neck pain No 2. Are you having any of the following symptoms: Difficulty walking Yes Numbness Yes Weakness Yes Trouble using your hands? No 3. Have you had any injections or physical therapy in the last 12 months? No If YES then please ask for the name/address of the facility where the injections and/or physical therapy was completed No Have you tried any other kinds of non-surgical treatments in the last 12 months? (For example: NSAIDS, muscle relaxants, analgesics, oral steroids, Chiropractor, Acupuncture): Chiropractor, but stopped 3 month ago 4. Are you currently taking daily prescribed narcotic medications for your current symptoms (For example Oxycodone, Hydrocodone, Tramadol, Morphine, Other)? No 5. Have you had previous spinal surgery for this same symptoms? No If YES please ask for the name of facility/address of where the surgery was completed: N/A Additional Comments documented in this encounterSneedville ClinicEvaluation noteNo assessment information availableSt. [facility] Work Phone: Evaluation note* Diagnosis Onset Date Resolution Status Lumbar stenosis with neurogenic claudication [facility] Work Phone: Evaluation noteNo InformationNort [employer] Other Evaluation note* Diagnosis Onset Date Resolution Status Diabetes mellitus with diabetic polyneuropathy acute Diabetes mellitus with hyperglycemia acute Primary hypertension [facility] Work Phone: [facility] general Narrative - Reported* Type Description Date Medical History Arthritis Medical History diabetes mallitus Medical History hypertension Medical History stroke Surgical History knee surgery Hospitalization History see surgical hx [facility] Other [facility] general Narrative - Reported* Type Description Date Medical History Arthritis Medical History diabetes mellitus Medical History hypertension Medical History stroke Medical History neuropathy Medical History GERD Medical History tinea pedis Medical History tinea cruris Medical History obesity Surgical History knee surgery Surgical History Lumbar decompressive laminectom y 09/2022 Surgical History Tonsillectomy Hospitalization History see surgical [facility] Other History general Narrative - Reported* Type Description Date Medical History Arthritis Medical History diabetes mellitus Medical History hypertension Medical History stroke Medical History neuropathy Medical History GERD Medical History tinea pedis Medical History tinea cruris Medical History obesity Surgical History knee surgery Surgical History Lumbar decompressive laminectom y 09/2022 Surgical History Tonsillectomy Hospitalization History see surgical hx Hospitalization History Intracerebral hemorrhage 08/21/23 [facility] Other Hospital Discharge instructions Additional Instructions DISCHARGE INSTRUCTIONS FOR LUMBAR/THORACIC DISCECTOMY, LAMINECTOMY, LAMINOTOMY, DECOMPRESSION DIET -No restrictions unless diabetic or cardiac ACTIVITY -Activity as tolerated; no lifting over 10 pounds -Encourage ambulation -No driving until seen by your physician; may ride in car -No need to cover incision site -May shower on Sunday. -There is a liquid bandage on the wound, no dressing should be required unless drainage is noted. -Is ice 20 minutes every 1-2 hours as needed for back spasm -Use the prednisone provided if your leg pain returns to a significant degree. Otherwise please do not use the prednisone. OTHER -Call your physician's office for any of the following: fever, swelling, nausea, vomiting, drainage, numbness, tingling, or bowel and bladder changes. -Please call your physician's office to make an appointment to see your physician in two weeks.[facility] Work Phone: Reason for referral (narrative)* Reason *Waiting for appt Referral for evaluation and treatment of degenerative arthritis of his knees Diagnosis 1 Primary osteoarthrit is of knees, bilateral (M17.0) Referral Organization [facility] Palomo arias Referring Provider First Name Robert Referring Provider Last Name Palomo Referring Provider Specialty Internal Me dicine Referred Organization [facility] Referred Provider Ben Murillo II Referred Address [address] [place], [place],[address] Referred Provider Specialty Orthopaedic Surgery Referral Priority Routine General Notes Mr. Krause has a histo ry of moderate degenerative arthritis of both knees. He expresses increased discomfort in the left compared to the right. He denies swelling, erythema or warmth. He denies locking or giving away of his knees. He has not found any benefit with OTC pain medications and would like to be evaluated for additional treatment. We discussed cortisone injections (known diabetes), Synvisc injections and TKA. Tabatha Silva 06/26/2023 01:53:54 PM >received today, sent P2P [employer] Other Chief Complaint and Reason for Visit Chief Complaint M48.02;M48;062 Chief Complaint M48.02;M48;062 Stenosis Chief Complaint M48.02;M48;062 Stenosis Stenosis Stenosis Reason for Visit Lumbar stenosis with neurogenic claudication Chief Complaint Knee Pain Z79.899 M17.0 M81.0 Reason for Visit Diabetes mellitus wi th diabetic polyneuropathy Diabetes mellitus with hyperglycemia Primary hypertension Advance Directives No Advanced Directives Records Found Advance Directive Response Recorded Date/ Time Advance Directives No August 2:13pm Advance Directive Response Recorded Date/ Time Advance Directives No August 3:13pm Family History No Family History Records Found Relationship Condition Age at Onset Recorded Date/T mao father Heart disease Unknown Hypertension Unknown Not Specified Type 2 diabetes mellitus Unknown brother Stenosis of carotid artery Unknown Unknown Family Member Name Dates Details Family history of diabetes m ellitus: Mother, Father(V18.0, Z83.3) Status:Active Family history of cardiac di sorder: Father(V17.49, Z82.49) Status:Active Family history of coronary a rtery disease: Brother(V17.3, Z82.49) Status:Active Relationship Condition Age at Onset Recorded Date/T mao father Heart disease Unknown Hypertension Unknown Not Specified Type 2 diabetes mellitus Unknown brother Stenosis of carotid artery Unknown daughter Hypertension Unknown father Unknown Not Specified Unknown natural son Hypertension Unknown Chief Complaint * L5 fusion. * CALE KRAUSE is being seen for follow-up of a hospitalization for pre-operative clearance. * 67-year-old gentleman seen in cardiology consultation at the request of anesthesia and Dr. Calvert for preoperative risk assessment clearance prior to L5 fusion. Patient describes a recent event while lifting heavy chains with subsequent left arm, bilateral lower extremity numbness. He has no cardiova scular complaints. He is ambulating well other than fatigue with both legs and numbness with both legs. * Underlying comorbidities are noted for diabetes, hyperlipidemia, previous stroke with no intervention, he is a never smoker. * He denies syncope, angina, heart failure, hospitalizations * ECG reveals sinus bradycardia with first-degree AV block on current therapies * Incidentally with his stroke he has been treated with regular adult strength aspirin and baby aspirin con jointly (325+81 mg). * He is able to complete greater than 4-7 METS of activity on a daily basis; he has never had stress testing performed * Procedure itself is a very low risk procedure and is an outpatient procedure. * Is overall risk for cardiovascular morbidity perioperative events is anywhere between 5 and 6% given comorbidities, age. * Recommendations: Discontinue adult strength aspirin, he will likely need to hold his aspirin prior to lumbar surgery altogether, he is stable from a cardiovascular standpoint to proceed with this lowrisk procedure and can follow-up on a as needed basis Summary Purpose Additional Source Comments Source Comments (unrecognize d section and content) In the event this informatio n is protected by the Federal Confidentiality of Alcohol and Drug Abuse Patient Records regulations: The Federal rules restrict any use of the information to criminally investigate or prosecute any alcohol or drug abuse patient.[facility] Care Teams (unrecognized sec tion and content) Team Status: Active Member Role Status Dates Robert Culver DO Primary Care Provider Active Team Status: Active Member Role Status Dates Robert Culver DO Primary Care Provide r, Attending Provider Active Start: February 21, 2024 Team Status: Inactive Member Role Status Dates Robert Culver DO Primary Care Provide r, Attending Provider Active Start: March 03, 2024 End: March 03, 2024 Team Status: Inactive Member Role Status Dates Robert Culver DO Primary Care Provider Active Start: March 27, 2024 End: March 27, 2024 Ben Murillo II, MD Attending Provider Active Start: March 27, 2024 End: March 27, 2024 [employer] Relationship Specialty Start Date End Date Robert Culver DO [address] [place] [address] PCP - General Internal Medicine 08/23/22 Robert Culver DO [address] [place] [address] Internal Medicine 08/23/22 Team Status: Inactive Member Role Status Dates Robert Culver DO Primary Care Provider Active Sonido Calvert MD Attending Provider Active Team Status: Inactive Member Role Status Dates Robert Culver DO Primary Care Provider Active Ben Murillo II, MD Attending Provider Active Goals (unrecognized section and content) Goals may be documented in a n alternate sectionNo InformationGoals may be documented in an alternate sectionNo InformationNo InformationNo InformationNo InformationNo InformationNo InformationNo InformationGoals may be documented in an alternate sectionNo InformationNo InformationNo InformationNo InformationNo InformationNo InformationNo InformationNo InformationNo InformationGoals may be documented in an alternate section REASON FOR VISIT (unrecogniz ed section and content) referred by Dr. Culver Lumbar Spondylosis w/Myelopathy4 month Follow up-disc. month Follow uprefillWellnessLab ResultsWellnessCONSULT DR CULVER LINDA KNEE PAIN NXheadacheTCMhospital follow upNo InformationNo InformationRecheck Bilateral KneesrefillRefillBlood Sugar (unrecognized sect ion and content) No Status Records FoundNo Status Records FoundNo Status Records FoundNo Status Records FoundNo Status Records Found INFORMATION SOURCE (unrecogn ized section and content) DATE CREATED AUTHOR 09/27/2022 [facility] DATE CREATED AUTHOR AUTHOR'S ORGANIZ ATION 09/27/2022 [employer] DATE CREATED AUTHOR AUTHOR'S ORGANIZ ATION 01/17/2023 [facility] DATE CREATED AUTHOR AUTHOR'S ORGANIZ ATION 01/20/2023 [facility] DATE CREATED AUTHOR AUTHOR'S ORGANIZ ATION 04/04/2024 [facility] FOR RECORDS PERTAINING TO PATIENTS WHO ARE OR HAVE BEEN ENROLLED IN A CHEMICAL DEPENDENCY/SUBSTANCEABUSE PROGRAM, SOME INFORMATION MAY BE OMITTED. This clinical summary was aggregated from multiple sources. Caution should be exercised in using it in the provision of clinical care. This summary normalizes information from multiple sources, and as a consequence, information in this document may materially change the coding, format and clinical context of patient data. In addition, data may be omitted in some cases. CLINICAL DECISIONS SHOULD BE BASED ON THE PRIMARY CLINICAL RECORDS. [employer] provides no warranty or guarantee of the accuracy or completeness of information in this document.
[2024-04-04 08:36] LABS: Estimated GFR (African America >60 (>=60); Estimated GFR (Non-African Ame >60 (>=60)
--- NOTE | 2024-04-04 09:15 | MR_ITS ---
The [address] [address] Patient Name: CALE KRAUSE MRN: [id number] date: 1955 Sex: M Assigned Patient Location: LAB Current Patient Location: Accession/Order Number: [id number] Exam Date: 04/04/2024 09:35 Report Date: 04/05/2024 07:39 At the request of: RENO COYNE Procedure: MR head/brain wo/w con EXAMINATION: MR head/brain wo/w con HISTORY: STROKE, HEMORRHAGIC; FOLLOW UP IMAGING COMPARISON: MRI head 10/05/2023 TECHNIQUE: A variety of imaging planes and parameters were utilized for visualization of suspected pathology. Images were performed without and with Dotarem contrast. FINDINGS: CEREBRUM: Stable hemosiderin staining within right frontal lobe adjacent the caudate nucleus and lateral ventricle. Stable scattered T2 hyperintensities within the subcortical and periventricular deep white matter favoring chronic small vessel ischemic changes; demyelinating lesions/multiple sclerosis would also be considered. No new hemorrhage, mass, or evidence of acute infarction. CEREBELLUM: No edema, hemorrhage, mass, acute infarction, or inappropriate atrophy. BRAINSTEM: No edema, hemorrhage, mass, acute infarction, or inappropriate atrophy. CSF SPACES: Ventricles, cisterns, and sulci are appropriate for age. No hydrocephalus, subarachnoid hemorrhage, or mass. SKULL: No mass or other significant visible lesion. SINUSES: Mucosal thickening within the frontal sinuses and ethmoid air cells. ORBITS: Limited views are unremarkable. OTHER: No abnormal meningeal or parenchymal enhancement. MR/MR head/brain wo/w con IMPRESSION: 1. Stable remote hemosiderin staining within right frontal lobe from prior hemorrhage. No new findings. 2. Age consistent mild atrophy and chronic small vessel ischemic changes. 3. Chronic sinusitis. Electronically authenticated by: LEONEL BROWN Date: 04/05/2024 07:39
== END 2024-04-04 08:20 | disposition home or self-care (01) ==
LOC: LAB 08:19
PROVIDERS: Visit Provider Nurse Practitioner Family
DX: I61.0 Nontraumatic intracerebral hemorrhage in hemisphere, subcortical (principal); J32.8 Other chronic sinusitis
CPT/HCPCS: 36415; 70553; 82565; A9575

== ENCOUNTER 2024-07-09 08:12 | Outpatient (OUT) | payer MEDICARE, SELFPAY ==
[2024-07-09 08:35] LABS: Basophils Absolute Auto 0.1 10^3/uL (0.0-0.1); Basophils Percent Auto 1.6 % (0.2-2.0); Eosinophils Absolute Auto 0.8 10^3/uL (0.0-0.7); Eosinophils Percent Auto 8.6 % (0.9-7.0); Hematocrit 44.2 % (42.0-54.0); Hemoglobin 15.1 g/dL (14.0-18.0); Immature Granulocytes Abs Auto 0.05 10^3/uL (0.00-0.03); Immature Granulocytes Pct Auto 0.6 % (0.0-0.5); Lymphocytes Absolute Auto 2.1 10^3/uL (1.2-3.8); Lymphocytes Percent Auto 23.6 % (20.5-60.0); Mean Corpuscular HGB Conc 34.2 g/dL (29.9-35.2); Mean Corpuscular Hemoglobin 30.3 pg (25.9-34.0); Mean Corpuscular Volume 88.8 fL (80.0-94.0); Mean Platelet Volume 9.2 fL (9.5-13.5); Monocytes Absolute Auto 0.8 10^3/uL (0.3-0.8); Monocytes Percent Auto 9.5 % (1.7-12.0); Neutrophils Percent Auto 56.1 % (43.0-75.0); Platelet Count 249 10^3/uL (150-450); Red Blood Count 4.98 10^6/uL (4.70-6.10); Red Cell Distribution Width 13.3 % (11.0-15.0); White Blood Count 8.9 10^3/uL (4.0-11.0)
[2024-07-09 08:56] LABS: Microalbumin Urine Random 8.7 mg/dL (<=30.0)
[2024-07-09 09:29] LABS: Alanine Aminotransferase 24 U/L (16-63); Albumin Globulin Ratio 1.1; Albumin Level 3.8 g/dL (3.4-5.0); Alkaline Phosphatase 60 U/L (46-116); Anion Gap 11.2; Aspartate Amino Transferase 12 U/L (15-37); BUN Creatinine Ratio 15.6; Bilirubin Total 0.5 mg/dL (0.2-1.0); Calcium 9.3 mg/dL (8.5-10.1); Carbon Dioxide 30.1 mmol/L (21.0-32.0); Chloride 101 mmol/L (98-107); Chol HDL Ratio 4.5; Cholesterol 157 mg/dL (<=200); Estimated GFR (African America >60 (>=60); Estimated GFR (Non-African Ame >60 (>=60); Globulin 3.6 g/dL; Glucose 136 mg/dL (74-106); HDL Cholesterol 35 mg/dL (40-60); Potassium 3.3 mmol/L (3.5-5.1); Sodium 139 mmol/L (136-145); Total Protein 7.4 g/dL (6.4-8.2); Triglycerides 234 mg/dL (<=150); VLDL CHOLESTEROL 46.8 mg/dL
[2024-07-09 09:42] LABS: Estimated Average Glucose 131 mg/dL; Glycohemoglobin A1C 6.2 % (4.5-6.2)
== END 2024-07-09 08:13 | disposition home or self-care (01) ==
LOC: LAB 08:14
PROVIDERS: PCP Internal Medicine; Visit Provider Internal Medicine
DX: E11.42 Type 2 diabetes mellitus with diabetic polyneuropathy (principal); I67.2 Cerebral atherosclerosis; I10 Essential (primary) hypertension; E78.00 Pure hypercholesterolemia, unspecified; Z12.5 Encounter for screening for malignant neoplasm of prostate
CPT/HCPCS: 36415; 80053; 80061; 82043; 83036; 85025; G0103

== ENCOUNTER 2024-08-14 09:55 | Outpatient (OUT) | payer MEDICARE, SELFPAY ==
--- OUTSIDE RECORDS SUMMARY | 2024-08-14 10:05 | XMS_ITS | CCD ---
Author Organization [facility] Care Team Providers Care Report Specialist Name Role Phone Robert Culver DO Unavailable [phone] Robert Culver DO Primary Care Provider DO Robert Culver Primary Care Provider [phone] MD Sonido Calvert Attending Provider [phone] Sonido Calvert Unavailable Robert Culver Unavailable Unavailable Unavailable Reynaldo, Dr. Kiko Ho Referring Minervava alicia Jacobs, Dr. Kiko Ho Attending Unava ilable Robert Culver Edmineola Primary Care Unavailabl e Robert Culver Unavailable IVY, DR YEE Admitting Unavailable BALL, DR YEE [...] Unavailable BALL, DR YEE Primary Care Unavailable NADERESissy, DR RICARDO Perez Admitting Unavailable BALL, DR YEE Primary Care Unavailable RENE, DR JOSE LUIS Pino Consulting Unavailable NADERESissy, DR RICARDO Perez Attending Unavailable NADERER, DR RICARDO Perez Consulting Unavailable GLATZ, LIVE Redmond Consulting Unavailable DION ., KRYSTYNA Consulting Unavailable GILMORE, LESLIE Consulting Unavailable IVY, DR YEE Primary Care Unavailable REQUEST, DR RAHMAN LISTED Admitting Unavaila ble IVY, DR YEE Consulting Unavailable REQUEST, DR RAHMAN [...] Provider MD Ben Murillo II Attending Provider BALL, ROBERT E Referring Unavailable BALL, ROBERT E Primary Care Unavailable MERARICARMENMatilde WILFREDOZAIRA Attending Unavailable BALL, ROBERT E Primary Care Unavailable Ball, DO Robert Primary Care Provider MD Ben Murillo II Attending Provider Ivy, Robert Primary Care Unavailable [place] II, Ben Redmond Admitting Unavailabl e [place] II, Ben Redmond Attending Unavailabl e [place] II, Ben Redmond Attending Unavailabl e Chidi II, Ben Redmond Admitting Unavailabl e Ball, Robert Primary Care Unavailable Chidi II, Ben Redmond Attending Unavailabl e [place] II, Ben Redmond Admitting Unavailabl e Ball, Robert Primary Care Unavailable Chidi II, Ben Redmond Attending Unavailabl e [place] II, Ben Redmond Admitting Unavailabl e Ball, Robert Primary Care Unavailable Chidi II, Ben Redmond Attending Unavailabl e Ball, Robert Primary Care Unavailable [place] II, Ben Redmond Admitting Unavailabl e [place] II, Ben M Admitting Unavailabl e Ball, Robert Primary Care Unavailable Chidi II, Ben Redmond Attending Unavailabl e Ball, Robert Primary Care Unavailable Chidi II, Ben Redmond Admitting Unavailabl e Chidi II, Ben Redmond Attending Unavailabl e Ball, Robert Primary Care Unavailable [place] II, Ben Redmond Admitting Unavailabl e [place] II, Ben Redmond Attending Unavailabl e Ball, DO Robert Primary Care Provider [phone] MD Ben Murillo II Attending Provider Allergies Allergy Classification Reported Allergen(s) Allergy Type Date of Onset Reaction(s) Facility (1 source) Penicillin V Drug Allergy Unknown [facility] Other (3 sources) Penicillins; Translations: [Penicillins] Allergy to drug (finding) 08-21-2023 [facility] Repository (17 sources) Penicillin; Translations: [penicillin] Drug Allergy Unknown [facility] Repository (1 source) Penicillins Drug allergy (disorder) 08-07-2024 [facility] Repository Medications Current Medications Medication Drug Class(es) Dates Sig (Normalized) Sig (Original) acetaminophen 500 mg oral tablet (18 sources) Start: 04-16-2024 End: 06-10-2024 take 1000 mg by mouth every eight hours Acetaminophen Active 1000 MG PO Q8H 180 30 June 10, 2024 10:57am amLODIPine 5 mg oral tablet (20 sources) Dihydropyridine Calcium Channel Sarah Start: 06-24-2024 take 1 tablet by mouth once daily Amlodipine Active 0 .ROUTE .COMPLEX 90 June 24, 2024 9:38am TAKE 1 TABLET BY MOUTH DAILY Start: 09-20-2022 End: 06-24-2024 take 5 mg by mouth once daily in the morning Amlodipine Discontinued 5 MG PO Every morning September 20, 2022 1:00am June 24, 2024 9:38am aspirin 81 mg delayed release oral tablet [...] Activ e Blood-Glucose Meter,Continuous (Freestyle Jessica [address] [place]) misc (14 sources) Start: 02-20-2024 Blood-Glucose Meter,Continuous (Freestyle Jessica [place]) misc Active 0 .Route February 20, 2024 12:00am Use to test home BS qid Blood-Glucose Sensor (Freestyle Jessica 3 Sensor) device (14 sources) Start: 02-20-2024 Blood-Glucose Sensor (Freestyle Jessica 3 Sensor) device Active 0 .Route February 20, 2024 12:00am Use to test home BS qid carvedilol 6.25 mg oral tablet (20 sources) alpha-Adrener gic Sarah, beta-Adrenerg ic Sarah Start: 05-07-2024 take 6.25 mg by mouth twice daily Carvedilol Active 6.25 MG PO Twice daily 180 90 May 07, 2024 4:42pm Start: 12-19-2023 End: 05-07-2024 take 25 mg by mouth twice daily Carvedilol Discontinue d 25 MG PO Twice daily 180 90 February 13, 2024 5:08pm May 07, 2024 4:43pm Start: 09-20-2022 End: 12-19-2023 take 12.5 mg by mouth twice daily Carvedilol Discontinued 12.5 MG PO Twice daily September 20, 2022 1:00am December 19, 2023 2:39pm take 1 tablet by shanon th every twelve hours Carvedilol 25 MG 1 tablet with food Orally Twice a day for 90 days Active cetirizine hydrochloride 10 mg oral tablet (20 sources) Histamine-1 Receptor Antagonist Start: 05-02-2024 take 1 tablet by mouth once daily Cetirizine (24hour Allergy) 10 mg tablet Active 10 MG PO Daily May 02, 2024 12:00am Start: 09-20-2022 End: 12-19-2023 take 1 tablet by mouth once daily at bedtime Cetirizine (Zyrtec) 10 mg Tablet Discontinued 10 MG PO Daily at bedtime September 20, 2022 1:00am December 19, 2023 2:42pm cinnamon preparation 500 mg oral tablet (10 sources) Non-Standardized Food Allergenic Extract diclofenac sodium 75 mg delayed release oral tablet (20 sources) Nonsteroidal Anti-inflammatory Drug Start: take 75 mg by mouth twice daily Diclofenac Sodium Active 75 MG PO Twice daily 60 30 August 07, 2024 12:00am Start: 12-19-2023 Diclofenac Sod ium (Voltaren Arthritis Pain) 1 % gel Active [...] 2022 1:00am February 13, 2024 5:09pm glimepiride 4 mg oral tablet (20 sources) Sulfonylurea Start: 07-15-2024 take 4 mg by mouth once daily Glimepiride Active 4 MG PO Daily 90 90 July 15, 2024 3:17pm Start: 02-13-2024 End: 07-15-2024 take 1 tablet by mouth twice daily at breakfast Glimepiride Discontinued 0 .ROUTE .COMPLEX 180 February 13, 2024 7:37am July 15, 2024 3:21pm TAKE 1 TABLET BY MOUTH TWICE DAILY (TAKE first dose WITH BREAKFAST or first main meal OF the day) Start: 02-13-2024 take 1 tablet by shanon th twice daily at breakfast Glimepiride Active 0 [...] days Active take 2 tablets by mo uth every twenty-four hours Glimepiride 4 MG 2 tablets Oral Once a day Active take 1 tablet by shanon th once daily Glimepiride 1 MG Oral Tablet Take 1 tablet daily Quantity: 90 Refills: 1 Ordered: 26-Sep-2022 DO Active glucosamine sulfate 500 mg oral tablet (20 sources) Start: 12-19-2023 take 1 tablet by mouth once daily Glucosamine Sulfate (Glucosamine) 500 mg tablet Active 500 MG PO Daily December 19, 2023 1:00am administer with a meal hydroCHLOROthiazide 12.5 mg / lisinopril 20 mg oral tablet (20 sources) Thiazide Diuretic, Angiotensin Converting Enzyme Inhibitor Start: 06-24-2024 take 2 tablets by mouth once daily Lisinopril-Hydrochlorothiazide Active 0 .ROUTE .COMPLEX 180 June 24, 2024 9:38am TAKE 2 TABLETS BY MOUTH DAILY for 90 days Start: 09-20-2022 End: 06-24-2024 take 2 tablets by mouth once daily Lisinopril-Hydrochlorothiazide Discontin ued 2 TAB PO Daily December 19, 2023 2:40pm June 24, 2024 9:38am take 2 tablets by mouth once daily Lisinopril-hydroCHLOROthiazide 20-12.5 M G Take 2 tablets by mouth daily Active hydrOXYzine pamoate 25 mg oral capsule (15 sources) Antihistamine Start: 07-15-2024 take 1 capsule by mouth once Hydroxyzine Pamoate (Vistaril) 25 mg capsule Active 25 MG PO Once 90 July 15, 2024 3:18pm Start: 06-06-2024 End: 07-15-2024 Hydroxyzine Pamoate (Vistari l) 25 mg capsule Discontinued 25 MG PO every 6 to 8 hours 28 7 June 20, 2024 11:33am July 15, 2024 3:21pm Multivitamin preparation (20 sources) Start: 12-19-2023 take 1 tablet by mouth once daily Multivitamin Active 1 TAB PO Daily December 19, 2023 1:00am nitrofurantoin, macrocrystals 25 mg / nitrofurantoin, monohydrate 75 mg oral capsule (4 sources) Nitrofuran Antibacterial Start: 07-15-2024 End: 07-15-2024 take 1 capsule by mouth twice daily at mealtime Nitrofurantoin Monohyd/M-Cryst (Macrobid) 100 mg capsule Active 100 MG PO Twice daily 56 28 July 15, 2024 10:06pm must administer with a meal/food Semaglutide (20 sources) Start: 05-02-2024 Semaglutide (Ozempic) 0.25 mg or 0.5 mg (2 mg/3 mL) pen injector Active 0.5 MG SUBCUT every week May 02, 2024 12:00am Start: 01-24-2024 End: 05-02-2024 Semaglutide (Ozempic) 0.25 m g or 0.5 mg (2 mg/3 mL) pen injector Discontinued 0.5 MG SUBCUT every week 3.68 January 24, 2024 8:44am May 02, 2024 11:00am for 4 weeks Start: 01-24-2024 Semaglutide (O zempic) 0.25 mg [...] December 21, 2023 3:54pm for 4 weeks Zinc (10 sources) Start: 05-02-2024 take 50 mg by mouth once daily at bedtime Zinc Active 50 MG PO Daily at bedtime May 02, 2024 12:00am Completed/Discontinued Medications Medication Drug Class(es) Dates Sig (Normalized) Sig (Original) atorvastatin 40 mg oral tablet (20 sources) HMG-CoA Reductase Inhibitor Start: 09-20-2022 End: [...] Or ally daily in the evening Active cefadroxil 500 mg oral capsule (12 sources) Cephalosporin Antibacterial Start: 04-16-2024 End: 07-15-2024 take 500 mg by mouth every twelve hours Cefadroxil Discontinued 500 MG PO Q12H 11 05April 16, 2024 12:00am July 15, 2024 3:23pm DO NOT RECONCILE UNTIL DOS: 05/13/24. MED TO BED cholecalciferol 0.125 mg oral tablet (18 sources) Vitamin D Start: 09-20-2022 End: 12-19-2023 [...] / glucosamine hydrochloride 250 mg oral tablet (18 sources) Start: 09-20-2022 End: 12-19-2023 take 1 tablet by mouth once daily at bedtime Glucosamine-Chondroitin (Osteo Bi-Flex) 250-200 mg Tablet Discontinued 1 TAB PO Daily at bedtime September 20, 2022 1:00am December 19, 2023 2:42pm Cvrsc-Jb-Twut TA BS Take 1 tablet daily Quantity: 0 Refills: 0 Ordered: 26-Sep-2022 DO Active cinnamon bark 500 mg oral capsule (20 sources) Start: 12-19-2023 End: 05-02-2024 take 500 mg by mouth once daily Cinnamon Bark Discontinued 500 MG PO Daily December 19, 2023 1:00am May 02, 2024 10:50am cyclobenzaprine hydrochloride 10 mg oral tablet (16 sources) Muscle Relaxant Start: 10-03-2022 End: 12-19-2023 take 10 mg by mouth three times daily Cyclobenzaprine Discontinued 10 MG PO Three times daily 40 October 03, 2022 1:00am December 19, 2023 2:42pm docusate sodium 50 mg / sennosides, alf 8.6 mg oral tablet (12 sources) Start: 04-16-2024 End: 08-07-2024 take 2 tablets by mouth once daily Sennosides-Docusate Sodium (Senokot-S) 8.6-50 mg tablet Discontinued 2 TAB PO daily 60 April 16, 2024 12:00am August 07, 2024 8:52am DO NOT RECONCILE UNTIL DOS: 05/13/24. MED TO BED metFORMIN hydrochloride 500 mg oral tablet (17 sources) Biguanide Start: 09-20-2022 End: 09-20-2022 Metformin Discontinued MG TABLET September 20, 2022 1:00am September 20, 2022 3:17pm ondansetron 4 mg oral tablet (12 sources) Serotonin-3 Receptor Antagonist Start: 04-16-2024 End: 05-29-2024 take 4 mg by mouth every eight hours Ondansetron Hcl Discontinued 4 MG PO Q8H April 16, 2024 12:00am May 29, 2024 1:05pm DO NOT RECONCILE UNTIL DOS: 05/13/24. MED TO BED oxyCODONE hydrochloride 5 mg oral tablet (20 sources) Opioid Agonist Start: 06-02-2024 End: 07-15-2024 take 5 mg by mouth every eight hours Oxycodone Discontinued 5 MG PO Every 8 hours 20 June 02, 2024 July 15, 2024 3:23pm Start: 04-16-2024 End: 06-02-2024 take 5 mg by mouth every four hours Oxycodone Discontinued 5 MG PO Q4H 42 April 16, 2024 June 02, 2024 3:15pm DO NOT RECONCILE UNTIL DOS: 05/13/24. MED TO BED Start: 10-03-2022 End: 12-19-2023 take 5-10 mg by mouth every six hours Oxycodone Discontinued 5 - 10 MG PO Q6H 40 8 October 03, 2022 December 19, 2023 2:42pm pantoprazole 20 mg delayed release oral tablet (12 sources) Proton Pump Inhibitor Start: 04-16-2024 End: 08-07-2024 take 1 tablet by mouth once daily Pantoprazole (Protonix) 20 mg tablet,delayed release (DR/EC) Discontinued 20 MG PO daily 35 35 April 16, 2024 12:00am August 07, 2024 8:32am DO NOT RECONCILE UNTIL DOS: 05/13/24. MED TO BED pioglitazone 30 mg oral tablet (20 sources) Peroxisome Proliferator Receptor alpha Agonist, Peroxisome Proliferator Receptor gamma Agonist, Thiazolidinedione Start: 02-22-2024 End: 07-15-2024 take 30 mg by mouth once daily Pioglitazone Discontinued 30 MG PO Daily 90 90 March 03, 2024 3:36pm May 02, 2024 11:00am Start: 12-21-2023 End: 01-24-2024 take 30 mg [...] a day for 30 days Sep, Active polyethylene glycol 3350 63937 mg powder for oral solution (12 sources) Osmotic Laxative Start: 04-16-2024 End: 05-02-2024 Polyethylene Glycol 3350 (Miralax) 17 gram/dose powder Discontinued 17 GM PO daily 7 April 16, 2024 12:00am May 02, 2024 10:56am 1 packed mixed with 8 ounces of fluid. predniSONE 10 mg oral tablet (20 sources) Start: 04-16-2024 End: 05-29-2024 take 10 mg by mouth once daily Prednisone Discontinued 10 MG PO daily 10 April 16, 2024 12:00am May 29, 2024 1:05pm DO NOT RECONCILE UNTIL DOS: 05/13/24. MED TO BED Start: 10-03-2022 End: 12-19-2023 Prednisone Discontinued 1 do se pk PO per package directions October 03, [...] then take 1 tab for 3 days rivaroxaban 10 mg oral tablet (12 sources) Factor Xa Inhibitor Start: 04-16-2024 End: 08-07-2024 take 10 mg by mouth once daily Rivaroxaban Discontinued 10 MG PO daily 35 35 April 16, 2024 12:00am August 07, 2024 8:52am DO NOT RECONCILE UNTIL DOS: 05/13/24. MED TO BED sulfamethoxazole 800 mg / trimethoprim 160 mg oral tablet (16 sources) Dihydrofolate Reductase Inhibitor Antibacterial, Sulfonamide Antimicrobial Start: 10-03-2022 End: 12-19-2023 take 1 tablet by mouth every twelve hours Sulfamethoxazole- Trimethoprim (Bactrim Ds) 800-160 mg tablet Discontinued 1 TAB PO Q12H October 03, 2022 1:00am December 19, 2023 2:41pm traMADol hydrochloride 50 mg oral tablet (18 sources) Opioid Agonist Start: 06-02-2024 End: 07-15-2024 take 50 mg by mouth every eight hours Tramadol Discontinued 50 MG PO Every 8 hours 30 10 June 02, 2024 3:14pm July 15, 2024 3:22pm Start: 04-16-2024 End: 06-02-2024 take 50 mg by mouth every six hours Tramadol Discontinued 50 MG PO Q6H 40 10 April 16, 2024 12:00am June 02, 2024 3:15pm DO NOT RECONCILE UNTIL DOS: 05/13/24. MED TO BED triamcinolone acetonide 40 mg/ml injectable suspension (20 sources) Corticosteroid Start: 07-11-2023 Kenalog-40 13 Jun, 2023 80 mg zinc acetate 50 mg oral capsule (17 sources) Start: 09-20-2022 End: 12-19-2023 take 50 [...] Date Documented Date Episodic/Chronic Acute cerebrovascular disease (20 sources) Basal ganglia hemorrhage; Translations: [Nontraumatic intracerebral [...] hypercholesterolemia, unspecified] Onset: 07-18-2022 Chronic Esophageal disorders (20 sources) Gastro-esophageal reflux disease with esophagitis; Translations: [Gastroesophageal reflux disease with esophagitis without hemorrhage] 12-19-2023 Chronic Essential hypertension (20 sources) Hypertensive disorder; Translations: [Unspecified essential hypertension] Onset: 08-09-2022 Chronic Hyperplasia of prostate (4 sources) Benign prostatic hyperplasia; Translations: [Benign prostatic hyperplasia with lower urinary tract symptoms] 07-09-2024 Chronic Intracranial injury (1 source) Concussion without loss of consciousness, initial encounter Episodic Late effects of cerebrovascular disease (1 source) Dysarthria following cerebral infarction; Translations: [DYSARTHRIA FOLLOW CEREBRAL INFARCT] Onset: 08-09-2022 Chronic Osteoarthritis (20 sources) Primary gonarthrosis, bilateral; Translations: [Bilateral primary osteoarthritis of knee] Onset: 03-27-2024 Chronic Osteoporosis (15 sources) Osteoporosis; Translations: [Age-related osteoporosis without current pathological fracture] Onset: 03-27-2024 03-26-2024 Chronic Other aftercare (16 sources) Aftercare following joint replacement surgery; Translations: [Aftercare following joint replacement] Onset: 06-26-2024 05-29-2024 Chronic Other aftercare (1 source) Long-term current use of drug therapy; Translations: [Other fpc (current) drug therapy] 03-26-2024 Episodic Other and ill-defined cerebrovascular disease (20 sources) Cerebral atherosclerosis; Translations: [Cerebral atherosclerosis] 03-01-2024 Chronic Other and ill-defined cerebrovascular disease (16 sources) Cerebral atherosclerosis; Translations: [Cerebral atherosclerosis] Chronic Other and ill-defined cerebrovascular disease (1 [...] cerebral infarction without residual deficits Episodic Other connective tissue disease (7 sources) History of total knee arthroplasty; Translations: [Presence of right artificial knee joint] 05-28-2024 Chronic Other connective tissue disease (15 sources) Presence of right artificial knee joint; Translations: [Knee joint replacement] Onset: 08-07-2024 05-29-2024 Chronic Other nervous system disorders (17 sources) Bilateral peripheral neuropathy of lower limbs; Translations: [Unspecified mononeuropathy of bilateral lower limbs] Chronic Other nervous system disorders (1 source) Unspecified mononeuropathy of bilateral lower limbs Chronic Other non-traumatic joint disorders (1 source) Pain in left knee; Translations: [Pain in left knee] Onset: 07-11-2024 Episodic Other nutritional; endocrine; and metabolic disorders (1 [...] conditions (not mental disorders or infectious disease) (20 sources) Encounter for screening for malignant neoplasm of prostate; Translations: [Encounter for screening for malignant neoplasm of colon] Onset: 07-18-2022 Episodic Residual codes; unclassified (9 sources) Hypersomnia; Translations: [Hypersomnia, unspecified] Chronic Residual codes; unclassified (1 source) Hypersomnia, unspecified Chronic Residual codes; unclassified (1 source) Pain, unspecified; Translations: [Pain, unspecified] Onset: 04-09-2024 Episodic Spondylosis; intervertebral disc disorders; other back problems (20 sources) Inflammation of sacroiliac joint; Translations: [Sacroiliitis, not elsewhere classified] Onset: 08-09-2022 Chronic Spondylosis; intervertebral disc disorders; other back problems (20 sources) Spinal stenosis, cervical region; Translations: [Spinal stenosis, lumbar region with neurogenic claudication] Onset: 08-10-2022 Episodic Unclassified (1 source) CONTACT W/AND (SUSP) EXPOS COVID-19; Translations: [CONTACT W/AND (SUSP) EXPOS COVID-19] Onset: 08-09-2022 Past or Other Problems Problem Classification Problem Date Documented Da te Episodic/Chronic Esophageal disorders (8 sources) Esophageal disorders; Translations: [Gastroesophageal reflux disease with esophagitis without hemorrhage] Fluid and electrolyte disorders (1 source) Hyperkalemia; Translations: [HYPERKALEMIA] Onset: 09-30-2022 Episodic Headache; including migraine (1 source) Headache; including migraine Malaise and fatigue (1 source) Weakness; Translations: [WEAKNESS] Onset: 08-09-2022 Episodic Other aftercare (4 sources) Other fpc (current) drug therapy; Translations: [OTH HALF-WAY CURRENT DRUG THERAPY] Onset: 08-09-2022 Episodic Other aftercare (1 source) 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; Translations: [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 SUPPORT WORKER CURRENT USE OF ASPIRIN] Onset: 08-09-2022 Episodic Other aftercare (1 source) [facility] (current) use of oral hypoglycemic drugs; Translations: [HALF-WAY USE ORAL HYPOGLYCEMIC DX] Onset: 08-09-2022 Episodic Other nervous system disorders (4 sources) Paresthesia of skin; Translations: [PARESTHESIA OF SKIN] Onset: 08-08-2022 Episodic Other nervous system disorders (3 sources) Anesthesia of skin; Translations: [ANESTHESIA OF SKIN] Onset: 08-03-2022 Episodic Other non-traumatic joint disorders (20 sources) Pain in right knee; Translations: [Right knee pain] Onset: 04-16-2024 04-16-2024 Episodic Unclassified (1 source) Never smoked tobacco; Translations: [Never a smoker] Unclassified (1 source) Polyuria R35.89 Results Test Name Value Interpretation Reference Range Facility XR knee RT 2Von 08-07-2024 XR knee RT 2V [facility] [address] [place] [address] XRay Report Signed Patient: Cale Krause MR#: [id number] : 1955 Acct:[id number] Age/Sex: 69 / M ADM Date: 08/07/24 Loc: [facility] Room: Type: [facility] Attending Dr: Ben Murillo II, MD Copies to: Ben Murillo MD Ordering Provider: Ben Murillo MD Date of Service: 08/07/24 XR/XR knee RT 2V: Z47.1 - Aftercare following joint replacement surgery ([id number]) XR/XR tibia fibula RT 2V*: Z47.1 - Aftercare following joint replacement surgery ([id number]) XR/XR femur RT 2V*: Z47.1 - Aftercare following joint replacement surgery 2 views right femur and 2 views right tibia and fibula HISTORY: Status post right total knee arthroplasty Adequate hips. Uncomplicated right knee arthroplasty. 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 Intact tibia and fibula. Ankle joint unremarkable. XR/XR femur RT 2V* IMPRESSION: Unremarkable right knee arthroplasty. 2 views of the right knee and Adequate hardware without complication. Adequate alignment. No acute bony findings. Anterior soft tissue postsurgical prominence. IMPRESSION: Uncomplicated right knee arthroplasty. Impression dictated by: Tunde Main M.D.08/07/2024 12:56 PM Dictation Location: [place] [address] Transcribed By: JAYME 08/07/24 1256 Dictated By: Tunde Main DO 08/07/24 1254 Signed By: 08/07/24 1256 Normal [facility] Basophils Auto (Bld) [#/Vol] on 07-09-2024 Basophils (Bld) [#/Vol] 0.1 10 3/uL 0.0-0.1 [facility] Basophils/100 WBC Auto (Bld) on 07-09-2024 Basophils/100 WBC (Bld) 1.6 % 0.2-2.0 [facility] Cholesterol in LDL Calc [Mas s/Vol]on 07-09-2024 Cholesterol in LDL [Mass/Vol] 76.0 mg/dL [facility] Comment on above: <100 mg/dl [id number] 0-129 mg/dl NEAR OR ABOVE [id number] mg/dl BORDERLINE [id number] mg/dl HIGH>190 mg/dl VERY HIGH Cholesterol in VLDL Calc [Ma ss/Vol]on 07-09-2024 Cholesterol in VLDL [Mass/Vol] 46.8 mg/dL [facility] Eosinophils/100 WBC Auto (Bl d)on 07-09-2024 Eosinophils/100 WBC (Bld) 8.6 % High 0.9-7.0 [facility] Erythrocyte distribution wid th Auto (RBC) [Ratio]on 07-09-2024 Erythrocyte distribution width (RBC) [Ratio] 13.3 % 11.0-15.0 [facility] Estimated glomerular filtrat ion rate (GFR) non- Americanon 07-09-2024 GFR/1.73 sq M.predicted among non-blacks MDRD (S/P/Bld) [Vol rate/Area] mL/min/{1.73_m2} >=60 [facility] Globulin Calc (S) [Mass/Vol] on 07-09-2024 Globulin (S) [Mass/Vol] 3.6 g/dL [facility] Glucose mean value [Mass/vol ume] in Blood Estimated from glycated hemoglobinon 07-09-2024 Average glucose Estimated from glycated hemoglobin (Bld) [Mass/Vol] 131 mg/dL [facility] Hematocrit Auto (Bld) [Volum e fraction]on 07-09-2024 Hematocrit (Bld) [Volume fraction] 44.2 % 42.0-54.0 [facility] Hemoglobin [Mass/volume] in Bloodon 07-09-2024 Hemoglobin (Bld) [Mass/Vol] 15.1 g/dL 14.0-18.0 [facility] Laboratory - Chemistry and C hemistry - challengeon 07-09-2024 Albumin [Mass/Vol] 3.8 g/dL 3.4-5.0 [facility] ALP [Catalytic activity/Vol] 60 U/L 46-116 [facility] ALT [Catalytic activity/Vol] 24 U/L 16-63 [facility] AST [Catalytic activity/Vol] 12 U/L Low 15-37 [facility] Bilirubin [Mass/Vol] 0.5 mg/dL 0.2-1.[address] [facility] Calcium [Mass/Vol] 9.3 mg/dL 8.5-10.1 [facility] Chloride [Moles/Vol] 101 mmol/L 98-[address] [facility] Cholesterol [Mass/Vol] 157 mg/dL <=200 [facility] Cholesterol in HDL [Mass/Vol] 35 mg/dL Low 40-60 [facility] Comment on above: > or =60 mg/dl - LOW CARDIOVASCULAR RISK<40 mg/dl - HIGH CARDIOVASCULAR RISK CO2 [Moles/Vol] 30.1 mmol/L 21.0-32.0 [facility] Creatinine [Mass/Vol] 0.90 mg/dL 0.70-1.30 [facility] GFR/1.73 sq M.predicted MDRD (S/P/Bld) [Vol rate/Area] mL/min/{1.73_m2} >=60 [facility] Glucose [Mass/Vol] 136 mg/dL High 74-106 [facility] Potassium [Moles/Vol] 3.3 mmol/L Low 3.5-5.1 [facility] Protein [Mass/Vol] 7.4 g/dL 6.4-8.2 [facility] Sodium [Moles/Vol] 139 mmol/L 136-145 [facility] Triglyceride [Mass/Vol] 234 mg/dL High <=150 [facility] Urea nitrogen [Mass/Vol] 14.0 mg/dL 7.0-18.0 [facility] Urea nitrogen/Creatinine [Mass ratio] 15.6 mg/mg [facility] Laboratory - Hematology and Cell countson 07-09-2024 HbA1c (Bld) [Mass fraction] 6.2 % 4.5-6.2 [facility] Comment on above: ADA RECOMMENDED LIMI T 4.0 - 6.0ADA THERAPEUTIC TARGET < 7.0ACTION SUGGESTED> 7.0 Immature granulocytes/100 WBC (Bld) 0.6 % High 0.0-0.5 [facility] Leukocytes [#/volume] correc stanley for nucleated erythrocytes in Blood by Automated counon 07-09-2024 WBC corrected for nucl RBC Auto (Bld) [#/Vol] 8.9 10 3/uL 4.0-11.0 [facility] Lymphocytes Auto (Bld) [#/Vo l]on 07-09-2024 Lymphocytes (Bld) [#/Vol] 2.1 10 3/uL 1.2-3.8 [facility] Lymphocytes/100 WBC Auto (Bl d)on 07-09-2024 Lymphocytes/100 WBC (Bld) 23.6 % 20.5-60.0 [facility] MCH Auto (RBC) [Entitic mass ]on 07-09-2024 MCH (RBC) [Entitic mass] 30.3 pg 25.9-34.0 [facility] MCHC Auto (RBC) [Mass/Vol]on 07-09-2024 MCHC (RBC) [Mass/Vol] 34.2 g/dL 29.9-35.2 [facility] MCV Auto (RBC) [Entitic vol] on 07-09-2024 MCV (RBC) [Entitic vol] 88.8 fL 80.0-94.0 [facility] Microalbumin [Mass/volume] i n Urineon 07-09-2024 Albumin DL <= 20 mg/L (U) [Mass/Vol] 8.7 mg/dL <=30.0 [facility] Monocytes Auto (Bld) [#/Vol] on 07-09-2024 Monocytes (Bld) [#/Vol] 0.8 10 3/uL 0.3-0.8 [facility] Monocytes/100 WBC Auto (Bld) on 07-09-2024 Monocytes/100 WBC (Bld) 9.5 % 1.7-12.0 [facility] Neutrophils Auto (Bld) [#/Vo l]on 07-09-2024 Neutrophils (Bld) [#/Vol] 5.0 10 3/uL 1.4-6.5 [facility] Neutrophils/100 WBC Auto (Bl d)on 07-09-2024 Neutrophils/100 WBC (Bld) 56.1 % 43.0-75.0 [facility] No Panel Informationon 07-09 Eosinophils # (Auto) 0.8 10 3/uL High 0.0-0.7 [facility] Immature Granulocyte # (Auto) 0.05 10 3/uL High 0.00-0.03 [facility] Prostate Specific Antigen Screen 4.10 ng/mL High <=4.00 [facility] Platelet mean volume Auto (B ld) [Entitic vol]on 07-09-2024 Platelet mean volume (Bld) [Entitic vol] 9.2 fL Low 9.5-13.5 [facility] Platelets Auto (Bld) [#/Vol] on 07-09-2024 Platelets (Bld) [#/Vol] 249 10 3/uL 150-450 [facility] RBC Auto (Bld) [#/Vol]on RBC (Bld) [#/Vol] 4.98 10 6/uL 4.70-6.[address] [facility] Serum or plasma albumin/glob ulin mass ratioon 07-09-2024 Albumin/Globulin [Mass ratio] 1.1 {ratio} [facility] Serum or plasma anion gap de terminationon 07-09-2024 Anion gap [Moles/Vol] 11.2 [facility] or plasma total choles terol/high density lipoprotein (HDL) cholesterol mass kaye 07-09-2024 Cholesterol.total/Cho lesterol in HDL [Mass ratio] 4.5 {ratio} [facility] Comment on above: 3.3 - 4.4 LOW RISK4. 4 - 7.1 AVERAGE RISK7.1 - 11.0 MODERATE RISK>11.0 HIGH RISK XR knee RT 3V - NOT FOR ER U Jan 06-26-2024 XR knee RT 3V - NOT FOR ER USE [facility] [address] [place] [address] XRay Report Signed Patient: Cale Krause MR#: [id number] : 1955 Acct:[id number] Age/Sex: 69 / M ADM Date: 06/26/24 Loc: [facility] Room: Type: [facility] Attending Dr: Ben Murillo II, MD Copies to: Ben Murillo MD Ordering Provider: Ben Murillo MD Date of Service: 06/26/24 XR/XR knee RT 3V - NOT FOR ER USE: Z47.1 - Aftercare following joint replacement surgery RIGHT KNEE - 3 views COMPARISON: 05/13/2024 CLINICAL DATA: Follow-up knee replacement Weightbearing AP, lateral and sunrise views were obtained. A knee prosthesis is again visualized. The hardware appears intact and unchanged from the prior. There are no developing fractures or dislocation. No patellar subluxation is seen. There is a moderate sized knee effusion. There is mild subcutaneous edema. XR/XR knee RT 3V - NOT FOR ER USE IMPRESSION: STABLE KNEE REPLACEMENT. KNEE EFFUSION. Impression dictated by: Toya Nascimento M.D.06/26/2024 3:27 PM Dictation Location: [place] [address] Transcribed By: [facility] 06/26/24 1527 Dictated By: Toya Nascimento MD 06/26/24 1526 Signed By: 06/26/24 1527 Normal [facility] ABO/Rh Retypeon 05-13-2024 ABO/RH Recheck Result Negative Normal [facility] Comment on above: Result Comment: PERF ORMED BY: [address] [address] PATHOLOGIST BATH MIX OPERATOR ISABEL KRUSE M.D. Capillary blood glucose dana urement by glucometer (mass/volume)Ordered By: Ben Murillo on 05-13-2024 Glucose [Mass/Vol] 207 mg/dL Normal [facility] Comment on above: Random Glucose Refer ence Range is dependent on time and content of last meal. Glucose of more than 200 mg/dL in a nonstressed, ambulatory subject supports the diagnosis of Diabetes Mellitus. Result Comment: [facility] Glucose Reference Range is dependent on time and content of last meal. Glucose of more than 200 mg/dL in a nonstressed, ambulatory subject supports the diagnosis of Diabetes Mellitus. PERFORMED BY: [address] [place] [address] PATHOLOGIST BATH MIX OPERATOR ISABEL KRUSE M.D. Performed By: #### G LULS #### Point of Care testing , Glucose Poct Glucometerson 0 05-13-2024 Commemt1 Glu2: Cleaned Meter Normal [facility] Comment on above: Result Comment: PERF ORMED BY: [address] [address] PATHOLOGIST BATH MIX OPERATOR ISABEL KRUSE M.D. Performed By: #### F RUC #### [facility] , #### CBC, BMP #### [facility] [address] [place] [address] Glucose [Mass/Vol] 170 mg/dL Normal [facility] Comment on above: Result Comment: [facility] Glucose Reference Range is dependent on time and content of last meal. Glucose of more than 200 mg/dL in a nonstressed, ambulatory subject supports the diagnosis of Diabetes Mellitus. Performed By: #### F RUC #### [facility] , #### CBC, BMP #### [facility] [address] [place], [place] [id number] [place] Oscar 05-13-2024 L Specimen: [id number] Received: 05/13/24 Status: ELIELT Req Num: [id number] Spec Type: Surgical Subm Dr: Ben Murillo MD Tissues: A Joint/Knee (RT KNEE) Procedures: HE/2, Gross/Micro L4, Decalcification Age/ Patient Sex Location Account Attending Physician Cale Krause 69/M [place] [id number] Ben Murillo MD SPEC NUM: [id number] RECD: 05/13/24 STATUS: SOUT REQ NUM: [id number] ARMIDA: 05/13/24- SUBM DR: Ben Murillo MD ENTERED: 05/13/[address] [facility] [address]: SPEC TYPE: Surgical DEPT: S ORDERED: HE/2, Gross/Micro L4, Decalcification ORDERED: HE/2, Gross/Micro L4, Decalcification Pathological Diagnosis Right knee bone and tissue, total knee arthroplasty: -Severe degenerative osteoarthritis displaying marked articular erosion and near cortical eburnation with mild bony remodeling, at least mild osteophytic degenerations, and with at least focal mild degeneration of the otherwise hypertrophic synovial membrane, consistent with severe degenerative joint disease of the right knee Clinical Information DJD Rt knee Gross Description The specimen is received in formalin, labeled with the patient's name and bone and tissue , and consists of a 16.1 x 13.6 x 2.7 cm aggregate of multiple fragments of beal-white hemorrhagic bone and fibrous soft tissue. The largest fragment is consistent with tibial plateau, measuring 7.4 x 5.2 x 1.4 cm. There is a 2.3 x 2.1 cm focus of granularity on the articular surface of the tibial plateau. There is mild osteophytic lipping over less than 10% of the specimen periphery. Serial sectioning shows yellow spongy bone matrix. A gross photo is included. [employer] Clerk sections are submitted in A1 (bone following decalcification)-A2 (soft tissue). TW Specimen: [id number] Received: 05/13/24 Status: ELIELClementine Richardson Num: [id number] Spec Type: Surgical Subm Dr: Ben Murillo MD Tissues: A Joint/Knee (RT KNEE) Procedures: HE/2, Gross/Micro L4, Decalcification Patient: AbdiCale Zach [id number] (Continued) Specimen: [id number] Received: 05/13/24 (Continued) Signed (signature on file) Shayan Figueroa MD 05/16/24 1858 Specimen: [id number] Received: 05/13/24 Status: ANNA Richardson Num: [id number] Spec Type: Surgical Subm Dr: Ben Murillo MD Tissues: A Joint/Knee (RT KNEE) Procedures: HE/2, Gross/Micro L4, Decalcification Patient: Cale Krause [id number] (Continued) Specimen: [id number] Received: 05/13/24 (Continued) Microscopic Description Microscopic examinations are performed supporting the above interpretation CPT Codes [id number] BONE AND TISSUE Specimen: [id number] Received: 05/13/24 Status: ANNA Richardson Num: [id number] Spec Type: Surgical Subm Dr: Ben Murillo MD Tissues: A Joint/Knee (RT KNEE) Procedures: HE/2, Gross/Micro L4, Decalcification Patient: Cale Krause [id number] (Continued) Signed (signature on file) Kartik-Jarocho Figueroa MD 05/16/24 1858 Normal [facility] No Panel InformationOrdered By: Ben Murillo on 05-13-2024 Bedside Glucose Comment Glu2: cleaned meter [facility] XR knee RT 2Von 05-13-2024 XR knee RT 2V [facility] [place] [address] XRay Report Signed Patient: Cale Krause MR#: [id number] : 1955 Acct:[id number] Age/Sex: 69 / M ADM Date: 05/13/24 Loc: [place] Room: Type: [facility] Attending Dr: Ben Murillo II, MD Copies to: Ben Murillo MD Ordering Provider: Ben Murillo MD Date of Service: 05/13/24 XR/XR knee RT 2V: POST OP 2 views right knee plain film COMPARISON: 04/16/2024 HISTORY: Postop right knee arthroplasty ACUTE FINDINGS: No acute findings DEGENERATIVE CHANGE: Unremarkable SOFT TISSUE FINDINGS: Anterior postsurgical soft tissue changes JOINT EFFUSION: None POSTOP CHANGES: Unremarkable hardware BONE MINERALIZATION: Adequate XR/XR knee RT 2V IMPRESSION: Uncomplicated right knee arthroplasty Impression dictated by: Tunde Main M.D.05/13/2024 10:44 AM Dictation Location: [facility] Transcribed By: [facility] 05/13/24 1044 Dictated By: Tunde Main DO 05/13/24 1042 Signed By: 05/13/24 1044 Normal [facility] XR tibia fibula LT 2V*on XR tibia fibula LT 2V* [facility] [address] [place] [address] XRay Report Signed Patient: Cale Krause MR#: [id number] : 1955 Acct:[id number] Age/Sex: 69 / M ADM Date: 05/07/24 Loc: [facility] Room: Type: [facility] Attending Dr: Ben Murillo II, MD Copies to: Ben Murillo MD Ordering Provider: Ben Murillo MD Date of Service: 05/07/24 XR/XR tibia fibula LT 2V*: M17.12 - Unilateral primary osteoarthritis, left knee ([id number]) XR/XR femur LT 2V*: M17.12 - Unilateral primary osteoarthritis, left knee XR femur LT 2V*, XR tibia fibula LT 2V* 05/07/2024 1:57 PM SIGNS AND SYMPTOMS: Preop partial knee arthroplasty PROTOCOL: Frontal radiographs of the bilateral femurs and bilateral tibia and fibula COMPARISON: None FINDINGS: The joint spaces of the hips are preserved. The bones are in anatomic alignment. There is significant narrowing of the weightbearing joint spaces, greatest medially. The tibia and fibula are grossly intact bilaterally. The ankle mortises are intact. XR/XR femur LT 2V* IMPRESSION: There is significant narrowing of the weightbearing joint spaces, greatest medially. No acute bony injury or malalignment. Impression dictated by: Arnulfo Harris M.D.05/07/2024 4:18 PM Dictation Location: [facility] Transcribed By: JAYME 05/07/24 1618 Dictated By: Arnulfo Harris II, MD 05/07/24 1617 Signed By: 05/07/24 1618 Normal [facility] Automated basophil %Ordered By: Ben Murillo on 05-02-2024 Basophils/100 WBC (Bld) 0.8 % Normal . [facility] Comment on above: Performed By: #### F RUC #### [facility] , #### CBC, BMP #### [address] Automated basophil countOrde red By: Ben Murillo on 05-02-2024 Basophils (Bld) [#/Vol] 0.1 10*3/uL Normal 0.0-0.2 [facility] Comment on above: Result Comment: PERF ORMED BY: [place] [address] PATHOLOGIST BATH MIX OPERATOR ISABEL KRUSE M.D. Performed By: #### F RUC #### [facility] , #### CBC, BMP #### [address] Automated blood monocyte cou ntOrdered By: Ben Murillo on 05-02-2024 Monocytes (Bld) [#/Vol] 0.7 10*3/uL Normal 0.0-0.8 [facility] Comment on above: Performed By: #### F RUC #### [facility] , #### CBC, BMP #### [address] Automated eosinophil %Ordere d By: Ben Murillo on 05-02-2024 Eosinophils/100 WBC (Bld) 6.4 % Normal . [facility] Comment on above: Performed By: #### F RUC #### [facility] , #### CBC, BMP #### [facility] [address] [place] [address] Automated eosinophil countOr dered By: Ben Murillo on 05-02-2024 Eosinophils (Bld) [#/Vol] 0.5 10*3/uL High 0.0-0.45 [facility] Comment on above: Performed By: #### F RUC #### [facility] , #### CBC, BMP #### [address] Automated monocyte %Ordered By: Ben Murillo on 05-02-2024 Monocytes/100 WBC (Bld) 9.0 % Normal . [facility] Comment on above: Performed By: #### F RUC #### [facility] , #### CBC, BMP #### [facility] [address] [place] [address] Automated neutrophil %Ordere d By: Ben Murillo on 05-02-2024 Neutrophils/100 WBC (Bld) 61.1 % Normal . [facility] Comment on above: Performed By: #### F RUC #### [facility] , #### CBC, BMP #### [address] Basic Metabolic Panelon GFR/1.73 sq M.predicted MDRD (S/P/Bld) [Vol rate/Area] mL/min/{1.73_m2} Normal [facility] Comment on above: Performed By: #### F RUC #### [facility] , #### CBC, BMP #### [address] Bilirubin Test strip Ql (U)O rdered By: Ben Murillo on 05-02-2024 Bilirubin Ql (U) Negative Negative [facility] Calcium [Mass/volume] in Ser um or PlasmaOrdered By: Ben Murillo on 05-02-2024 Calcium [Mass/Vol] 9.3 mg/dL Normal 8.6-10.3 [facility] Comment on above: Result Comment: PERF ORMED BY: [place] [address] PATHOLOGIST BATH MIX OPERATOR ISABEL KRUSE M.D. Performed By: #### F RUC #### [facility] , #### CBC, BMP #### [place] [address] [place] Carbon dioxide, total [Moles /volume] in Serum or PlasmaOrdered By: Ben Murillo on 05-02-2024 CO2 [Moles/Vol] 29.6 mmol/L Normal 21.0-31.0 [facility] Comment on above: Performed By: #### F RUC #### [facility] , #### CBC, BMP #### [address] Chloride [Moles/volume] in S fior or PlasmaOrdered By: Ben Murillo on 05-02-2024 Chloride [Moles/Vol] 102 mmol/L Normal 98-[address] [facility] Comment on above: Performed By: #### F RUC #### [facility] , #### CBC, BMP #### [address] Color of Urine by AutoOrdere d By: Ben Murillo on 05-02-2024 Color (U) Light-yellow Normal Yellow [facility] Comment on above: Order Comment: Name Collection Type:: Clean-Voided Midstream Performed By: #### U A #### [address] Complete Blood Count Auto Di ffon 05-02-2024 Mean Corpuscular HGB Conc 34.3 g/dL Normal 32.5-35.6 [facility] Comment on above: Performed By: #### F RUC #### [facility] , #### CBC, BMP #### [place] [address] [place] NRBC% 0.1 /100{WBC} Normal 0-0.5 [facility] Comment on above: Performed By: #### F RUC #### [facility] , #### CBC, BMP #### [place] [address] [place] Creatinine [Mass/volume] in Serum or PlasmaOrdered By: Ben Murillo on 05-02-2024 Creatinine [Mass/Vol] 0.91 mg/dL Normal 0.70-1.30 [facility] Comment on above: Performed By: #### F RUC #### [facility] , #### CBC, BMP #### [facility] [address] [place] [address] [place] ECG 12 lead ECGon 05-02-2024 ECG 12 lead ECG [facility] Main [place] [address] [place] [address] Electrocardiograph Report Signed Patient: Cale Krause MR#: [id number] : 1955 Acct:[id number] Age/Sex: 69 / M ADM Date: 05/02/24 Loc: Room: Type: [facility] Attending Dr: Ben Murillo II, MD Ordering Provider: Ben Murillo MD Date of Service: 05/02/2403/21/1026 ECG/ECG 12 lead ECG: RIGHT TOTAL KNEE ARTHROPLASTY Copies to: Test Reason : Blood Pressure : / mmHG Vent. Rate : 058 BPM Atrial Rate : 058 BPM P-R Int : 214 ms QRS Dur : 104 ms QT Int : 450 ms P-R-T Axes : 054 005 -12 degrees QTc Int : 441 ms Sinus bradycardia with 1st degree AV block Minimal voltage criteria for LVH, may be normal variant T wave abnormality, consider inferior ischemia Abnormal ECG When compared with ECG of 20-SEP-2022 13:57, T wave inversion now evident in Inferior leads Confirmed by ISAURO OAKLEY [facility], LANCE ([id number]) on 05/02/2024 5:23:00 PM Referred By: CHIDI Electronically Signed By:LANCE SANCHEZ MD [facility] Transcribed By: ALBA Signed By Lance Sanchez MD, FACC 05/02/24 1723 Normal [facility] Erythrocyte distribution wid th [Ratio] by Automated countOrdered By: Ben Murillo on 05-02-2024 Erythrocyte distribution width (RBC) [Ratio] 14.4 % Normal 12.0-14.8 [facility] Comment on above: Performed By: #### F RUC #### [facility] , #### CBC, BMP #### [facility] [address] [place] [address] [place] Erythrocytes [#/volume] in B lood by Automated countOrdered By: Ben Murillo on 05-02-2024 RBC (Bld) [#/Vol] 4.77 10*6/uL Normal 3.90-5.[address] [facility] Comment on above: Performed By: #### F RUC #### [facility] , #### CBC, BMP #### [facility] [address] [place] [address] [place] Fructosamineon 05-02-2024 Fructosamine 271 umol/L Normal 0-285 [facility] Comment on above: Result Comment: Publ ished reference interval for apparently healthy subjects between age 20 and 60 is 205 - 285 umol/L and in a poorly controlled diabetic population is 228 - 563 umol/L with a mean of 396 umol/L. Performed at: [facility] [address] [place], [place] [id number] Assistant Hall Director: Sea Andrade PhD, Phone: [phone] PERFORMED BY: [place] [address] PATHOLOGIST BATH MIX OPERATOR ISABEL KRUSE M.D. Performed By: #### F RUC #### [facility] , #### CBC, BMP #### [facility] [address] [place] [address] Fructosamine [Moles/volume] in Serum or PlasmaOrdered By: Ben Murillo on 05-02-2024 Fructosamine [Moles/Vol] 271 umol/L 0-285 [facility] Comment on above: Published reference interval for apparently healthysubjects between age 20 and 60 is 205 - 285 umol/L and in apoorly controlled diabetic population is 228 - 563 umol/Lwith a mean of 396 umol/L.Performed at: [facility] [place], [place] [id number] Director: Sea Andrade PhD, Phone: [phone] Glucose [Mass/volume] in Ser um or PlasmaOrdered By: Ben Murillo on 05-02-2024 Glucose [Mass/Vol] 188 mg/dL High 70-100 [facility] Comment on above: ADA recommended refe rence rangeRandom Glucose Reference Range is dependent on time and content of last meal. Glucose of more than 200 mg/dL in a nonstressed, ambulatory subject supports the diagnosis of Diabetes Mellitus. Result Comment: [place] [facility] Glucose Reference Range is dependent on time and content of last meal. Glucose of more than 200 mg/dL in a nonstressed, ambulatory subject supports the diagnosis of Diabetes Mellitus. ADA recommended reference range Performed By: #### F RUC #### [facility] , #### CBC, BMP #### [facility] [address] [place] [address] Glucose [Mass/volume] in Uri ne by Test stripOrdered By: Ben Murillo on 05-02-2024 Glucose Test strip (U) [Mass/Vol] 100 mg/dL High Normal [facility] Hematocrit [Volume Fraction] of Blood by Automated countOrdered By: Ben Murillo on 05-02-2024 Hematocrit (Bld) [Volume fraction] 42.8 % Normal 38.8-50.0 [facility] Comment on above: Performed By: #### F RUC #### [facility] , #### CBC, BMP #### [facility] [address] [place] [address] Hemoglobin Test strip Ql (U) Ordered By: Ben Murillo on 05-02-2024 Hemoglobin Ql (U) Negative Negative [facility] Hemoglobin [Mass/volume] in BloodOrdered By: Ben Murillo on 05-02-2024 Hemoglobin (Bld) [Mass/Vol] 14.7 g/dL Normal 13.0-17.0 [facility] Comment on above: Performed By: #### F RUC #### [facility] , #### CBC, BMP #### [place] [address] [place] Ketones [Presence] in Urine by Test stripOrdered By: Ben Murillo on 05-02-2024 Ketones Ql (U) Negative Normal Negative [facility] Comment on above: Order Comment: Name Collection Type:: Clean-Voided Midstream Performed By: #### U A #### [place] [address] [place] Leukocyte esterase [Presence ] in Urine by Test stripOrdered By: Ben Murillo on 05-02-2024 Leukocyte esterase Test strip Ql (U) Negative Normal Negative [facility] Comment on above: Order Comment: Name Collection Type:: Clean-Voided Midstream Performed By: #### U A #### [place] [address] [place] Leukocytes [#/volume] correc stanley for nucleated erythrocytes in Blood by Automated counOrdered By: Ben Murillo on 05-02-2024 WBC corrected for nucl RBC Auto (Bld) [#/Vol] 7.8 10*3/uL 4.1-10.5 [facility] Leukocytes [#/volume] in Blo od by Automated countOrdered By: Ben Murillo on 05-02-2024 WBC (Bld) [#/Vol] 7.8 10*3/uL Normal 4.1-10.5 [facility] Comment on above: Performed By: #### F RUC #### [facility] , #### CBC, BMP #### [facility] [address] [place] [address] [place] Lymphocytes [#/volume] in Bl ood by Automated countOrdered By: Ben Murillo on 05-02-2024 Lymphocytes (Bld) [#/Vol] 1.8 10*3/uL Normal 1.00-4.8 [facility] Comment on above: Performed By: #### F RUC #### [facility] , #### CBC, BMP #### [place] [address] [place] Lymphocytes/100 leukocytes i n Blood by Automated countOrdered By: Ben Murillo on 05-02-2024 Lymphocytes/100 WBC (Bld) 22.7 % Normal . [facility] Comment on above: Performed By: #### F RUC #### [facility] , #### CBC, BMP #### [address] MCH [Entitic mass] by Automa stanley countOrdered By: Ben Murillo on 05-02-2024 MCH (RBC) [Entitic mass] 30.8 pg Normal 27.5-35.2 [facility] Comment on above: Performed By: #### F RUC #### [facility] , #### CBC, BMP #### [address] MCHC Auto (RBC) [Mass/Vol]Or dered By: Ben Murillo on 05-02-2024 MCHC (RBC) [Mass/Vol] 34.3 g/dL 32.5-35.6 [facility] MCV [Entitic volume] by Auto mated countOrdered By: Ben Murillo on 05-02-2024 MCV (RBC) [Entitic vol] 89.8 fL Normal 83.5-101 [facility] Comment on above: Performed By: #### F RUC #### [facility] , #### CBC, BMP #### [facility] [address] [place] [address] Neutrophils [#/volume] in Bl ood by Automated countOrdered By: Ben Murillo on 05-02-2024 Neutrophils (Bld) [#/Vol] 4.8 10*3/uL Normal 1.8-7.7 [facility] Comment on above: Performed By: #### F RUC #### [facility] , #### CBC, BMP #### [address] Nitrite Test strip Ql (U)Ord ered By: Ben Murillo on 05-02-2024 Nitrite Ql (U) Negative Negative [facility] No Panel InformationOrdered By: Ben Murillo on 05-02-2024 Estimated GFR (CKD-EPI) > 60.0 mL/Min [facility] Creatinine Clearance (Chem N/A [facility] Nucleated erythrocytes [Pres ence] in Blood by Automated countOrdered By: Ben Murillo on 05-02-2024 Nucleated RBC Auto Ql (Bld) 0.1 /100{WBC} 0-0.5 [facility] PST Type and Screenon 2023 ABO and Rh group Nom (Bld) Blood group A Rh(D) negative Normal [facility] Comment on above: Order Comment: Date of Surgery: [id number] Result Comment: PERF ORMED BY: [place] [address] PATHOLOGIST BATH MIX OPERATOR ISABEL KRUSE M.D. Platelet mean volume [Entiti c volume] in Blood by Automated countOrdered By: Ben Murillo on 05-02-2024 Platelet mean volume (Bld) [Entitic vol] 8.2 fL Normal 6.6-10.1 [facility] Comment on above: Performed By: #### F RUC #### [facility] , #### CBC, BMP #### [facility] [address] [place] [address] [place] Platelets [#/volume] in Bloo d by Automated countOrdered By: Ben Murillo on 05-02-2024 Platelets (Bld) [#/Vol] 213 10*3/uL Normal 150-450 [facility] Comment on above: Performed By: #### F RUC #### [facility] , #### CBC, BMP #### [facility] [address] [place] [address] [place] Potassium [Moles/volume] in Serum or PlasmaOrdered By: Ben Murillo on 05-02-2024 Potassium [Moles/Vol] 3.6 mmol/L Normal 3.5-5.1 [facility] Comment on above: Performed By: #### F RUC #### [facility] , #### CBC, BMP #### [facility] [address] Protein Test strip (U) [Mass /Vol]Ordered By: Ben Murillo on 05-02-2024 Protein (U) [Mass/Vol] Negative Negative [facility] Serum or plasma anion gap de terminationOrdered By: Ben Murillo on 05-02-2024 Anion gap [Moles/Vol] 11.0 mmol/L Normal 6.0-15.0 [facility] Comment on above: Performed By: #### F RUC #### [facility] , #### CBC, BMP #### [facility] [address] Sodium [Moles/volume] in Ser um or PlasmaOrdered By: Ben Murillo on 05-02-2024 Sodium [Moles/Vol] 139 mmol/L Normal 136-145 [facility] Comment on above: Performed By: #### F RUC #### [facility] , #### CBC, BMP #### [facility] [address] Specific gravity Test strip (U) [Rel density]Ordered By: Ben Murillo on 05-02-2024 Specific gravity (U) [Rel density] 1.018 1.001-1.03 0 [facility] Urea nitrogen [Mass/volume] in Serum or PlasmaOrdered By: Ben Murillo on 05-02-2024 Urea nitrogen [Mass/Vol] 20 mg/dL Normal 7-25 [facility] Comment on above: Performed By: #### F RUC #### [facility] , #### CBC, BMP #### [facility] [address] Urinalysison 05-02-2024 Bilirubin,Urine Negative Normal Negative [facility] Comment on above: Order Comment: Name Collection Type:: Clean-Voided Midstream Performed By: #### U A #### [address] Glucose Ql (U) 100 mg/dL High Normal [facility] Comment on above: Order Comment: Name Collection Type:: Clean-Voided Midstream Performed By: #### U A #### [address] Nitrite,Urine Negative Normal Negative [facility] Comment on above: Order Comment: Name Collection Type:: Clean-Voided Midstream Performed By: #### U A #### [address] Occult Blood,Urine Negative Normal Negative [facility] Comment on above: Order Comment: Name Collection Type:: Clean-Voided Midstream Result Comment: PERF ORMED BY: [place] [address] PATHOLOGIST BATH MIX OPERATOR ISABEL KRUSE M.D. Performed By: #### U A #### [address] Protein,Urine Negative Normal Negative [facility] Comment on above: Order Comment: Name Collection Type:: Clean-Voided Midstream Performed By: #### U A #### [address] Specificy [place],Urine 1.018 Normal 1.001-1.03 0 [facility] Comment on above: Order Comment: Name Collection Type:: Clean-Voided Midstream Performed By: #### U A #### [address] Urobilinogen,Urine Normal Normal Normal [facility] Comment on above: Order Comment: Name Collection Type:: Clean-Voided Midstream Performed By: #### U A #### [address] Urine appearanceOrdered By: Ben Murillo on 05-02-2024 Appearance (U) Clear Normal Clear [facility] Comment on above: Order Comment: Name Collection Type:: Clean-Voided Midstream Performed By: #### U A #### [facility] [address] [place] [id number] [facility] Urobilinogen Test strip (U) [Mass/Vol]Ordered By: Ben Murillo on 05-02-2024 Urobilinogen (U) [Mass/Vol] Normal mg/dL Normal [facility] pH of Urine by Test stripOrd ered By: Ben Murillo on 05-02-2024 pH (U) 5.5 [pH] Normal 5.0-9.0 [facility] Comment on above: Order Comment: Name Collection Type:: Clean-Voided Midstream Performed By: #### U A #### [facility] [address] [place] [id number] [facility] XR knee RT 4V*on 04-16-2024 XR knee RT 4V* [facility] [address] [place] [id number] XRay Report Signed Patient: Cale Krause MR#: [id number] : 1955 Acct:[id number] Age/Sex: 69 / M ADM Date: 04/16/24 Loc: [facility] Room: Type: [facility] Attending Dr: Ben Murillo II, MD Copies to: Ben Murillo MD Ordering Provider: Ben Murillo MD Date of Service: 04/16/24 XR/XR knee RT 4V*: M25.561 - Pain in right knee ([id number]) XR/XR pelvis 1-2V: M25.561 - Pain in right knee Single view of the pelvis plain film HISTORY: Medial right knee pain COMPARISON: None ACUTE FINDINGS: None BONY ALIGNMENT: Adequate SOFT TISSUES: Unremarkable DEGENERATIVE CHANGE:Unremarkable hips mild SI joint degeneration INTRAPELVIC STRUCTURES: Unremarkable POSTSURGICAL CHANGES:None XR/XR pelvis 1-2V IMPRESSION:Unremarkable hips. Mild SI joint degeneration 4 views right knee degenerative tricompartmental degenerative changes with joint space narrowing and marginal spurring. Mild patellar subluxation. Moderate joint effusion acute bony findings. Unremarkable soft tissues. IMPRESSION: Extensive right knee degeneration. Impression dictated by: Tunde Main M.D.04/16/2024 3:51 PM Dictation Location: [place] [address] Transcribed By: [facility] 04/16/24 1551 Dictated By: Tunde Main DO 04/16/24 1549 Signed By: 04/16/24 1551 Normal [facility] A1C with Estimated Average G jet 03-27-2024 Glucose [Mass/Vol] 146 mg/dL Normal [facility] Comment on above: Result Comment: PERF ORMED BY: [place] [address] PATHOLOGIST BATH MIX OPERATOR ISABEL KRUSE M.D. Performed By: #### H GB, CUMRSA, ALB, [id number], A1C [facility] eA #### [address] #### NICOTINE #### [facility] , Albumin Levelon 03-27-2024 Albumin [Mass/Vol] 4.5 g/dL Normal 3.5-5.7 [facility] Comment on above: Performed By: #### H GB, CUMRSA, ALB, [id number], A1C WT eA #### [address] #### NICOTINE #### [facility] , Albumin [Mass/volume] in Ser um or Plasma by Bromocresol green (BCG) dye binding methoOrdered By: Ben Murillo on 03-27-2024 Albumin BCG dye [Mass/Vol] 4.5 g/dL 3.5-5.7 [facility] Cotinine [Mass/volume] in Se rum or PlasmaOrdered By: Ben Murillo on 03-27-2024 Cotinine [Mass/Vol] <1.0 ng/mL . [facility] Comment on above: This test was develo ped and its performance characteristicsdetermined by [employer]. It has not been cleared orapproved by the Food and Drug Administration.Cotinine levels greater than 20.0 are consistent with theuse of tobacco or tobacco cessation products.Performed at: [address] [id number] Director: Mark Zabala MD, Phone: [phone] Glucose mean value [Mass/vol ume] in Blood Estimated from glycated hemoglobinOrdered By: Ben Murillo on 03-27-2024 Average glucose Estimated from glycated hemoglobin (Bld) [Mass/Vol] 146 mg/dL [facility] Hemoglobin A1c percentageOrd ered By: Ben Murillo on 03-27-2024 HbA1c (Bld) [Mass fraction] 6.7 % High 4.3-5.6 [facility] Comment on above: Increased risk for d iabetes: 5.7 - 6.4diabetes: >6.4glycemic control for adults with diabetes: <7.0 Result Comment: Incr eased risk for diabetes: 5.7 - 6.4 diabetes: >6.4 glycemic control for adults with diabetes: <7.0 Performed By: #### H GB, CUMRSA, ALB, [id number], A1C WTH eA #### [address] #### NICOTINE #### [facility] , Hemoglobin [Mass/volume] in BloodOrdered By: Ben Murillo on 03-27-2024 Hemoglobin (Bld) [Mass/Vol] 16.0 g/dL Normal 13.0-17.0 [facility] Comment on above: Result Comment: PERF ORMED BY: [place] [address] PATHOLOGIST BATH MIX OPERATOR ISABEL KRUSE M.D. Performed By: #### H GB, CUMRSA, ALB, [id number], A1C WTH eA #### [address] #### NICOTINE #### [facility] , MRSA Cultureon 03-27-2024 MRSA Culture No MRSA Isolated 2 D ays PERFORMED BY: [place] [address] PATHOLOGIST BATH MIX OPERATOR ISABEL KRUSE M.D. Normal [facility] Comment on above: Performed By: #### F RUC #### [facility] , #### CBC, BMP #### [facility] [address] Nicotine [Mass/volume] in Se rum or PlasmaOrdered By: Ben Murillo on 03-27-2024 Nicotine [Mass/Vol] <1.0 ng/mL . [facility] Comment on above: This test was develo ped and its performance characteristicsdetermined by [facility]. It has not been cleared orapproved by the Food and Drug Administration.Nicotine levels greater than 2.0 are consistent with theuse of tobacco or tobacco cessation products. Nicotine/Cotinine Bloodon Cotinine, Blood <1.0 Normal . [facility] Comment on above: Result Comment: This test was developed and its performance characteristics determined by [facility]. It has not been cleared or approved by the Food and Drug Administration. Cotinine levels greater than 20.0 are consistent with the use of tobacco or tobacco cessation products. Performed at: [address] [id number] Assistant Hall Director: Mark Zabala MD, Phone: [phone] PERFORMED BY: [place] [address] PATHOLOGIST BATH MIX OPERATOR ISABEL KRUSE M.D. Performed By: #### F RUC #### [facility] , #### CBC, BMP #### [address] Nicotine, Blood <1.0 Normal . [facility] Comment on above: Result Comment: This test was developed and its performance characteristics determined by [employer] [employer]. It has not been cleared or approved by the Food and Drug Administration. Nicotine levels greater than 2.0 are consistent with the use of tobacco or tobacco cessation products. Performed By: #### F RUC #### [facility] , #### CBC, BMP #### [facility] [address] [place] [address] [place] Vitamin D 25 Hydroxy Totalon 03-27-2024 Vitamin D 25 Hydroxy Total 30.5 ng/mL Normal 30-100 [facility] Comment on above: Result Comment: JORGITO MIN D STATUS 25(OH)VITAMIN D RANGE (ng/mL) Deficient <20 Insufficient 20 to <30 Sufficient 30 to 100 Reference: Luis F GASTON,Francia CONTRERAS, Guy HATCH, et al. Evaluation,treatment, and prevention of vitamin D deficiency; an Endocrine Society clinical practice guideline. JCEM. 2010; 96(7):1911-. PERFORMED BY: [place] [address] PATHOLOGIST BATH MIX OPERATOR ISABEL KRUSE M.D. Performed By: #### H GB, CUMRSA, ALB, [id number], A1C WTH #### [address] #### NICOTINE #### [facility] , Vitamin D+Metabolites [Mass/ volume] in Serum or PlasmaOrdered By: Ben Murillo on 03-27-2024 Vitamin D+Metabolites [Mass/Vol] 30.5 ng/mL 30-100 [facility] Comment on above: VITAMIN D STATUS 25( OH)VITAMIN D RANGE (ng/mL) Deficient <20 Insufficient 20 to <30Sufficient 30 to 100Reference: Luis F GASTON,Francia CONTRERAS, Guy HATCH, et al. Evaluation,treatment, and prevention of vitamin D deficiency; an Endocrine Society clinical practice guideline. JCEM. 2010; 96(7):1911-. Wound methicillin resistant Staphylococcus aureus (MRSA) cultureOrdered By: Ben Murillo on 03-27-2024 MRSA isol Org specific cx Ql (Unsp spec) No MRSA Isolated 2 Days [facility] Glucose mean value [Mass/vol ume] in Blood Estimated from glycated hemoglobinon 02-21-2024 Average glucose Estimated from glycated hemoglobin (Bld) [Mass/Vol] 177 mg/dL [facility] - Hematology and Cell countson 02-21-2024 HbA1c (Bld) [Mass fraction] 7.8 % High 4.5-6.2 [facility] Comment on above: ADA RECOMMENDED LIMI T 4.0 - 6.0ADA THERAPEUTIC TARGET < 7.0ACTION SUGGESTED> 7.0 Comprehensive Metabolic Pane oscar 08-21-2023 Albumin [Mass/Vol] 3.337752 g/dL Normal 3.4-5.0 g/dL [facility] Other ALP [Catalytic activity/Vol] 50 U/L Normal 46-116 U/L [facility] Other ALT [Catalytic activity/Vol] 21 U/L Normal 16-63 U/L [facility] Other Anion gap [Moles/Vol] 10.1 mmol/L No rt [employer] Other AST [Catalytic activity/Vol] 14 U/L Low 15-37 U/L [facility] Other Bilirubin [Mass/Vol] 0.8629485 mg/dL Normal 0.2- 1.0 mg/dL [facility] Other Calcium [Mass/Vol] 9.4896571 mg/dL Normal 8.5-10 .1 mg/dL [facility] Other Chloride [Moles/Vol] 96 mmol/L Low 98-107 mmol/L [facility] Other CO2 [Moles/Vol] 32.40446089 mmol/L High 21.0-3 2.0 mmol/L [facility] Other Creatinine [Mass/Vol] 1.62746220 mg/dL Normal 0. 70-1.30 mg/dL [facility] Other Glucose [Mass/Vol] 187 mg/dL High 74-106 mg/dL [facility] Other Potassium [Moles/Vol] 3.52137601 mmol/L Normal 3 .5-5.1 mmol/L [facility] Other Protein [Mass/Vol] 7.817039 g/dL Normal 6.4-8.2 g/dL [facility] Other Sodium [Moles/Vol] 135 mmol/L Low 136-145 mmol/L [facility] Other Urea nitrogen [Mass/Vol] 20.0295926 mg/dL High 7.0-18.0 mg/dL [facility] Other Urea nitrogen/Creatinine [Mass ratio] 19.4 mg/mg [facility] Other Comprehensive Metabolic Panel 3.6 g/dL [facility] Other Comprehensive Metabolic Panel 1.1 [facility] Other Comprehensive Metabolic Panel see note [facility] Other Comprehensive Metabolic Panel >60 >=60 [facility] Other UA RANDOM W/MICROSCOPICon Clarity (U) CLEAR CLEAR [facility] Other Color (U) LT. YELLOW YELLOW [facility] Other Ketones Ql (U) Negative NEGATIVE mg/dL [facility] Other Leukocyte esterase Test strip Ql (U) Negative NEGATIVE [facility] Other pH (U) 5.5 [pH] 5.0-9.0 [facility] Other UA RANDOM W/MICROSCOPIC NONE SEEN #/HPF None Seen #/HPF [facility] Other UA RANDOM W/MICROSCOPIC 1.020 1.005-1.02 5 [facility] Other UA RANDOM W/MICROSCOPIC Negative NEGATIVE [facility] Other UA RANDOM W/MICROSCOPIC 0.2 EU/dL 0.2-1.0 EU/dL [facility] Other UA RANDOM W/MICROSCOPIC NONE SEEN NONE SEEN [facility] Other UA RANDOM W/MICROSCOPIC NONE SEEN #/LPF NONE SEEN #/LPF [facility] Other UA RANDOM W/MICROSCOPIC RARE [facility] Other XR knee BI 4Von 07-11-2023 XR knee BI 4V [facility] Other XR knee BI 4V [facility] Main [facility] Other XR knee BI 4V [address] [place] [address] [employer] [place] [address] [address] [facility] [employer] Other XR knee BI 4V XRay Report [facility] Other XR knee BI 4V Signed [place] [employer] Other XR knee BI 4V Patient: Cale Krause MR#: [id number] [place] [employer] Other XR knee BI 4V : 1955 Acct:[id number] [place] [employer] Other XR knee BI 4V Age/Sex: 68 / M ADM Date: 07/11/23 [place] [employer] Other XR knee BI 4V Loc: [facility] Room: Type : [facility] [employer] Other XR knee BI 4V Attending Dr: Ben Murillo II, MD [place] [employer] Other XR knee BI 4V Copies to: Ben Muirllo MD [facility] Other XR knee BI 4V Ordering Provider: Sissy Murillo MD [place] [employer] Other XR knee BI 4V Date of Service: 07/11/23 [facility] Other XR knee BI 4V [id number]) XR/XR knee BI 4V: Pain in right knee;Pain in left knee [facility] Other XR knee BI 4V ([id number]) XR/XR pelvis 1-2V: Pain in right knee;Pain in left knee [facility] Other XR knee BI 4V AP PELVIS: Bilateral knee series 4 views each [facility] Other XR knee BI 4V CLINICAL HISTORY: Bilateral knee pain for months. [facility] Other XR knee BI 4V COMPARISON: None [facility] Other XR knee BI 4V Pelvis: There is talat pected sclerosis involving the left femoral head without femoral head collapse. [facility] Other XR knee BI 4V Mild degenerative ch anges of both hips. No acute bony process is seen. [facility] Other XR knee BI 4V Bilateral knee serie s: Severe degenerative changes of both knees with weightbearing and [facility] Other XR knee BI 4V patellofemoral joint space narrowing. No acute bony process is seen. There are associated joint [facility] Other XR knee BI 4V effusions. [facility] Other XR knee BI 4V X R/XR pelvis 1-2V [facility] Other XR knee BI 4V IMPRESSION: [employer] Other XR knee BI 4V SUSPECTED SCLEROSIS INVOLVING THE LEFT FEMORAL HEAD WITHOUT FEMORAL HEAD COLLAPSE. UNDERLYING [facility] Other XR knee BI 4V AVASCULAR NECROSIS C ANNOT BE EXCLUDED. [facility] Other XR knee BI 4V SEVERE DEGENERATIVE CHANGES OF BOTH KNEES WITHOUT ACUTE BONY PROCESS. [facility] Other XR knee BI 4V Impression dictated by: Francisco Pate Jr., Radha07/11/2023 4:17 PM [facility] Other XR knee BI 4V Dictation Location: [place] [address] [facility] Other XR knee BI 4V Transcribed By: JAYME 07/11/23 [facility] Other XR knee BI 4V Dictated By: Francisco Pate Jr, DO 07/11/23 [facility] Other XR knee BI 4V Signed By: [facility] Other XR knee BI 4V 07/11/23 1617 [facility] [employer] Other In office Testingon 01-20-20 In office Testing [id number]:[id number] Normal [facility] CBC AUTO DIFFon 01-17-2023 BASO # 0.1 103/ul Normal 0.0-0.1 [facility] Comment on above: Performed By: #### P SASC #### [facility] [address] [place] [address] Dr. Dileep Figueroa Basophils/100 WBC (Bld) 1.4 % Normal 0.2-2.0 [facility] Comment on above: Performed By: #### P SASC #### [facility] [address] [place] [address] [address] Dileep Figueroa EO # 0.4 103/ul Normal 0.0-0.7 [facility] Comment on above: Performed By: #### P SASC #### [facility] [address] [place] [address] Dr. Dileep Figueroa Eosinophils/100 WBC (Bld) 5.6 % Normal 0.9-7.0 [facility] Comment on above: Performed By: #### P SASC #### [facility] [address] [place] [address] [address] Dileep Figueroa Erythrocyte distribution width (RBC) [Ratio] 13.7 % Normal 11.0-15.0 [facility] Comment on above: Performed By: #### P SASC #### [facility] [address] [place] [address] Dr. Dileep Figueroa Hematocrit (Bld) [Volume fraction] 45.0 % Normal 42.0-54.0 [facility] Comment on above: Performed By: #### P SASC #### [facility] [address] [place] [address] Dr. Dileep Figueroa Hemoglobin (Bld) [Mass/Vol] 15.9 g/dL Normal 14.0-18.0 [facility] Comment on above: Performed By: #### P SASC #### [facility] [address] [place] [address] [address] Dileep Figueroa IG # 0.06 10e3/ul Critically high 0.00-0.03 [facility] Comment on above: Performed By: #### P SASC #### [facility] [address] [place] [address] [address] Dileep Figueroa IG % 0.8 % Critically high 0.0-0.5 [facility] Comment on above: Performed By: #### P SASC #### [facility] [address] [place] [address] [address] Dileep Figueroa LYMPH # 2.3 103/ul Normal 1.2-3.8 [facility] Comment on above: Performed By: #### P SASC #### [facility] [address] [place] [address] [address] Dileep Figueroa Lymphocytes/100 WBC (Bld) 30.0 % Normal 20.5-60.0 [facility] Comment on above: Performed By: #### P SASC #### [facility] [address] [place] [address] Dr. Dileep Figueroa MCH (RBC) [Entitic mass] 29.9 pg Normal 25.9-34.0 [facility] Comment on above: Performed By: #### P SASC #### [facility] [address] [place] [address] [address] Dileep Figueroa MCHC (RBC) [Mass/Vol] 35.3 g/dL Critically high 29.9-35.2 [facility] Comment on above: Performed By: #### P SASC #### [facility] [address] [place] [address] [address] Dileep Figueroa MCV (RBC) [Entitic vol] 84.6 fL Normal 80.0-94.0 [facility] Comment on above: Performed By: #### P SASC #### [facility] [address] [place] [address] [address] Dileep Figueroa MONO # 0.8 103/ul Normal 0.3-0.8 [facility] Comment on above: Performed By: #### P SASC #### [facility] [address] [place] [address] Dr. Dileep Figueroa Monocytes/100 WBC (Bld) 10.2 % Normal 1.7-12.0 [facility] Comment on above: Performed By: #### P SASC #### [facility] [address] [place] [address] Dr. Dileep Figueroa NEUT # 4.1 103/ul Normal 1.4-6.5 [facility] Comment on above: Performed By: #### P SASC #### [facility] [address] [place] [address] Dr. Dileep Figueroa Neutrophils/100 WBC (Bld) 52.0 % Normal 43.0-75.0 [facility] Comment on above: Performed By: #### P SASC #### [facility] [address] [place] [address] Dr. Dileep Figueroa Platelet mean volume (Bld) [Entitic vol] 9.7 fL Normal 9.5-13.5 [facility] Comment on above: Performed By: #### P SASC #### [facility] [address] [place] [address] Dr. Dileep Figueroa PLT 203 103/ul Normal 150-450 [facility] Comment on above: Performed By: #### P SASC #### [facility] [address] [place] [address] Dr. Dileep Figueroa RBC 5.32 106/ul Normal 4.70-6.10 [facility] Comment on above: Performed By: #### P SASC #### [facility] [address] [place] [address] Dr. Dileep Figueroa WBC 7.8 103/ul Normal 4.0-11.0 [facility] Comment on above: Performed By: #### P SASC #### [facility] [address] [place] [address] Dr. Dileep Figueroa MAYO- BMP WITH LIPIDon 2022 Anion gap [Moles/Vol] 11.5 mmol/L Normal [facility] Comment on above: Performed By: #### D ATBMP #### [facility] [address] [place] [address] [address] Dileep Figueroa Calcium [Mass/Vol] 9.1 mg/dL Normal 8.5-10.1 [facility] Comment on above: Performed By: #### D ATBMP #### [facility] [address] [place] [address] [address] Dileep Figueroa Chloride [Moles/Vol] 102 mmol/L Normal 98-107 [facility] Comment on above: Performed By: #### D ATBMP #### [facility] [address] [place] [address] [address] Dileep Figueroa Cholesterol [Mass/Vol] 209 mg/dL Critically high <=200 [facility] Comment on above: Performed By: #### D ATBMP #### [facility] [address] [place] [address] [address] Dileep Figueroa Cholesterol in HDL [Mass/Vol] 35 mg/dL Critically low 40-60 [facility] Comment on above: Performed By: #### D ATBMP #### [facility] [address] [place] [address] [address] Dileep Figueroa Cholesterol in LDL [Mass/Vol] 108.6 mg/dL Normal [facility] Comment on above: Performed By: #### D ATBMP #### [facility] [address] [place] [address] [address] Dileep Figueroa CO2 [Moles/Vol] 29.1 mmol/L Normal 21.0-32.0 [facility] Comment on above: Performed By: #### D ATBMP #### [facility] [address] [place] [address] [address] Dileep Figueroa Creatinine [Mass/Vol] 0.82 mg/dL Normal 0.70-1.30 [facility] Comment on above: Performed By: #### D ATBMP #### [facility] [address] [address] [address] Dileep Figueroa EGFR-AF MALAWIAN >60 Normal >=60 [facility] Comment on above: Performed By: #### D ATBMP #### [facility] [address] [address] [address] Dileep Figueroa EGFR-NON AF MALAWIAN >60 Normal >=60 [facility] Comment on above: Performed By: #### D ATBMP #### [facility] [address] [address] [address] Dileep Figueroa Glucose [Mass/Vol] 229 mg/dL Critically high 74-106 T [facility] Comment on above: Performed By: #### D ATBMP #### [facility] [address] [address] [address] Dileep Figueroa HDL NORMAL > or = 60 mg/dl - LO W CARDIOVASCULAR RISK <40 mg/dl - HIGH CARDIOVASCULAR RISK Normal [facility] Comment on above: Performed By: #### D ATBMP #### [facility] [address] [address] [address] Dileep Figueroa LDL CALC NORMAL SEE BELOW Normal [facility] Comment on above: Result Comment: <100 mg/dl OPTIMAL 100 - 129 mg/dl NEAR OR ABOVE OPTIMAL 130 - 159 mg/dl BORDERLINE HIGH 160 - 189 mg/dl HIGH >190 mg/dl VERY HIGH Performed By: #### D ATBMP #### [facility] [address] [address] [address] Dileep Figueroa Potassium [Moles/Vol] 3.6 mmol/L Normal 3.5-5.1 [facility] Comment on above: Performed By: #### D ATBMP #### [facility] [address] [address] [address] Dileep Figueroa Sodium [Moles/Vol] 139 mmol/L Normal 136-145 [facility] Comment on above: Performed By: #### D ATBMP #### [facility] [address] [address] [address] Dileep Figueroa Triglyceride [Mass/Vol] 327 mg/dL Critically high <=150 [facility] Comment on above: Performed By: #### D ATBMP #### [facility] [address] [address] [address] Dileep Figueroa Urea nitrogen [Mass/Vol] 21.0 mg/dL Critically high 7.0-18.0 [facility] Comment on above: Performed By: #### D ATBMP #### [facility] [address] [address] [address] Dileep Figueroa Urea nitrogen/Creatinine [Mass ratio] 25.6 mg/mg Normal [facility] Comment on above: Performed By: #### D ATBMP #### [facility] [address] [address] [address] Dileep Figueroa VLDL CALC 65.4 mg/dL Normal [facility] Comment on above: Performed By: #### D ATBMP #### [facility] [address] [address] [address] Dileep Figueroa GLYCOHEMOGLOBIN A1Con 2022 ADA RECOMMENDATION SEE BELOW Normal [facility] Comment on above: Result Comment: ADA RECOMMENDED LIMIT 4.0 - 6.0 ADA THERAPEUTIC TARGET < 7.0 ACTION SUGGESTED > 7.0 Performed By: #### D ATA1C #### [facility] [address] [address] [address] Dileep Figueroa Glucose [Mass/Vol] 200 mg/dL Normal [facility] Comment on above: Performed By: #### D ATA1C #### [facility] [address] [address] [address] Dileep Figueroa HbA1c (Bld) [Mass fraction] 8.6 % Critically high 4.5-6.2 [facility] Comment on above: Performed By: #### D ATA1C #### [facility] [address] [address] [address] Dileep Figueroa Glucose Glucometer (dC) [M ass/Vol]Ordered By: Sonido Calvert on 10-03-2022 Glucose [Mass/Vol] 280 mg/dL [facility] Comment on above: Random Glucose Refer ence Range is dependent on time and content of last meal. Glucose of more than 200 mg/dL in a nonstressed, ambulatory subject supports the diagnosis of Diabetes Mellitus. Creatinine and Glomerular fi ltration rate.predicted panel (S/P/Bld)Ordered By: Jose Luis Cheney on 10-02-2022 Creatinine [Mass/Vol] 0.89 mg/dL 0.64-1.27 [facility] Estimated glomerular filtrat ion rate (GFR) non- AmericanOrdered By: Jose Luis Cheney on 10-02-2022 GFR/1.73 sq M.predicted among non-blacks MDRD (S/P/Bld) [Vol rate/Area] > 60 mL/Min [facility] No Panel InformationOrdered By: Sonido Calvert on 10-02-2022 Bedside Glucose Comment Glu2: cleaned meter [facility] No Panel InformationOrdered By: Jose Luis Cheney on 10-02-2022 Estimated GFR () > 60 mL/Min [facility] Comment on above: GFR estimated refere nce range: According to KDOQI guidelines, <60 ml/min/1.73m2 is sufficient to diagnose a patient with chronic kidney disease. Pharmacy Creatinine Clearance (Chem 89.54 [facility] Serum or plasma anion gap de terminationOrdered By: Jose Luis Cheney on 10-02-2022 Anion gap [Moles/Vol] 17.2 mmol/L 6.0-15.0 [facility] Serum or plasma calcium dana urement (mass/volume)Ordered By: Jose Luis Cheney on 10-02-2022 Calcium [Mass/Vol] 9.6 mg/dL 8.2-10.2 [facility] Serum or plasma chloride noemy surement (moles/volume)Ordered By: Jose Luis Cheney on 10-02-2022 Chloride [Moles/Vol] 97 mmol/L 95-[address] [facility] Serum or plasma glucose dana urement (mass/volume)Ordered By: Jose Luis Cheney on 10-02-2022 Glucose [Mass/Vol] 219 mg/dL 70-100 [facility] Comment on above: ADA recommended refe rence rangeRandom Glucose Reference Range is dependent on time and content of last meal. Glucose of more than 200 mg/dL in a nonstressed, ambulatory subject supports the diagnosis of Diabetes Mellitus. Serum or plasma potassium me asurement (moles/volume)Ordered By: Jose Luis Cheney on 10-02-2022 Potassium [Moles/Vol] 3.9 mmol/L 3.5-5.1 [facility] Serum or plasma sodium measu rement (moles/volume)Ordered By: Jose Luis Cheney on 10-02-2022 Sodium [Moles/Vol] 135 mmol/L 136-146 [facility] Serum or plasma total carbon dioxide measurement (moles/volume)Ordered By: Jose Luis Cheney on 10-02-2022 CO2 [Moles/Vol] 24.7 mmol/L 22.0-30.0 [facility] Serum or plasma urea nitroge n measurement (mass/volume)Ordered By: Jose Luis Cheney on 10-02-2022 Urea nitrogen [Mass/Vol] 18 mg/dL 9-23 [facility] COVID-19 SOFIAOrdered By: Bert Scott on 09-28-2022 SARS-CoV+SARS-CoV-2 (COVID-19) Ag IA.rapid Ql (Resp) Negative Negative [facility] Comment on above: This is a duplicate Adina SARS Antigen (THERON) result to be used for statistical tracking purpose only. No Panel InformationOrdered By: Sonido Calvert on 09-28-2022 SARS Antigen (LFIA) [facility] GLYCOHEMOGLOBIN A1Con 2021 ADA RECOMMENDATION SEE BELOW Normal [facility] Comment on above: Result Comment: ADA RECOMMENDED LIMIT 4.0 - 6.0 ADA THERAPEUTIC TARGET < 7.0 ACTION SUGGESTED > 7.0 Performed By: #### P SASC #### [facility] [address] [address] [address] Dileep Figueroa Glucose [Mass/Vol] 186 mg/dL Normal [facility] Comment on above: Performed By: #### P SASC #### [facility] [address] [address] [address] Dileep Figueroa HbA1c (Bld) [Mass fraction] 8.1 % Critically high 4.5-6.2 [facility] Comment on above: Performed By: #### P SASC #### [facility] [address] [address] [address] Dileep Figueroa PROF CHEM 8 (BAS METB)on Anion gap [Moles/Vol] 12.3 mmol/L Normal Th [facility] Comment on above: Performed By: #### D ATA1C #### [facility] [address] [address] [address] Dileep Figueroa Calcium [Mass/Vol] 9.2 mg/dL Normal 8.5-10.1 [facility] Comment on above: Performed By: #### D ATA1C #### [facility] [address] [address] [address] Dileep Figueroa Chloride [Moles/Vol] 100 mmol/L Normal 98-107 [facility] Comment on above: Performed By: #### D ATA1C #### [facility] [address] [place] [address] Dr. Dilepe Figueroa CO2 [Moles/Vol] 27.5 mmol/L Normal 21.0-32.0 [facility] Comment on above: Performed By: #### D ATA1C #### [facility] [address] [place] [address] Dr. Dileep Figueroa Creatinine [Mass/Vol] 0.89 mg/dL Normal 0.70-1.30 [facility] Comment on above: Performed By: #### D ATA1C #### [facility] [address] [place] [address] Dr. Dileep Figueroa EGFR-AF MALAWIAN >60 Normal >=60 [facility] Comment on above: Performed By: #### D ATA1C #### [facility] [address] [place] [address] Dr. Dileep Figueroa EGFR-NON AF MALAWIAN >60 Normal >=60 [facility] Comment on above: Performed By: #### D ATA1C #### [facility] [address] [place] [address] Dr. Dileep Figueroa Glucose [Mass/Vol] 205 mg/dL Critically high 74-106 [facility] Comment on above: Performed By: #### D ATA1C #### [facility] [address] [place] [address] Dr. Dileep Figueroa Potassium [Moles/Vol] 3.8 mmol/L Normal 3.5-5.1 [facility] Comment on above: Performed By: #### D ATA1C #### [facility] [address] [address] [address] Dileep Figueroa Sodium [Moles/Vol] 136 mmol/L Normal 136-145 [facility] Comment on above: Performed By: #### D ATA1C #### [facility] [address] [address] [address] Dileep Figueroa Urea nitrogen [Mass/Vol] 18.0 mg/dL Normal 7.0-18.0 [facility] Comment on above: Performed By: #### D ATA1C #### [facility] [address] [place] [address] Dr. Dileep Figueroa Urea nitrogen/Creatinine [Mass ratio] 20.2 mg/mg Normal [facility] Comment on above: Performed By: #### D ATA1C #### [facility] [address] [place] [address] Dr. Dileep Figueroa Office Visit (Cardiology)on 09-26-2022 [...] Knee surgery History of Tonsillectomy History of [place] tooth extraction Current Meds Medication NameInstruction amLODIPine Besylate 5 MG Oral TabletTake 1 tablet daily Aspirin 325 MG Oral Tablet Delayed ReleaseTake 1 tablet daily Aspirin EC 81 MG Oral Tablet Delayed ReleaseTAKE 1 TABLET Daily Carvedilol 12.5 MG Oral TabletTAKE 1 TABLET TWICE DAILY. Famotidine 20 MG Oral TabletTAKE 1 TABLET TWICE DAILY. Glimepiride 1 MG Oral TabletTake 1 tablet daily Lisinopril-hydroCHLOROthia zide 20-12.5 MG Oral TabletTake 1 tablet daily Cjlkf-Lu-Cxzx TABSTake 1 tablet daily Vitamin D3 125 [...] Recorded: 26Sep2022 12:00PMRecorded: 26Sep2022 11:58AM Heart Rate55, Rzhttn88, Apical Fljevsft186, LUE, Vfrqswh106, RUE, Sitting Ovdmawkzm97, LUE, Kvbaubh22, RUE, Sitting Height5 ft 7 in5 ft 7 in [id number] lb 203 lb (more content not included)... Normal [place] Tobacco Screening.on 022 Adult depression screening assessment No [facility] DO Work Phone: Fall risk assessment a) No falls within the last year [facility] DO Work Phone: Tobacco use status [facility] b) No [facility] 250 DO Work Phone: Basophils Auto (Bld) [#/Vol] Ordered By: Sonido Calvert on 11-23-2022 Basophils (Bld) [#/Vol] 0.1 10*3/uL 0.0-0.2 [facility] Basophils/100 WBC Auto (Bld) Ordered By: Sonido Calvert on 09-20-2022 Basophils/100 WBC (Bld) 1.8 % . [facility] Creatinine and Glomerular fi ltration rate.predicted panel (S/P/Bld)Ordered By: Sonido Calvert on 09-20-2022 Creatinine [Mass/Vol] 0.86 mg/dL 0.64-1.27 [facility] Eosinophils Auto (Bld) [#/Vo l]Ordered By: Sonido Calvert on 09-20-2022 Eosinophils (Bld) [#/Vol] 0.7 10*3/uL 0.0-0.45 [facility] Eosinophils/100 WBC Auto (Bl d)Ordered By: Sonido Calvert on 09-20-2022 Eosinophils/100 WBC (Bld) 9.6 % . [facility] Erythrocyte distribution wid th Auto (RBC) [Ratio]Ordered By: Sonido Calvert on 09-20-2022 Erythrocyte distribution width (RBC) [Ratio] 13.8 % 12.0-14.8 [facility] Estimated glomerular filtrat ion rate (GFR) non- AmericanOrdered By: Soindo Calvert on 09-20-2022 GFR/1.73 sq M.predicted among non-blacks MDRD (S/P/Bld) [Vol rate/Area] > 60 mL/Min [facility] Hematocrit Auto (Bld) [Volum e fraction]Ordered By: Sonido Calvert on 09-20-2022 Hematocrit (Bld) [Volume fraction] 47.1 % 38.8-50.0 [facility] Hemoglobin [Mass/volume] in BloodOrdered By: Sonido Calvert on 09-20-2022 Hemoglobin (Bld) [Mass/Vol] 15.7 g/dL 13.0-17.0 [facility] - Hematology and Cell countsOrdered By: Sonido Calvert on 09-20-2022 Nucleated RBC/100 WBC (Bld) [Ratio] 0.2 % 0-0.5 [facility] Leukocytes [#/volume] in Blo od by Automated countOrdered By: Sonido Calvert on 09-20-2022 WBC (Bld) [#/Vol] 7.8 10*3/uL 4.5-11.0 [facility] Lymphocytes Auto (Bld) [#/Vo l]Ordered By: Sonido Calvert on 09-20-2022 Lymphocytes (Bld) [#/Vol] 2.0 10*3/uL 1.00-4.8 [facility] Lymphocytes/100 WBC Auto (Bl d)Ordered By: Sonido Calvert on 09-20-2022 Lymphocytes/100 WBC (Bld) 26.0 % . [facility] MCH Auto (RBC) [Entitic mass ]Ordered By: Sonido Calvert on 09-20-2022 MCH (RBC) [Entitic mass] 30.2 pg 27.5-35.2 [facility] MCHC Auto (RBC) [Mass/Vol]Or dered By: Sonido Calvert on 09-20-2022 MCHC (RBC) [Mass/Vol] 33.4 g/dL 32.5-35.6 [facility] MCV Auto (RBC) [Entitic vol] Ordered By: Sonido Calvert on 09-20-2022 MCV (RBC) [Entitic vol] 90.3 fL 83.5-101 [facility] Monocytes Auto (Bld) [#/Vol] Ordered By: Sonido Calvert on 09-20-2022 Monocytes (Bld) [#/Vol] 0.7 10*3/uL 0.0-0.8 [facility] Monocytes/100 WBC Auto (Bld) Ordered By: Sonido Calvert on 09-20-2022 Monocytes/100 WBC (Bld) 9.6 % . [facility] Neutrophils Auto (Bld) [#/Vo l]Ordered By: Sonido Calvert on 09-20-2022 Neutrophils (Bld) [#/Vol] 4.1 10*3/uL 1.8-7.7 [facility] Neutrophils/100 WBC Auto (Bl d)Ordered By: Sonido Calvert on 09-20-2022 Neutrophils/100 WBC (Bld) 53.0 % . [facility] No Panel InformationOrdered By: Sonido Calvert on 09-20-2022 Estimated GFR () > 60 mL/Min [facility] Comment on above: GFR estimated refere nce range: According to KDOQI guidelines, <60 ml/min/1.73m2 is sufficient to diagnose a patient with chronic kidney disease. Pharmacy Creatinine Clearance (Chem N/A [facility] Platelet mean volume Auto (B ld) [Entitic vol]Ordered By: Sonido Calvert on 09-20-2022 Platelet mean volume (Bld) [Entitic vol] 8.3 fL 6.6-10.1 [facility] Platelets Auto (Bld) [#/Vol] Ordered By: Sonido Calvert on 09-20-2022 Platelets (Bld) [#/Vol] 205 10*3/uL 150-450 [facility] RBC Auto (Bld) [#/Vol]Ordere d By: Sonido Calvert on 09-20-2022 RBC (Bld) [#/Vol] 5.21 10*6/uL 3.90-5.[address] [facility] Serum or plasma anion gap de terminationOrdered By: Sonido Calvert on 09-20-2022 Anion gap [Moles/Vol] 16.5 mmol/L 6.0-15.0 [facility] Serum or plasma calcium dana urement (mass/volume)Ordered By: Sonido Calvert on 09-20-2022 Calcium [Mass/Vol] 9.2 mg/dL 8.2-10.2 [facility] Serum or plasma chloride noemy surement (moles/volume)Ordered By: Sonido Calvert on 09-20-2022 Chloride [Moles/Vol] 101 mmol/L 95-[address] [facility] Serum or plasma glucose dana urement (mass/volume)Ordered By: Sonido Calvert on 09-20-2022 Glucose [Mass/Vol] 261 mg/dL 70-100 [facility] Comment on above: ADA recommended refe rence rangeRandom Glucose Reference Range is dependent on time and content of last meal. Glucose of more than 200 mg/dL in a nonstressed, ambulatory subject supports the diagnosis of Diabetes Mellitus. Serum or plasma potassium me asurement (moles/volume)Ordered By: Sonido Calvert on 09-20-2022 Potassium [Moles/Vol] 5.6 mmol/L 3.5-5.1 [facility] Comment on above: SPECIMEN HEMOLIZED, SUGGEST RECOLLECTING LFM --- 09/20/22 1527 ---K previously reported as: 5.6 H mmol/L Serum or plasma sodium measu rement (moles/volume)Ordered By: Sonido Calvert on 09-20-2022 Sodium [Moles/Vol] 134 mmol/L 136-146 [facility] Serum or plasma total carbon dioxide measurement (moles/volume)Ordered By: Sonido Calvert on 09-20-2022 CO2 [Moles/Vol] 22.1 mmol/L 22.0-30.0 [facility] Serum or plasma urea nitroge n measurement (mass/volume)Ordered By: Sonido Calvert on 09-20-2022 Urea nitrogen [Mass/Vol] 18 mg/dL 07-21 [facility] XR lumbar spine 6V w bending on 09-12-2022 XR lumbar spine 6V w bending [facility] Other XR lumbar spine 6V w bending [facility] Other XR lumbar spine 6V w bending [address] [place] [address] [facility] Other XR lumbar spine 6V [place] [address] [facility] Other XR lumbar spine 6V w bending XRay Report [facility] Other XR lumbar spine 6V w bending Signed [facility] Other XR lumbar spine 6V w bending Patient: Cale Krause MR#: [id number] [facility] Other XR lumbar spine 6V w bending : 1955 Acct:[id number] [facility] Other XR lumbar spine 6V w bending Age/Sex: 67 / M ADM Date: 09/12/22 [facility] Other XR lumbar spine 6V w bending Loc: XD Room: Type: [facility] Other XR lumbar spine 6V w bending Attending Dr: Sonido Calvert MD [facility] Other XR lumbar spine 6V w bending Copies to: Sonido Calvert MD [facility] Other XR lumbar spine 6V w bending Ordering Provider: Sonido Calvert MD [facility] Other XR lumbar spine 6V w bending Date of Service: 09/12/22 [facility] Other XR lumbar spine 6V w bending XR/XR cerv spine AP/LAT/FLX/EXT: M48.02 [facility] Other XR lumbar spine 6V w bending ([id number]) XR/XR lumbar spine 6V w bending: M48.062 [facility] Other XR lumbar spine 6V w bending CLINICAL HISTORY: Low back pain with numbness rate down the legs. Neck pain on the left. [facility] Other XR lumbar spine 6V w bending CERVICAL SPINE WITH FLEXION AND EXTENSION VIEWS -4 views: [facility] Other XR lumbar spine 6V w bending COMPARISON: CT 08/03/2022 [employer] Other XR lumbar spine 6V w bending AP as well as lateral views in neutral, flexion and extension were obtained. There are no acute [facility] Other XR lumbar spine 6V w bending compression fractures. There is minimal anterolisthesis of C6 on C7. Alignment does not change [facility] Other XR lumbar spine 6V w bending significantly with flexion or extension. There is disc space narrowing at C3-4, C5-6 and C6-7. [facility] Other XR lumbar spine 6V w bending There is endplate spurring as well as bilateral facet hypertrophy. Degenerative changes are also [facility] Other XR lumbar spine 6V w bending seen at the C1-2 facets, greater on the left where small bony ossicles are present. No prevertebral [facility] Other XR lumbar spine 6V w bending soft tissue swelling is seen. [facility] Other XR lumbar spine 6V w bending XR/XR cerv spine AP/LAT/FLX/EXT [facility] Other XR lumbar spine 6V w bending IMPRESSION: [facility] Other XR lumbar spine 6V w bending DEGENERATIVE CHANGES DESCRIBED. SIMILAR FINDINGS WERE SEEN ON THE RECENT CT. [facility] Other XR lumbar spine 6V w bending LUMBAR SPINE WITH FLEXION, EXTENSION AND BENDING VIEWS - 6 views [facility] Other XR lumbar spine 6V w bending COMPARISON: MRI 08/11/2022 [facility] Other XR lumbar spine 6V w bending Standing AP neutral, right and left bending as well as lateral views in neutral, flexion and [facility] Other XR lumbar spine 6V w bending extension were obtained. 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 There are no acute [facility] Other XR lumbar spine 6V w bending fractures. Minor retrolisthesis of L1 on L2 and L2 on L3 is seen. There is also slight [facility] Other XR lumbar spine 6V w bending anterolisthesis of L3 on L4 and L4 and L5. Alignment does not change significantly with flexion or [facility] Other XR lumbar spine 6V w bending extension. There is mild multilevel disc space narrowing. There is endplate spurring as well as [facility] Other XR lumbar spine 6V w bending mid and lower lumbar facet hypertrophy. The SI joints are intact. There is minor atherosclerotic [facility] Other XR lumbar spine 6V w bending disease. No paraspinal soft tissue abnormalities are present. [facility] Other XR lumbar spine 6V w bending DEGENERATIVE CHANGES, DESCRIBED. [facility] Other XR lumbar spine 6V w bending Impression dictated by: Toya Nascimento M.D.09/12/2022 5:26 PM [facility] Other XR lumbar spine 6V w bending Dictation Location: [place] [address] [facility] Other XR lumbar spine 6V w bending Transcribed By: PWS 09/12/22 1726 [facility] Other XR lumbar spine 6V w bending Dictated By: Toya Nascimento MD 09/12/22 1719 [facility] Other XR lumbar spine 6V w bending Signed By: [facility] Other XR lumbar spine 6V w bending 09/12/22 1727 [facility] Other MRI LSPINE WO CONon 08-11-20 MRI LSPINE WO CON EXAMINATION: MRI LSP INE WO CON HISTORY: Lumbar spondylosis with myelopathy [...] JOSE LUIS LÓPEZ Date: 2022-08-11 17:17 Normal [facility] MRI CSPINE WO CONon 08-08-20 22 MRI CSPINE WO CON EXAMINATION: MRI CSP INE WO CON HISTORY: Spinal stenosis COMPARISON: None. [...] by: ROSALIE KATZ Date: 2022-08-08 16:02 Normal [facility] CBC AUTO DIFFon 08-04-2022 BASO # 0.1 103/ul Normal 0.0-0.1 [facility] Comment on above: Performed By: #### P OCGLUC #### [facility] [address] [address] [address] Dileep Figueroa Basophils/100 WBC (Bld) 1.5 % Normal 0.2-2.0 [facility] Comment on above: Performed By: #### P OCGLUC #### [facility] [address] [place] [address] Dr. Dileep Figueroa EO # 0.6 103/ul Normal 0.0-0.7 [facility] Comment on above: Performed By: #### P OCGLUC #### [facility] [address] [place] [address] Dr. Dileep Figueroa Eosinophils/100 WBC (Bld) 8.9 % Critically high 0.9-7.0 [facility] Comment on above: Performed By: #### P OCGLUC #### [facility] [address] [place] [address] Dr. Dileep Figueroa Erythrocyte distribution width (RBC) [Ratio] 13.3 % Normal 11.0-15.0 [facility] Comment on above: Performed By: #### P OCGLUC #### [facility] [address] [place] [address] Dr. Dileep Figueroa Hematocrit (Bld) [Volume fraction] 42.6 % Normal 42.0-54.0 [facility] Comment on above: Performed By: #### P OCGLUC #### [facility] [address] [place] [address] Dr. Dileep Figueroa Hemoglobin (Bld) [Mass/Vol] 14.6 g/dL Normal 14.0-18.0 [facility] Comment on above: Performed By: #### P OCGLUC #### [facility] [address] [place] [address] Dr. Dileep Figueroa IG # 0.04 10e3/ul Critically high 0.00-0.03 [facility] Comment on above: Performed By: #### P OCGLUC #### [facility] [address] [place] [address] Dr. Dileep Figueroa IG % 0.6 % Critically high 0.0-0.5 [facility] Comment on above: Performed By: #### P OCGLUC #### [facility] [address] [place] [address] Dr. Dileep Figueroa LYMPH # 2.3 103/ul Normal 1.2-3.8 [facility] Comment on above: Performed By: #### P OCGLUC #### [facility] [address] [place] [address] Dr. Dileep Figueroa Lymphocytes/100 WBC (Bld) 32.7 % Normal 20.5-60.0 [facility] Comment on above: Performed By: #### P OCGLUC #### [facility] [address] [place] [address] Dr. Dileep Figueroa MANUAL DIFF REQ NO Normal [facility] Comment on above: Performed By: #### P OCGLUC #### [facility] [address] [place] [address] Dr. Dileep Figueroa MCH (RBC) [Entitic mass] 30.7 pg Normal 25.9-34.0 [facility] Comment on above: Performed By: #### P OCGLUC #### [facility] [address] [place] [address] Dr. Dileep Figueroa MCHC (RBC) [Mass/Vol] 34.3 g/dL Normal 29.9-35.2 [facility] Comment on above: Performed By: #### P OCGLUC #### [facility] [address] [place] [address] Dr. Dileep Figueroa MCV (RBC) [Entitic vol] 89.5 fL Normal 80.0-94.0 [facility] Comment on above: Performed By: #### P OCGLUC #### [facility] [address] [place] [address] Dr. Dileep Figueroa MONO # 0.7 103/ul Normal 0.3-0.8 [facility] Comment on above: Performed By: #### P OCGLUC #### [facility] [address] [place] [address] Dr. Dileep Figueroa Monocytes/100 WBC (Bld) 9.7 % Normal 1.7-12.0 [facility] Comment on above: Performed By: #### P OCGLUC #### [facility] [address] [address] [address] Dileep Figueroa NEUT # 3.3 103/ul Normal 1.4-6.5 [facility] Comment on above: Performed By: #### P OCGLUC #### [facility] [address] [address] [address] Dileep Figueroa Neutrophils/100 WBC (Bld) 46.6 % Normal 43.0-75.0 [facility] Comment on above: Performed By: #### P OCGLUC #### [facility] [address] [address] [address] Dileep Figueroa Platelet mean volume (Bld) [Entitic vol] 9.6 fL Normal 9.5-13.5 [facility] Comment on above: Performed By: #### P OCGLUC #### [facility] [address] [place] [address] Dr. Dileep Figueroa PLT 203 103/ul Normal 150-450 [facility] Comment on above: Performed By: #### P OCGLUC #### [facility] [address] [place] [address] Dr. Dileep Figueroa RBC 4.76 106/ul Normal 4.70-6.10 [facility] Comment on above: Performed By: #### P OCGLUC #### [facility] [address] [place] [address] Dr. Dileep Figueroa WBC 7.1 103/ul Normal 4.0-11.0 [facility] Comment on above: Performed By: #### P OCGLUC #### [facility] [address] [address] [address] Dileep Figueroa POINT OF CARE GLUCOSEon Glucose [Mass/Vol] 158 mg/dL Critically high 74-106 [facility] Comment on above: Performed By: #### D ATA1C #### [facility] [address] [place] [address] Dr. Dileep Figueroa PROF CHEM 8 (BAS METB)on Anion gap [Moles/Vol] 8.2 mmol/L Normal [facility] Comment on above: Performed By: #### P SASC #### [facility] [address] [address] [address] Dileep Figueroa Calcium [Mass/Vol] 8.6 mg/dL Normal 8.5-10.1 [facility] Comment on above: Performed By: #### P SASC #### [facility] [address] [address] [address] Dileep Figueroa Chloride [Moles/Vol] 106 mmol/L Normal 98-107 [facility] Comment on above: Performed By: #### P SASC #### [facility] [address] [address] [address] Dileep Figueroa CO2 [Moles/Vol] 28.2 mmol/L Normal 21.0-32.0 [facility] Comment on above: Performed By: #### P SASC #### [facility] [address] [address] [address] Dileep Figueroa Creatinine [Mass/Vol] 0.80 mg/dL Normal 0.70-1.30 [facility] Comment on above: Performed By: #### P SASC #### [facility] [address] [address] [address] Dileep Figueroa EGFR-AF MALAWIAN >60 Normal >=60 [facility] Comment on above: Performed By: #### P SASC #### [facility] [address] [address] [address] Dileep Figueroa EGFR-NON AF MALAWIAN >60 Normal >=60 [facility] Comment on above: Performed By: #### P SASC #### [facility] [address] [address] [address] Dileep Figueroa Glucose [Mass/Vol] 137 mg/dL Critically high 74-106 [facility] Comment on above: Performed By: #### P SASC #### [facility] [address] [address] [address] Dileep Figueroa Potassium [Moles/Vol] 3.4 mmol/L Critically low 3.5-5.1 [facility] Comment on above: Performed By: #### P SASC #### [facility] [address] [address] [address] Dileep Figueroa Sodium [Moles/Vol] 139 mmol/L Normal 136-145 [facility] Comment on above: Performed By: #### P SASC #### [facility] [address] [address] [address] Dileep Figueroa Urea nitrogen [Mass/Vol] 21.0 mg/dL Critically high 7.0-18.0 [facility] Comment on above: Performed By: #### P SASC #### [facility] [address] [address] [address] Dileep Figueroa Urea nitrogen/Creatinine [Mass ratio] 26.2 mg/mg Normal [facility] Comment on above: Performed By: #### P SASC #### [facility] [address] [place] [address] Dr. Dileep Figueroa BNPon 08-03-2022 Natriuretic peptide B (Bld) [Mass/Vol] 179.0 pg/mL Normal <=900.0 [facility] Comment on above: Performed By: #### D ATA1C #### [facility] [address] [place] [address] Dr. Dileep Figueroa CARDIAC ARNULFO ADMITon 022 CK [Catalytic activity/Vol] 162 U/L Normal 39-308 [facility] Comment on above: Performed By: #### D ATA1C #### [facility] [address] [place] [address] Dr. Dileep Figueroa CK.MB [Mass/Vol] 2.92 ng/mL Normal <=3.60 [facility] Comment on above: Performed By: #### D ATA1C #### [facility] [address] [place] [address] Dr. Dileep Figueroa HSTROP 12.0 pg/mL Normal 4.0-76.1 [facility] Comment on above: Result Comment: CUT- OFF POINTS HAVE BEEN ESTABLISHED BASED ON THE FOURTH UNIVERSAL DEFINITIONS OF MYOCARDIAL INFARCTION. THE UPPER REFERENCE LIMIT (URL) OF TROPONIN, DEFINED THE 99TH PERCENTILE OF cTnI DISTRIBUTION IN A REFERENCE POPULATION, HAS BEEN CONFIRMED THE DECISION THRESHOLD FOR UT DIAGNOSIS. Performed By: #### D ATA1C #### [facility] [address] [place] [address] Dr. Dileep Figueroa ELE 52 ng/mL Normal 16-96 [facility] Comment on above: Performed By: #### D ATA1C #### [facility] [address] [place] [address] Dr. Dileep Figueroa CBC AUTO DIFFon 08-03-2022 BASO # 0.1 103/ul Normal 0.0-0.1 [facility] Comment on above: Performed By: #### C BC #### [facility] [address] [place] [address] Dr. Dileep Figueroa Basophils/100 WBC (Bld) 1.8 % Normal 0.2-2.0 [facility] Comment on above: Performed By: #### C BC #### [facility] [address] [place] [address] Dr. Dileep Figueroa EO # 0.8 103/ul Critically high 0.0-0.7 [facility] Comment on above: Performed By: #### C BC #### [facility] [address] [place] [address] Dr. Dileep Figueroa Eosinophils/100 WBC (Bld) 9.4 % Critically high 0.9-7.0 [facility] Comment on above: Performed By: #### C BC #### [facility] [address] [place] [address] Dr. Dileep Figueroa Erythrocyte distribution width (RBC) [Ratio] 13.2 % Normal 11.0-15.0 [facility] Comment on above: Performed By: #### C BC #### [facility] [address] [place] [address] Dr. Dileep Figueroa Hematocrit (Bld) [Volume fraction] 45.2 % Normal 42.0-54.0 [facility] Comment on above: Performed By: #### C BC #### [facility] [address] [place] [address] Dr. Dileep Figueroa Hemoglobin (Bld) [Mass/Vol] 15.5 g/dL Normal 14.0-18.0 [facility] Comment on above: Performed By: #### C BC #### [facility] [address] [place] [address] Dr. Dileep Figueroa IG # 0.06 10e3/ul Critically high 0.00-0.03 [facility] Comment on above: Performed By: #### C BC #### [facility] [address] [address] [address] Dileep Figueroa IG % 0.8 % Critically high 0.0-0.5 [facility] Comment on above: Performed By: #### C BC #### [facility] [address] [place] [address] Dr. Dileep Figueroa LYMPH # 1.9 103/ul Normal 1.2-3.8 [facility] Comment on above: Performed By: #### C BC #### [facility] [address] [place] [address] Dr. Dileep Figueroa Lymphocytes/100 WBC (Bld) 23.2 % Normal 20.5-60.0 [facility] Comment on above: Performed By: #### C BC #### [facility] [address] [place] [address] Dr. Dileep Figueroa MANUAL DIFF REQ NO Normal [facility] Comment on above: Performed By: #### C BC #### [facility] [address] [place] [address] Dr. Dileep Figueroa MCH (RBC) [Entitic mass] 30.4 pg Normal 25.9-34.0 [facility] Comment on above: Performed By: #### C BC #### [facility] [address] [place] [address] Dr. Dileep Figueroa MCHC (RBC) [Mass/Vol] 34.3 g/dL Normal 29.9-35.2 [facility] Comment on above: Performed By: #### C BC #### [facility] [address] [place] [address] Dr. Dileep Figueroa MCV (RBC) [Entitic vol] 88.6 fL Normal 80.0-94.0 [facility] Comment on above: Performed By: #### C BC #### [facility] [address] [place] [address] Dr. Dileep Figueroa MONO # 0.8 103/ul Normal 0.3-0.8 [facility] Comment on above: Performed By: #### C BC #### [facility] [address] [place] [address] Dr. Dileep Figueroa Monocytes/100 WBC (Bld) 9.9 % Normal 1.7-12.0 [facility] Comment on above: Performed By: #### C BC #### [facility] [address] [place] [address] Dr. Dileep Figueroa NEUT # 4.4 103/ul Normal 1.4-6.5 [facility] Comment on above: Performed By: #### C BC #### [facility] [address] [place] [address] Dr. Dileep Figueroa Neutrophils/100 WBC (Bld) 54.9 % Normal 43.0-75.0 [facility] Comment on above: Performed By: #### C BC #### [facility] [address] [place] [address] Dr. Dileep Figueroa Platelet mean volume (Bld) [Entitic vol] 9.7 fL Normal 9.5-13.5 [facility] Comment on above: Performed By: #### C BC #### [facility] [address] [place] [address] Dr. Dileep Figueroa PLT 228 103/ul Normal 150-450 [facility] Comment on above: Performed By: #### C BC #### [facility] [address] [place] [address] Dr. Dileep Figueroa RBC 5.10 106/ul Normal 4.70-6.10 [facility] Comment on above: Performed By: #### C BC #### [facility] [address] [place] [address] Dr. Dileep Figueroa WBC 8.0 103/ul Normal 4.0-11.0 [facility] Comment on above: Performed By: #### C #### [facility] [address] [address] [address] STROKE HEAD WOon 08-03-[address] STROKE HEAD WO EXAMINATION: CT STRO KE HEAD WO, 08/03/2022 9:16 AM EDT HISTORY: [...] LUIS LÓPEZ Date: 2022-08-03 09:59 Normal [facility] CTA HEAD WO W CONon 08-03-20 CTA HEAD WO W CON EXAMINATION: CTA HEA D WO W CON, CTA NECK WO W [...] LIVE NOLASCO Date: 2022-08-03 13:03 Normal [facility] Covid-19 PCR (CVDTBH)on SARS-CoV-2 (COVID-19) RNA TIMO+probe Ql (Unsp spec) Not detected Normal NOT DETECTED [facility] Comment on above: Result Comment: When [...] for this test is supported by the [employer] Custodian of Health and Human Service's declaration that [...] longer be used). Performed By: #### P [facility] #### [facility] [address] [place] [address] Dr. Dileep Figueroa MRI BRAIN WO CONon [...] by: LESLIE GILMORE Date: 2022-08-03 17:50 Normal [facility] POINT OF CARE GLUCOSEon 10-0 Glucose [Mass/Vol] 255 mg/dL Critically high 74-106 [facility] Comment on above: Performed By: #### P OCGLUC #### [facility] [address] [address] [address] Dileep Figueroa Glucose [Mass/Vol] 142 mg/dL Critically high 74-106 [facility] Comment on above: Performed By: #### P OCGLUC #### [facility] [address] [address] [address] Dileep Figueroa PROF 14(COMP METB)on 022 Albumin [Mass/Vol] 4.2 g/dL Normal 3.4-5.0 [facility] Comment on above: Performed By: #### D ATA1C #### [facility] [address] [address] [address] Dileep Figueroa Albumin/Globulin [Mass ratio] 1.2 {ratio} Normal [facility] Comment on above: Performed By: #### D ATA1C #### [facility] [address] [address] [address] Dileep Figueroa ALP [Catalytic activity/Vol] 51 U/L Normal 46-116 [facility] Comment on above: Performed By: #### D ATA1C #### [facility] [address] [address] [address] Dileep Figueroa ALT [Catalytic activity/Vol] 30 U/L Normal 16-63 [facility] Comment on above: Performed By: #### D ATA1C #### [facility] [address] [address] [address] Dileep Figueroa Anion gap [Moles/Vol] 9.2 mmol/L Normal [facility] Comment on above: Performed By: #### D ATA1C #### [facility] [address] [address] [address] Dileep Figueroa AST [Catalytic activity/Vol] 9 U/L Critically low 15-37 [facility] Comment on above: Performed By: #### D ATA1C #### [facility] [address] [address] [address] Dileep Figueroa Bilirubin [Mass/Vol] 0.4 mg/dL Normal 0.2-1.0 [facility] Comment on above: Performed By: #### D ATA1C #### [facility] [address] [address] [address] Dileep Figueroa Calcium [Mass/Vol] 9.2 mg/dL Normal 8.5-10.1 [facility] Comment on above: Performed By: #### D ATA1C #### [facility] [address] [address] [address] Dileep Figueroa Chloride [Moles/Vol] 102 mmol/L Normal 98-107 [facility] Comment on above: Performed By: #### D ATA1C #### [facility] [address] [address] [address] Dileep Figueroa CO2 [Moles/Vol] 29.4 mmol/L Normal 21.0-32.0 [facility] Comment on above: Performed By: #### D ATA1C #### [facility] [address] [address] [address] Dileep Figueroa Creatinine [Mass/Vol] 0.88 mg/dL Normal 0.70-1.30 [facility] Comment on above: Performed By: #### D ATA1C #### [facility] [address] [address] [address] Dileep Figueroa EGFR-AF MALAWIAN >60 Normal >=60 [facility] Comment on above: Performed By: #### D ATA1C #### [facility] [address] [address] [address] Dileep Figueroa EGFR-NON AF MALAWIAN >60 Normal >=60 [facility] Comment on above: Performed By: #### D ATA1C #### [facility] [address] [address] [address] Dileep Figueroa Globulin (S) [Mass/Vol] 3.4 g/dL Normal [facility] Comment on above: Performed By: #### D ATA1C #### [facility] [address] [address] [address] Dileep Figueroa Glucose [Mass/Vol] 215 mg/dL Critically high 74-106 [facility] Comment on above: Performed By: #### D ATA1C #### [facility] [address] [address] [address] Dileep Figueroa Potassium [Moles/Vol] 3.6 mmol/L Normal 3.5-5.1 [facility] Comment on above: Performed By: #### D ATA1C #### [facility] [address] [address] [address] Dileep Figueroa Protein [Mass/Vol] 7.6 g/dL Normal 6.4-8.2 [facility] Comment on above: Performed By: #### D ATA1C #### [facility] [address] [address] [address] Dileep Figueroa Sodium [Moles/Vol] 137 mmol/L Normal 136-145 [facility] Comment on above: Performed By: #### D ATA1C #### [facility] [address] [address] [address] Dileep Figueroa Urea nitrogen [Mass/Vol] 22.0 mg/dL Critically high 7.0-18.0 [facility] Comment on above: Performed By: #### D ATA1C #### [facility] [address] [place] [address] Dr. Dileep Figueroa Urea nitrogen/Creatinine [Mass ratio] 25.0 mg/mg Normal [facility] Comment on above: Performed By: #### D ATA1C #### [facility] [address] [place] [address] Dr. Dileep Figueroa PROTIMEon 08-03-2022 INR Coag (PPP) [Relative time] 1.00 {INR} Normal [facility] Comment on above: Performed By: #### P TT, PT #### [facility] [address] [place] [address] Dr. Dileep Figueroa INR GUIDELINES SEE BELOW Normal [facility] Comment on above: Result Comment: DEVIN RED INR: 2.0 - 3.0 CONDITIONS NOT LISTED BELOW 2.5 - 3.5 FOR PROSTHETIC HEART VALVE REPLACEMENT 2.5 - 3.5 RECURRENT THROMBOSIS Performed By: #### P TT, PT #### [facility] [address] [place] [address] Dr. Dileep Figueroa PT Coag (PPP) [Time] 10.8 s Normal 9.0-11.6 [facility] Comment on above: Performed By: #### P TT, PT #### [facility] [address] [place] [address] Dr. Dileep Figueroa PTTon 08-03-2022 aPTT Coag (Bld) [Time] 25.8 s Normal 22.3-36.2 [facility] Comment on above: Performed By: #### P TT, PT #### [facility] [address] [place] [address] Dr. Dileep Figueroa XR CHEST 1 Von 08-03-2022 XR CHEST 1 V EXAMINATION: XR CHES T 1 V HISTORY: Cerebrovascular accident COMPARISON: No [...] JOSE LUIS LÓPEZ Date: 2022-08-03 10:01 Normal [facility] MICROALBUMIN URINEon 022 Albumin, Urine 27.7 ug/mL Normal Not Estab. [facility] Comment on above: Performed By: #### D ATA1C #### [facility] [address] [place] [address] Dr. Dileep Figueroa CBC AUTO DIFFon 07-14-2022 BASO # 0.1 103/ul Normal 0.0-0.1 [facility] Comment on above: Performed By: #### C BC #### [facility] [address] [address] [address] Dileep Figueroa Basophils/100 WBC (Bld) 1.7 % Normal 0.2-2.0 [facility] Comment on above: Performed By: #### C BC #### [facility] [address] [place] [address] Dr. Dileep Figueroa EO # 0.5 103/ul Normal 0.0-0.7 [facility] Comment on above: Performed By: #### C BC #### [facility] [address] [address] [address] Dileep Figueroa Eosinophils/100 WBC (Bld) 7.9 % Critically high 0.9-7.0 [facility] Comment on above: Performed By: #### C BC #### [facility] [address] [address] [address] Dileep Figueroa Erythrocyte distribution width (RBC) [Ratio] 13.3 % Normal 11.0-15.0 [facility] Comment on above: Performed By: #### C BC #### [facility] [address] [place] [address] Dr. Dileep Figueroa Hematocrit (Bld) [Volume fraction] 46.4 % Normal 42.0-54.0 [facility] Comment on above: Performed By: #### C BC #### [facility] [address] [place] [address] Dr. Dileep Figueroa Hemoglobin (Bld) [Mass/Vol] 16.0 g/dL Normal 14.0-18.0 [facility] Comment on above: Performed By: #### C BC #### [facility] [address] [place] [address] Dr. Dileep Figueroa IG # 0.03 10e3/ul Normal 0.00-0.03 [facility] Comment on above: Performed By: #### C BC #### [facility] [address] [place] [address] Dr. Dileep Figueroa IG % 0.5 % Normal 0.0-0.5 [facility] Comment on above: Performed By: #### C BC #### [facility] [address] [place] [address] Dr. Dileep Figueroa LYMPH # 1.8 103/ul Normal 1.2-3.8 [facility] Comment on above: Performed By: #### C BC #### [facility] [address] [place] [address] Dr. Dileep Figueroa Lymphocytes/100 WBC (Bld) 27.5 % Normal 20.5-60.0 [facility] Comment on above: Performed By: #### C BC #### [facility] [address] [place] [address] Dr. Dileep Figueroa MANUAL DIFF REQ NO Normal [facility] Comment on above: Performed By: #### C BC #### [facility] [address] [place] [address] Dr. Dileep Figueroa MCH (RBC) [Entitic mass] 30.4 pg Normal 25.9-34.0 [facility] Comment on above: Performed By: #### C BC #### [facility] [address] [place] [address] Dr. Dileep Figueroa MCHC (RBC) [Mass/Vol] 34.5 g/dL Normal 29.9-35.2 [facility] Comment on above: Performed By: #### C BC #### [facility] [address] [place] [address] Dr. Dileep Figueroa MCV (RBC) [Entitic vol] 88.2 fL Normal 80.0-94.0 [facility] Comment on above: Performed By: #### C BC #### [facility] [address] [place] [address] Dr. Dileep Figueroa MONO # 0.7 103/ul Normal 0.3-0.8 [facility] Comment on above: Performed By: #### C BC #### [facility] [address] [place] [address] Dr. Dileep Figueroa Monocytes/100 WBC (Bld) 10.5 % Normal 1.7-12.0 [facility] Comment on above: Performed By: #### C BC #### [facility] [address] [place] [address] Dr. Dileep Figueroa NEUT # 3.4 103/ul Normal 1.4-6.5 [facility] Comment on above: Performed By: #### C BC #### [facility] [address] [place] [address] Dr. Dileep Figueroa Neutrophils/100 WBC (Bld) 51.9 % Normal 43.0-75.0 [facility] Comment on above: Performed By: #### C BC #### [facility] [address] [place] [address] Dr. Dileep Figueroa Platelet mean volume (Bld) [Entitic vol] 9.7 fL Normal 9.5-13.5 [facility] Comment on above: Performed By: #### C BC #### [facility] [address] [place] [address] Dr. Dileep Figueroa PLT 207 103/ul Normal 150-450 [facility] Comment on above: Performed By: #### C BC #### [facility] [address] [place] [address] Dr. Dileep Figueroa RBC 5.26 106/ul Normal 4.70-6.10 [facility] Comment on above: Performed By: #### C BC #### [facility] [address] [place] [address] Dr. Dileep Figueroa WBC 6.6 103/ul Normal 4.0-11.0 [facility] Comment on above: Performed By: #### C BC #### [facility] [address] [address] [address] Dileep Figueroa GLYCOHEMOGLOBIN A1Con 2021 ADA RECOMMENDATION SEE BELOW Normal [facility] Comment on above: Result Comment: ADA RECOMMENDED LIMIT 4.0 - 6.0 ADA THERAPEUTIC TARGET < 7.0 ACTION SUGGESTED > 7.0 Performed By: #### P SASC #### [facility] [address] [place] [address] Dr. Dileep Figueroa Glucose [Mass/Vol] 154 mg/dL Normal [facility] Comment on above: Performed By: #### P SASC #### [facility] [address] [place] [address] Dr. Dileep Figueroa HbA1c (Bld) [Mass fraction] 7.0 % Critically high 4.5-6.2 [facility] Comment on above: Performed By: #### P SASC #### [facility] [address] [place] [address] Dr. Dileep Figueroa LIPID PROFILEon 07-14-2022 CHOL-HDL RATIO NORM SEE BELOW Normal [facility] Comment on above: Result Comment: 3.3 - 4.4 LOW RISK 4.4 - 7.1 AVERAGE RISK 7.1 - 11.0 MODERATE RISK >11.0 HIGH RISK Performed By: #### D ATA1C #### [facility] [address] [place] [address] Dr. Dileep Figueroa Cholesterol [Mass/Vol] 183 mg/dL Normal <=200 [facility] Comment on above: Performed By: #### D ATA1C #### [facility] [address] [place] [address] Dr. Dileep Figueroa Cholesterol in HDL [Mass/Vol] 38 mg/dL Critically low 40-60 [facility] Comment on above: Performed By: #### D ATA1C #### [facility] [address] [place] [address] Dr. Dileep Figueroa Cholesterol in LDL [Mass/Vol] 107.4 mg/dL Normal [facility] Comment on above: Performed By: #### D ATA1C #### [facility] [address] [place] [address] Dr. Dileep Figueroa Cholesterol.total/Cho lesterol in HDL [Mass ratio] 4.8 {ratio} Normal [facility] Comment on above: Performed By: #### D ATA1C #### [facility] [address] [address] [address] Dileep Figueroa HDL NORMAL > or = 60 mg/dl - LO W CARDIOVASCULAR RISK <40 mg/dl - HIGH CARDIOVASCULAR RISK Normal [facility] Comment on above: Performed By: #### D ATA1C #### [facility] [address] [address] [address] Dileep Figueroa LDL CALC NORMAL SEE BELOW Normal [facility] Comment on above: Result Comment: <100 mg/dl OPTIMAL 100 - 129 mg/dl NEAR OR ABOVE OPTIMAL 130 - 159 mg/dl BORDERLINE HIGH 160 - 189 mg/dl HIGH >190 mg/dl VERY HIGH Performed By: #### D ATA1C #### [facility] [address] [address] [address] Dileep Figueroa Triglyceride [Mass/Vol] 188 mg/dL Critically high <=150 [facility] Comment on above: Performed By: #### D ATA1C #### [facility] [address] [address] [address] Dileep Figueroa VLDL CALC 37.6 mg/dL Normal [facility] Comment on above: Performed By: #### D ATA1C #### [facility] [address] [address] [address] Dileep Figueroa PROF CHEM 8 (BAS METB)on Anion gap [Moles/Vol] 13.4 mmol/L Normal [facility] Comment on above: Performed By: #### A ST, BMP, LIPID #### [facility] [address] [address] [address] Dileep Figueroa Calcium [Mass/Vol] 9.0 mg/dL Normal 8.5-10.1 [facility] Comment on above: Performed By: #### A ST, BMP, LIPID #### [facility] [address] [address] [address] Dilepe Figueroa Chloride [Moles/Vol] 103 mmol/L Normal 98-107 [facility] Comment on above: Performed By: #### A ST, BMP, LIPID #### [facility] [address] [address] [address] Dileep Figueroa CO2 [Moles/Vol] 25.2 mmol/L Normal 21.0-32.0 [facility] Comment on above: Performed By: #### A ST, BMP, LIPID #### [facility] [address] [address] [address] Dileep Figueroa Creatinine [Mass/Vol] 0.87 mg/dL Normal 0.70-1.30 [facility] Comment on above: Performed By: #### A ST, BMP, LIPID #### [facility] [address] [address] [address] Dileep Figueroa EGFR-AF MALAWIAN >60 Normal >=60 [facility] Comment on above: Performed By: #### A ST, BMP, LIPID #### [facility] [address] [address] [address] Dileep Figueroa EGFR-NON AF MALAWIAN >60 Normal >=60 [facility] Comment on above: Performed By: #### A ST, BMP, LIPID #### [facility] [address] [address] [address] Dileep Figueroa Glucose [Mass/Vol] 171 mg/dL Critically high 74-106 [facility] Comment on above: Performed By: #### A ST, BMP, LIPID #### [facility] [address] [address] [address] Dileep Figueroa Potassium [Moles/Vol] 3.6 mmol/L Normal 3.5-5.1 [facility] Comment on above: Performed By: #### A ST, BMP, LIPID #### [facility] [address] [address] [address] Dileep Figueroa Sodium [Moles/Vol] 138 mmol/L Normal 136-145 [facility] Comment on above: Performed By: #### A ST, BMP, LIPID #### [facility] [address] [address] [address] Dileep Figueroa Urea nitrogen [Mass/Vol] 18.0 mg/dL Normal 7.0-18.0 [facility] Comment on above: Performed By: #### A ST, BMP, LIPID #### [facility] [address] [place], [place] [address] Dr. Dileep Figueroa Urea nitrogen/Creatinine [Mass ratio] 20.7 mg/mg Normal [facility] Comment on above: Performed By: #### A ST, BMP, LIPID #### [facility] [address] [address] [address] Dileep Figueroa SGOTon 07-14-2022 AST [Catalytic activity/Vol] 10 U/L Critically low 15 [facility] Comment on above: Performed By: #### D ATA1C #### [facility] [address] [address] [address] Dileep Figueroa Vital Signs Date Time Vital Sign Value Performing Clinician Facility 07-15-2024 15:03-0400 Body height 170.18 cm DO Robert Ball Work Phone: [facility] 07-15-2024 15:03-0400 Body mass index (BMI) [Ratio] 30.5 kg/m2 DO Robert Ball Work Phone: [facility] 07-15-2024 15:03-0400 Body weight 88.5 kg DO Robert Ball Work Phone: [facility] 07-15-2024 15:03-0400 Diastolic blood pressure 82 mm[Hg] DO Robert Ball Work Phone: [facility] 07-15-2024 15:03-0400 Heart rate 77 /min DO Robert Ball Work Phone: [facility] 07-15-2024 15:03-0400 Respiratory rate 12 /min DO Robert Ball Work Phone: [facility] 07-15-2024 15:03-0400 Systolic blood pressure 139 mm[Hg] DO Robert Ball Work Phone: [facility] 05-13-2024 12:50-0400 Diastolic blood pressure 97 mm[Hg] DO Robert Ball Work Phone: [facility] 05-13-2024 12:50-0400 Heart rate 88 /min DO Robert Ball Work Phone: [facility] 05-13-2024 12:50-0400 Respiratory rate 16 /min DO Robert Ball Work Phone: [facility] 05-13-2024 12:50-0400 SaO2% (BldA) [Mass fraction] 94 % DO Robert Ball Work Phone: [facility] 05-13-2024 12:50-0400 Systolic blood pressure 155 mm[Hg] DO Robert Ball Work Phone: [facility] 05-13-2024 11:35-0400 Inhaled oxygen flow rate 1 L/min DO Robert Ball Work Phone: [facility] 05-13-2024 10:19-0400 Body temperature 98.1 [degF] DO Robert Ball Work Phone: [facility] 05-13-2024 07:40-0400 Body height 167.64 cm DO Robert Ball Work Phone: [facility] 05-13-2024 07:40-0400 Body mass index (BMI) [Ratio] 32.5 kg/m2 DO Robert Ball Work Phone: [facility] 05-13-2024 07:40-0400 Body weight 91.5 kg DO Robert Ball Work Phone: [facility] 04-08-2024 10:13-0400 Body height 161.29 cm DO Robert Ball Work Phone: [facility] 04-08-2024 10:13-0400 Body mass index (BMI) [Ratio] 35.8 kg/m2 DO Robert Ball Work Phone: [facility] 04-08-2024 10:13-0400 Body weight 93.15 kg DO Robert Ball Work Phone: [facility] 04-08-2024 10:13-0400 Diastolic blood pressure 82 mm[Hg] DO Robert Ball Work Phone: [facility] 04-08-2024 10:13-0400 Heart rate 64 /min DO Robert Ball Work Phone: [facility] 04-08-2024 10:13-0400 Respiratory rate 12 /min DO Robert Ball Work Phone: [facility] 04-08-2024 10:13-0400 Systolic blood pressure 130 mm[Hg] DO Robert Ball Work Phone: [facility] 03-03-2024 14:59-0400 Body height 161.29 cm DO Robert Ball Work Phone: [facility] 03-03-2024 14:59-0400 Body mass index (BMI) [Ratio] 35.8 kg/m2 DO Robert Ball Work Phone: [facility] 03-03-2024 14:59-0400 Body weight 93.15 kg DO Robert Ball Work Phone: [facility] 03-03-2024 14:59-0400 Diastolic blood pressure 81 mm[Hg] DO Robert Ball Work Phone: [facility] 03-03-2024 14:59-0400 Heart rate 59 /min DO Robert Ball Work Phone: [facility] 03-03-2024 14:59-0400 Respiratory rate 12 /min DO Robert Ball Work Phone: [facility] 03-03-2024 14:59-0400 Systolic blood pressure 128 mm[Hg] DO Robert Ball Work Phone: [facility] 08-31-2023 08:45-0400 Body height 161.29 cm Robert Ball Other [facility] Other 08-31-2023 08:45-0400 Body mass index (BMI) [Ratio] 35.15 kg/m2 Robert Ball Other [facility] Other 08-31-2023 08:45-0400 Body weight 91.45 kg Robert Ball Other [facility] Other 08-31-2023 08:45-0400 Diastolic blood pressure 75 mm[Hg] Robert Ball Other [facility] Other 08-31-2023 08:45-0400 Respiratory rate 16 /min Robert Ball Other [facility] Other 08-31-2023 08:45-0400 Systolic blood pressure 149 mm[Hg] Robert Ball Other [facility] Other 08-21-2023 10:45-0400 Body height 161.29 cm Robert Ball Other [facility] Other 08-21-2023 10:45-0400 Body mass index (BMI) [Ratio] 34.38 kg/m2 Robert Ball Other [facility] Other 08-21-2023 10:45-0400 Body weight 89.45 kg Robert Ball Other [facility] Other 08-21-2023 10:45-0400 Diastolic blood pressure 81 mm[Hg] Robert Ball Other [facility] Other 08-21-2023 10:45-0400 Respiratory rate 12 /min Robert Ball Other [facility] Other 08-21-2023 10:45-0400 Systolic blood pressure 149 mm[Hg] Robert Ball Other [facility] Other 07-11-2023 14:30-0400 Body height 161.29 cm Ben Murillo II Other [facility] Other 07-11-2023 14:30-0400 Body mass index (BMI) [Ratio] 34.87 kg/m2 Ben Murillo II Other [facility] Other 07-11-2023 14:30-0400 Body weight 90.72 kg Ben Murillo II Other [facility] Other 06-15-2023 14:30-0400 Body height 161.29 cm Robert Ball Other [facility] Other 06-15-2023 14:30-0400 Body mass index (BMI) [Ratio] 35.29 kg/m2 Robert Ball Other [facility] Other 06-15-2023 14:30-0400 Body weight 91.81 kg Robert Ball Other [facility] Other 06-15-2023 14:30-0400 Diastolic blood pressure 88 mm[Hg] Robert Ball Other [facility] Other 06-15-2023 14:30-0400 Respiratory rate 12 /min Robert Ball Other [facility] Other 06-15-2023 14:30-0400 Systolic blood pressure 139 mm[Hg] Robert Ball Other [facility] Other 01-05-2023 14:30-0500 Body height 161.29 cm Robert Ball Other [facility] Other 01-05-2023 14:30-0500 Body mass index (BMI) [Ratio] 36.09 kg/m2 Robert Ball Other [facility] Other 01-05-2023 14:30-0500 Body weight 93.9 kg Robert Ball Other [facility] Other 01-05-2023 14:30-0500 Diastolic blood pressure 84 mm[Hg] Robert Ball Other [facility] Other 01-05-2023 14:30-0500 Systolic blood pressure 160 mm[Hg] Robert Ball Other [facility] Other 01-02-2023 14:40-0500 Body height 167.64 cm Sonido Calvert Other [facility] Other 01-02-2023 14:40-0500 Body mass index (BMI) [Ratio] 32.92 kg/m2 Sonido Calvert Other [facility] Other 01-02-2023 14:40-0500 Body weight 92.53 kg Sonido Calvert Other [facility] Other 01-02-2023 14:40-0500 Diastolic blood pressure 84 mm[Hg] Sonido Calvert Other [facility] Other 01-02-2023 14:40-0500 Systolic blood pressure 154 mm[Hg] Sonidoanh Calvert Other [facility] Other 10-03-2022 08:00-0500 Inhaled oxygen flow rate 1 L/min DO Robert Ball Work Phone: [facility] 10-03-2022 07:55-0500 Body temperature 97.7 [degF] DO Robert Ball Work Phone: [facility] 10-03-2022 07:55-0500 Diastolic blood pressure 76 mm[Hg] DO Robert Ball Work Phone: [facility] 10-03-2022 07:55-0500 Heart rate 69 /min DO Robert Ball Work Phone: [facility] 10-03-2022 07:55-0500 Respiratory rate 16 /min DO Robert Ball Work Phone: [facility] 10-03-2022 07:55-0500 SaO2% (BldA) [Mass fraction] 95 % DO Robert Ball Work Phone: [facility] 10-03-2022 07:55-0500 Systolic blood pressure 146 mm[Hg] DO Robert Ball Work Phone: [facility] 10-03-2022 06:00-0500 Body weight 93 kg DO Robert Ball Work Phone: [facility] 10-02-2022 11:56-0500 Body height 170.18 cm DO Robert Ball Work Phone: [facility] 10-02-2022 11:56-0500 Body mass index (BMI) [Ratio] 31.8 kg/m2 DO Robert Ball Work Phone: [facility] 09-26-2022 12:00-0500 Diastolic blood pressure 84 mm[Hg] Robert E Ball Work Phone: [facility] [facility] DO Work Phone: 09-26-2022 12:00-0500 Systolic blood pressure 128 mm[Hg] Robert E Ball Work Phone: [facility] 250 DO Work Phone: 09-26-2022 11:58-0500 Body height 170.18 cm Robert E Ball Work Phone: [facility] [facility] DO Work Phone: 09-26-2022 11:58-0500 Body mass index (BMI) [Ratio] 31.79 kg/m2 Robert E Ball Work Phone: [facility] [facility] DO Work Phone: 09-26-2022 11:58-0500 Body surface area Derived from formula 2.03 m2 Robert E Ball Work Phone: [facility] 250 DO Work Phone: 09-26-2022 11:58-0500 Body weight 92.08 kg Robert E Ball Work Phone: [facility] [facility] DO Work Phone: 09-26-2022 11:58-0500 Diastolic blood pressure 86 mm[Hg] Robert E Ball Work Phone: [facility] 250 DO Work Phone: 09-26-2022 11:58-0500 Heart rate 55 /min Robert E Ball Work Phone: [facility] [facility] DO Work Phone: 09-26-2022 11:58-0500 Systolic blood pressure 132 mm[Hg] Robert E Ball Work Phone: [facility] 250 DO Work Phone: 09-12-2022 14:20-0500 Body height 167.64 cm Sonido Calvert Other [facility] Other 09-12-2022 14:20-0500 Body mass index (BMI) [Ratio] 31.47 kg/m2 Sonido Calvert Other [facility] Other 09-12-2022 14:20-0500 Body weight 88.45 kg Sonido Calvert Other [facility] Other Encounters Encounter Date Encounter Type Care Provider Facility Start: 08-07-2024 End: 08-07-2024 ambulatory Ben Murillo II Facility:[facility] Start: 08-07-2024 End: 08-07-2024 Patient encounter procedure DO Robert Ball Work Phone: [facility] Work Phone: Start: 07-15-2024 End: 07-15-2024 ambulatory DO Robert Ball Work Phone: [facility] Work Phone: Start: 07-15-2024 End: 07-15-2024 Patient encounter procedure DO Robert Ball Work Phone: [facility] Work Phone: Start: 07-13-2024 Patient encounter procedure DO Robert Ball Work Phone: [facility] Start: 07-11-2024 End: 07-11-2024 ambulatory DO Robert Ball Work Phone: [facility] Work Phone: Start: 07-11-2024 End: 07-11-2024 Discharged Recurring DO Robert Ball Work Phone: [facility] [place] Start: 07-09-2024 Non-patient / Non-visit DO William britoin Ball [facility] Work Phone: Start: 06-26-2024 End: 06-26-2024 ambulatory DO Robert Ball Work Phone: [facility] Work Phone: Start: 06-26-2024 End: 06-26-2024 Patient encounter procedure DO Robert Ball [facility] [place] [facility] Work Phone: Start: 06-26-2024 End: 06-26-2024 Patient encounter procedure DO Robert Ball Work Phone: [facility] [place] [facility] Start: 06-26-2024 End: 06-26-2024 ambulatory DO Robert Ball Work Phone: [facility] Work Phone: Start: 06-25-2024 Registered Recurring DO Benjam in Ball Work Phone: [facility] [place] Start: 05-29-2024 End: 05-29-2024 ambulatory DO Robert Ball Work Phone: [facility] Work Phone: Start: 05-29-2024 End: 05-29-2024 Patient encounter procedure DO Robert Ball Work Phone: [facility] Work Phone: Start: 05-13-2024 Non-patient / Non-visit DO William alfie Ball Work Phone: [facility] Work Phone: Start: 05-13-2024 End: 05-13-2024 Admission to same day surgery center DO Robert Ball Work Phone: [facility] [place] Start: 05-13-2024 End: 05-13-2024 ambulatory Ben Murillo II Facility:[facility] Start: 05-09-2024 End: 05-09-2024 ambulatory DO Robert Ball Work Phone: [facility] Work Phone: Start: 05-09-2024 End: 05-09-2024 Patient encounter procedure DO Robert Ball Work Phone: [facility] Work Phone: Start: 05-07-2024 End: 05-07-2024 ambulatory [facility] Start: 05-07-2024 End: 05-07-2024 Encounter for preprocedural cardiovascular examination [facility] Start: 05-07-2024 Registered Recurring DO Benjam in Ball Work Phone: [facility] [place] Start: 05-07-2024 End: 05-07-2024 Patient encounter procedure DO Robert Ball Work Phone: [facility] [place] [facility] Start: 05-07-2024 End: 05-07-2024 ambulatory DO Robert Ball Work Phone: [facility] Work Phone: Start: 05-02-2024 End: 05-02-2024 Patient encounter procedure DO Robert Ball Work Phone: [facility] Work Phone: Start: 05-02-2024 End: 05-02-2024 ambulatory DO Robert Ball Work Phone: [facility] Work Phone: Start: 05-02-2024 Encounter for preprocedural laboratory examination Ben Murillo [facility] Start: 04-16-2024 End: 04-16-2024 ambulatory DO Robert Ball Work Phone: [facility] Work Phone: Start: 04-16-2024 End: 04-16-2024 Patient encounter procedure DO Robert Ball Work Phone: [facility] [place] Work Phone: Start: 04-09-2024 ambulatory ROBERT E BALL [facility] Start: 04-08-2024 End: 04-08-2024 ambulatory DO Robert Ball Work Phone: [facility] Work Phone: Start: 04-08-2024 End: 04-08-2024 Patient encounter procedure DO Robert Ball Work Phone: [facility] Work Phone: Start: 03-27-2024 End: 03-27-2024 Patient encounter procedure DO Robert Ball Work Phone: [facility] [place] Work Phone: Start: 03-27-2024 End: 03-27-2024 ambulatory DO Robert Ball Work Phone: [facility] Work Phone: Start: 03-03-2024 End: 03-03-2024 Patient encounter procedure DO Robert Ball Work Phone: [facility] Work Phone: Start: 02-21-2024 Non-patient / Non-visit DO William Culver Work Phone: [facility] [employer] Work Phone: Start: 12-06-2023 End: 12-06-2023 ambulatory Robert Culver Other [facility] Other Start: 12-06-2023 Telephone encounter Robert Culver [facility] Start: 11-13-2023 End: 11-13-2023 ambulatory Robert Culver Other [facility] Other Start: 11-13-2023 Telephone encounter Robert Culver [facility] Start: 11-08-2023 End: 11-08-2023 ambulatory Robert Culver Other [facility] Other Start: 11-08-2023 Telephone encounter Robert Culver [facility] Start: 10-10-2023 End: 10-10-2023 ambulatory Ben [place] II Other [facility] Other Start: 10-10-2023 Office outpatient vi sit 25 minutes Ben [place] II [facility] Start: 10-08-2023 End: 10-08-2023 ambulatory Robert Culver Other [facility] Other Start: 10-08-2023 Telephone encounter Robert Culver [facility] Start: 10-05-2023 End: 10-05-2023 ambulatory Robert Culver Other [facility] Other Start: 10-05-2023 Telephone encounter Robert Culver [facility] Start: 08-31-2023 End: 08-31-2023 ambulatory Robert Culver Other [facility] Other Start: 08-31-2023 Transitional care jackeline lacey srvc 14 day discharge Robert Culver [facility] Start: 08-27-2023 End: 08-27-2023 ambulatory Robert Culver Other [facility] Other Start: 08-27-2023 Telephone encounter Robert Culver [facility] Start: 08-21-2023 End: 08-21-2023 ambulatory Robert Culver Other [facility] Other Start: 08-21-2023 Office outpatient vi sit 25 minutes Robert Culver [facility] Start: 07-11-2023 End: 07-11-2023 Patient encounter procedure DO Robert Culver Work Phone: [facility] [place] [facility] Start: 07-11-2023 End: 07-11-2023 ambulatory DO Robert Culver Work Phone: [facility] Work Phone: Start: 07-11-2023 Office outpatient ne w 45 minutes Ben Murillo II [facility] [place] Orthopedics Start: 06-22-2023 End: 06-22-2023 ambulatory Robert Culver Other [facility] Other Start: 06-22-2023 Telephone encounter Robert Culver [facility] Start: 06-15-2023 End: 06-15-2023 ambulatory Robert Culver Other [facility] Other Start: 06-15-2023 Patient encounter procedure Robert Culver [facility] Start: 04-03-2023 End: 04-03-2023 ambulatory Robert Culver Other [facility] Other Start: 04-03-2023 Telephone encounter Robert Ivy [facility] Start: 01-17-2023 End: 01-18-[address] ROBERT CULVER Facility: Start: 01-05-2023 End: 01-05-2023 ambulatory Robert Culver Other [facility] Other Start: 01-05-2023 Office outpatient vi sit 25 minutes [facility] Start: 01-02-2023 End: 01-02-2023 ambulatory Sonido Calvert Other [facility] Other Start: 01-02-2023 Postop follow up vis it related to original px Sonido Calvert [facility] Neurosurgery Start: 10-02-2022 End: 10-03-2022 Admission to same day surgery center DO Robert Ball Work Phone: [facility] Start: 10-02-2022 End: 10-03-2022 ambulatory DO Robert Culver Work Phone: [facility] Work Phone: Start: 09-28-2022 End: 09-28-2022 Patient encounter procedure DO Robert Ivy Work Phone: [facility] Start: 09-27-2022 End: 09-28-[address] ROBERT CULVER Facility: Start: 09-26-2022 Office consultation new/estab patient 60 min Robert Anh Ball Work Phone: [facility] 250 DO Work Phone: Start: 09-26-[address] Kiko Jacbos Facility: Start: 09-20-2022 End: 09-20-2022 ambulatory DO Robert Culver Work Phone: [facility] Work Phone: Start: 09-20-2022 End: 09-20-2022 Patient encounter procedure DO Robert Culver Work Phone: [facility] Start: 09-12-2022 End: 09-12-2022 Patient encounter procedure DO Robert Culver Work Phone: [facility] Start: 09-12-2022 End: 09-12-2022 ambulatory DO Robert Culver Work Phone: [facility] Work Phone: Start: 09-12-2022 Office outpatient ne w 60 minutes Sonido Calvert [facility] Neurosurgery Start: 08-23-2022 Chart abstracting Unk (Historical) N eurology Start: 08-11-2022 End: 08-12-[address] ROBERT CULVER Facility:[facility]1 Start: 08-08-2022 End: 08-09-[address] ROBERT CULVER Facility:[facility] Start: 08-03-2022 End: 08-04-[address] RICARDO HERRING Facility:[facility] Start: 07-14-2022 End: 07-15-[address] ROBERT CULVER Facility:[facility]1 Patient encounter status Cheryl Kamara Ivy Work Phone: [facility] 250 DO Work Phone: Procedures Date Procedure Procedure Detail Performing Clinician Start: 08-07-2024 Plain X-ray of right femur DO Robert Ball Work Phone: Start: 08-07-2024 Plain X-ray of right tibia and right fibula DO Robert Ball Work Phone: Start: 08-07-2024 X-ray of right knee, two views DO Robert Ball Work Phone: Start: 06-26-2024 X-ray of right knee DO Robert Ball Work Phone: Start: 05-13-2024 X-ray of right knee DO Robert Ball Work Phone: Start: 05-13-2024 Total replacement of right knee joint DO Robert Ball Work Phone: Start: 05-07-2024 Plain X-ray of left femur DO Robert Ball Work Phone: Start: 05-07-2024 Plain X-ray of left tibia and left fibula DO Robert Ball Work Phone: Start: 05-02-2024 Antibody screen Cheryl Culver Comment on above: Order Comment: Date of Surgery: [id number] Result Comment: PERF ORMED BY: [facility] [address] [place] [address] PATHOLOGIST BATH MIX OPERATOR ISABEL KRUSE M.D. Start: 04-16-2024 X-ray of right knee DO Robert Culver Work Phone: Start: 03-27-2024 Methicillin resistan t Staphylococcus aureus culture DO Robert Culver Work Phone: Start: 07-11-2023 Pelvis X-ray DO Cheryl Culver Work Phone: Start: 07-11-2023 X-ray of both knees DO Robert Culver Work Phone: Start: 10-02-2022 Excision of lumbar intervertebral disc DO Robert Culver Work Phone: Start: 10-02-2022 X-ray of lumbar spin e, single view DO Robert Culver Work Phone: Start: 09-12-2022 X-ray of cervical spine DO Robert Culver Work Phone: Start: 09-12-2022 X-ray of lumbar spin e, six views including bending views DO Robert Culver Work Phone: Start: 07-14-[address] FRANKEL IN [employer] Comment on above: Performed By: #### [facility] #### [facility] [address] [place] [address] Dr. Dileep Figueroa Extraction of wisdom tooth Robert Culver Work Phone: H/O: artificial joint Aftercare following joint replacement DO Robert Culver Work Phone: Operative procedure on knee Robert Culver Work Phone: SARS Antigen (LFIA) DO Aidan min Ivy Work Phone: Tonsillectomy Robert Kamara Bal l Work Phone: NEGATED: Highlighted row has not occurred! Colonoscopy Robert Culver Work Phone: Plan of Treatment Date Care Activity Detail Author Start: 08-07-2024 Plain X-ray of right femur XR femur RT 2V* [facility] Start: 08-07-2024 Plain X-ray of right tibia and right fibula XR tibia fibula RT 2V* [facility] Start: 08-07-2024 X-ray of right knee, two views XR knee RT 2V [facility] Start: 08-07-2024 XR Femur - right 2 Views [facility] Start: 08-07-2024 XR Knee - right 2 Views [facility] Start: 08-07-2024 XR Tibia and Fibula - right 2 Views [facility] Start: 06-26-2024 X-ray of right knee XR knee RT 3V - NOT FOR ER USE [facility] Start: 06-26-2024 XR Knee - right 3 Views [facility] Start: 05-13-2024 Hospital admission [facility] Start: 05-13-2024 [facility] Start: 05-13-2024 [facility] Start: 05-13-2024 Physical therapy procedure [facility] Start: 05-02-2024 [facility] Start: 03-27-2024 MRSA Culture MRSA Culture [facility] Start: 10-03-2022 [facility] Start: 10-02-2022 Physical therapy procedure [facility] Start: 10-02-2022 Referral to occupati onal therapist [facility] Cotinine [Mass/volum e] in Serum or Plasma [facility] Methicillin resistan t Staphylococcus aureus [Presence] in Unspecified specimen by Organism specific culture [facility] Nicotine [Mass/volum e] in Serum or Plasma [facility] Patient Education Know your Meds [facility] Work Phone: Patient referral [facility] Work Phone: [facility] Immunizations Immunization Date Immunization Notes Care Provider Miguel patel 06-22-2022 Prevnar 20 0.5 ML Intramuscular Suspension Prefilled Syringe Robert Culver Work Phone: [facility] 02-10-2022 Comirnaty 30 MCG/0.3 ML Intramuscular Suspension Robert Culver Work Phone: [facility] 02-10-2022 COVID-19 mRNA, Comir vy (Pfizer) DO Robert Culver Work Phone: [facility] 10-18-2021 COVID-19 mRNA, Comir vy (Pfizer) DO Robert Culver Work Phone: [facility] Payers Date Payer Category Payer Self-pay 2022 Unknown [id number] 2022 Medicare MEDICARE MEDICAR E A AND B [id number] 2022-Present [phone] [place] [address] Medicare [id number] 1959 Medicare [id number] 1959 Private Health Insurance CLI [id number] 1959 Self-pay [id number] 1955 Unknown [id number] [id number] .356 1957 Unknown [id number] 2.840.1.706910.3.579.2 .593 1957 Unknown [id number] .840.1.927588.3.579.2 .593 1957 Unknown [id number] .840.1.107916.3.579.2 .593 1957 Unknown [id number] .840.1.660490.3.579.2 .593 1957 Unknown [id number] 2.16840.1.792674.3.579.2 .593 1957 Unknown [id number] 2.16840.1.137921.3.579.2 .1286 1957 Unknown [id number] 2.16840.1.406829.3.579.2 .1244 Unknown [id number] 2.16840.1.744211.19 Unknown Unknown [id number] 2.16.840.1.855527.3.579.2 .593 Unknown [id number] 2.16.840.1.573914.3.579.2 .531 Unknown [id number] 2.16.840.1.433341.3.579.2 .531 Unknown [id number] 2.16.840.1.778751.3.579.2 .531 Unknown [id number] 2.16.840.1.445586.3.579.2 .531 Unknown [id number] 2.16.840.1.954345.3.579.2 .531 Unknown [id number] 2.16.840.1.647770.3.579.2 .531 Unknown [id number] 2.16.840.1.890947.3.579.2 .531 Unknown [id number] 2.16.840.1.755284.3.579.2 .531 Social History Date Type Detail Facility Tobacco smoking status [facility] Tobacco smoking consumption unknown [facility] Start: 1955 Sex Assigned At Not on file [facility] Start: 1955 Sex Assigned At Male [facility] Sex Assigned At Sex Assigned At [facility] Other Start: 09-20-2022 End: 05-13-2024 Tobacco smoking status [facility] Never smoked tobacco (finding) [facility] Caffeine use Caffeine use [facility] 250 DO Work Phone: Comment on above: a thermos daily of c offee; couple beers daily; Medical Equipment Procedure Code Equipment Code Equipment Origin al Text Equipment Identifier Dates Arthroplasty, knee, total, minimally invasive Orthopaedic cement, non-medicated [id number] FDA Start: 05-13-2024 Arthroplasty, knee, total, minimally invasive Tibial insert [id number] FDA Start: 05-13-2024 Arthroplasty, knee, total, minimally invasive Polyethylene patella prosthesis ()[id number] FDA Start: 05-13-2024 Arthroplasty, knee, total, minimally invasive Coated knee femur prosthesis ()[id number] FDA Start: 05-13-2024 Arthroplasty, knee, total, minimally invasive Coated knee tibia prosthesis ()[id number] FDA Start: 05-13-2024 Goals Date Patient Goal Desired Activity /State Functional Status Date Assessment Result Facility 10-03-2022 Functional status Patient at Baseline [facility] Work Phone: Mental Status Date Assessment Result Facility 10-03-2022 Cognitive function Cognitive Sta tus Patient at Baseline [facility] Work Phone: Clinical Notes 08-25-2022 to 12-06-2023 Note Date & Type Note Facility 12-06-2023 Evaluation note Encounter Date Diagnosis Assessment Notes Nov, Type 2 diabetes mellitus with hyperglycemia , without long-term current use of insulin (ICD-10 - E11.65) [facility] Other 01-16-2024 Evaluation note* Encounter Date Diagnosis Assessment Notes Treatment Notes Treatment Clinical Notes Oct, Type 2 diabetes mellitus with hyperglycemia, without long-term current use of insulin (ICD-10 - E11.65) [facility] Other 01-11-2024 Evaluation note* Encounter Date Diagnosis Assessment Notes Treatment Notes Treatment Clinical Notes Oct, Primary hypertension (ICD-10 - I10) Oct, Type 2 diabetes mellitus with hyperglycemia, without long-term current use of insulin (ICD-10 - E11.65) [facility] Other 12-13-2023 Evaluation note* Encounter Date Diagnosis Assessment Notes Treatment Notes Treatment Clinical Notes Sep, Primary osteoarthritis of right knee (ICD-10 - M17.11) Sep, Primary osteoarthritis of left knee (ICD-10 - M17.12) Sep, Other 1. We had a oscar g discussion with the patient today concerning [...] of this from his ER visit. 7. Pgk-xailzsz-jmrkuhswh diabetes-his most recent A1c is 8.0. He [...] or if he should be an inpatient. 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 No obvious focal neurologic deficits. Jul, Concussion [...] Check UA r/o acute prostatitis r/o glucosuria [facility] Other 09-13-2023 Evaluation note* Encounter Date Diagnosis Assessment Notes Treatment Notes Treatment Clinical Notes Jun, Bilateral primary osteoarthritis of knee (ICD-10 - M17.0) Jun, Non-insulin dependent type 2 diabetes mellitus (ICD-10 - E11.9) Jun, Other 1. We had a oscar g discussion with the patient today concerning [...] times a day. 3. NSAIDs: Recommended continued lfmf-rvm-isafztk anti-inflammatories. Also recommended Voltaren gel 4-5 times [...] the preoperative screening labs at that time [facility] Other 08-25-2023 Evaluation note* Encounter Date Diagnosis Assessment Notes Treatment Notes Treatment Clinical Notes May, Elevated cholesterol (ICD-10 - E78.00) May, Type 2 diabetes mellitus with hyperglycemia, without long-term current use of insulin (ICD-10 - E11.65) [facility] Other 08-18-2023 Evaluation note* Encounter Date Diagnosis [...] use (ICD-10 - Z79.899) Check CBC, ALT [facility] Other 08-18-2023 Evaluation note* Encounter Date Diagnosis [...] use (ICD-10 - Z79.899) Check CBC, ALT [facility] Other 06-06-2023 Evaluation note* Encounter Date Diagnosis Assessment Notes Treatment Notes Treatment Clinical Notes Mar, Type 2 diabetes mellitus with hyperglycemia, without long-term current use of insulin (ICD-10 - E11.65) [facility] Other 03-10-2023 Evaluation note* Encounter Date Diagnosis [...] stroke without residual deficits (ICD-10 - Z86.73) [facility] Other 03-07-2023 Evaluation note* Encounter Date Diagnosis [...] see him again on an as-needed basis. [facility] Other 12-06-2022 Progress note Author Sonido Calvert [facility] October 03, 2022 7:52am Note Date/Time October 03, 2022 7 :52am [facility] [address] [place], [place] [id number] Neurosurgery Progress Note Signed Patient: Cale Krause MR#: [id number] : 1955 Acct:[id number] Age/Sex: 67 / M Adm Date: 2 Loc: 4N Room: 9T0663-7 Type: REG SDC Attending Dr: Sonido Calvert [...] <Electronically signed by MD Sonido Calvert> 10/03/22751 [facility] Work Phone: 1(529) 391-710211-15-2022 Evaluation note* Encounter Date Diagnosis Assessment Notes [...] would like to proceed with surgical intervention. [facility] Other 10-28-2022 History of Present illness Narrative* Jose Luis Norman PA-C - 08/25/2022 9:49 AM EDT Pt can be seen first available JU. Mild foraminal stenosis, moderate canal stenosis. Pt has not done PT or tried injection * Kerwin Escamilla - 08/23/2022 9:47 AM EDT Patient name: Cale Krause Are you being referred by a [place] for Spine Health Provider or Pain Management Provider at [facility]? No If answer is YES please schedule [...] facility where the MRI/CT/myelogram was completed: [facility] Address: [address] [place] [address] MRI/CT/myelogram viewable in Epic: No If not, please provide [phone] to fax in imaging reports for review. [...] completed: N/A Additional Comments documented in this encounterDysart ClinicEvaluation noteNo assessment information [facility] Work Phone: evaluation note* Diagnosis Onset Date Resolution Status Lumbar stenosis with neurogenic claudication acute [facility] Work Phone: Evaluation noteNo InformationNort [employer] Other Evaluation note* Diagnosis Onset Date Resolution Status Diabetes mellitus with diabetic polyneuropathy acute Diabetes mellitus with hyperglycemia acute Primary hypertension acute [facility] Work Phone: Evaluation note* Diagnosis Onset Date Resolution Status Primary hypertension acute Cerebral atherosclerosis acu te Elevated cholesterol acute Primary hypertension acute Type 2 diabetes mellitus with hyperglycemia acute Preop exam for internal medicine noneactive [facility] Work Phone: Evaluation note* Diagnosis Onset Date Resolution Status Primary hypertension acute Bilateral primary osteoarthritis of knee acute Cerebral atherosclerosis acu te Elevated cholesterol acute Primary hypertension acute Type 2 diabetes mellitus with hyperglycemia acute Preop exam for internal medicine noneactive Primary osteoarthritis of right knee acute Right knee pain acute [facility] Work Phone: Evaluation note* Diagnosis Onset Date Resolution Status Primary hypertension acute Bilateral primary osteoarthritis of knee acute Cerebral atherosclerosis acu te Elevated cholesterol acute Primary hypertension acute Type 2 diabetes mellitus with hyperglycemia acute Preop exam for internal medicine noneactive Primary osteoarthritis of right knee acute Right knee pain acute Aftercare following joint replacement acute History of total right knee replacement acute Primary osteoarthritis of right knee acute [facility] Work Phone: Evaluation note* Diagnosis Onset Date Resolution Status Bilateral primary osteoarthritis of knee acute Cerebral atherosclerosis acu te Elevated cholesterol acute Primary hypertension acute Type 2 diabetes mellitus with hyperglycemia acute Preop exam for internal medicine noneactive Primary osteoarthritis of right knee acute Right knee pain acute Aftercare following joint replacement acute History of total right knee replacement acute Primary osteoarthritis of right knee acute Aftercare following joint replacement acute [facility] Work Phone: Evaluation note* Diagnosis Onset Date Resolution Status Bilateral primary osteoarthritis of knee acute Cerebral atherosclerosis acu te Elevated cholesterol acute Primary hypertension acute Type 2 diabetes mellitus with hyperglycemia acute Preop exam for internal medicine noneactive Primary osteoarthritis of right knee acute Right knee pain acute Aftercare following joint replacement acute History of total right knee replacement acute Primary osteoarthritis of right knee acute Aftercare following joint replacement acute History of total right knee replacement acute [facility] Work Phone: Evaluation note* Diagnosis Onset Date Resolution Status Primary osteoarthritis of right knee acute Right knee pain acute Aftercare following joint replacement acute History of total right knee replacement acute Primary osteoarthritis of right knee acute Aftercare following joint replacement acute History of total right knee replacement acute [facility] Work Phone: Evaluation note* Diagnosis Onset Date Resolution Status Primary osteoarthritis of right knee acute Right knee pain acute Aftercare following joint replacement acute History of total right knee replacement acute Primary osteoarthritis of right knee acute Aftercare following joint replacement acute History of total right knee replacement acute Cerebral atherosclerosis acu te Elevated cholesterol acute Elevated PSA acute Medicare annual wellness visit, subsequent acute Primary hypertension acute [facility] Work Phone: Evaluation note* Diagnosis Onset Date Resolution Status Aftercare following joint replacement acute History of total right knee replacement acute Primary osteoarthritis of right knee acute Aftercare following joint replacement acute History of total right knee replacement acute Cerebral atherosclerosis acu te Elevated cholesterol acute Elevated PSA acute Medicare annual wellness visit, subsequent acute Primary hypertension acute Screening for colon cancer a cute Aftercare following joint replacement acute History of total right knee replacement acute [facility] Work Phone: History general Narrative - Reported* Type Description Date Medical History Arthritis Medical History diabetes mallitus Medical History hypertension Medical History stroke Surgical History knee surgery Hospitalization History see surgical hx [facility] Other [facility] general Narrative - Reported* Type Description Date Medical History Arthritis Medical History diabetes mellitus Medical History hypertension Medical History stroke Medical History neuropathy Medical History GERD Medical History tinea pedis Medical History tinea cruris Medical History obesity Surgical History knee surgery Surgical History Lumbar decompressive laminectom y 09/2022 Surgical History Tonsillectomy Hospitalization History see surgical hx [facility] Other [facility] general Narrative - Reported* Type Description Date Medical History Arthritis Medical History diabetes mellitus Medical History hypertension Medical History stroke Medical History neuropathy Medical History GERD Medical History tinea pedis Medical History tinea cruris Medical History obesity Surgical History knee surgery Surgical History Lumbar decompressive laminectom y 09/2022 Surgical History Tonsillectomy Hospitalization History see surgical hx Hospitalization History Intracerebral hemorrhage 08/21/23 [facility] Other Hospital Discharge instructions Additional Instructions DISCHARGE [...] appointment to see your physician in two weeks.[facility] Work Phone: Reason for referral (narrative)* Reason *Waiting for appt Referral for evaluation and treatment of degenerative arthritis of his knees Diagnosis 1 Primary osteoarthrit is of knees, bilateral (M17.0) Referral Organization [facility] Ivy arias Referring Provider First Name Robert Referring Provider Last Name Ivy Referring Provider Specialty Internal Me bryan Referred Organization [facility] Referred Provider Ben Murillo II Referred Address [address] [place], [place],[address] Referred Provider Specialty Orthopaedic Surgery Referral Priority [...] Silva 06/26/2023 01:53:54 PM >received today, sent [employer] Other Chief Complaint and Reason for Visit Chief Complaint M48.02;M48;062 Chief Complaint M48.02;M48;062 Stenosis Chief Complaint M48.02;M48;062 Stenosis Stenosis Stenosis Reason for Visit Lumbar stenosis with neurogenic claudication Chief Complaint Knee Pain Z79.899 M17.0 M81.0 Reason for Visit Diabetes mellitus wi th diabetic polyneuropathy Diabetes mellitus with hyperglycemia Primary hypertension Chief Complaint Knee Pain Z79.899 M17.0 M81.0 presurgical clearence, Lt total knee Reason for Visit Primary hypertension Cerebral atherosclerosis Elevated cholesterol Primary hypertension Type 2 diabetes mellitus with hyperglycemia Preop exam for internal medicine Chief Complaint Knee Pain Z79.899 M17.0 M81.0 presurgical clearence, Lt total knee OP SP RT KNEE PAIN M25.561 - Pain in right knee Reason for Visit Primary hypertension Bilateral primary osteoarthritis of knee Cerebral atherosclerosis Elevated cholesterol Primary hypertension Type 2 diabetes mellitus with hyperglycemia Preop exam for internal medicine Primary osteoarthritis of right knee Right knee pain Chief Complaint Knee Pain Z79.899 M17.0 M81.0 presurgical clearence, Lt total knee OP SP RT KNEE PAIN M25.561 - Pain in right knee Right Knee Pain Reason for Visit Primary hypertension Bilateral primary osteoarthritis of knee Cerebral atherosclerosis Elevated cholesterol Primary hypertension Type 2 diabetes mellitus with hyperglycemia Preop exam for internal medicine Primary osteoarthritis of right knee Right knee pain Chief Complaint Knee Pain Z79.899 M17.0 M81.0 presurgical clearence, Lt total knee OP SP RT KNEE PAIN M25.561 - Pain in right knee Right Knee Pain M17.12 - Unilateral primary osteoarthritis, left k Preop R TKA Reason for Visit Primary hypertension Bilateral primary osteoarthritis of knee Cerebral atherosclerosis Elevated cholesterol Primary hypertension Type 2 diabetes mellitus with hyperglycemia Preop exam for internal medicine Primary osteoarthritis of right knee Right knee pain Chief Complaint Knee Pain Z79.899 M17.0 M81.0 presurgical clearence, Lt total knee OP SP RT KNEE PAIN M25.561 - Pain in right knee Right Knee Pain M17.12 - Unilateral primary osteoarthritis, left k Preop R TKA Prolonged Reason for Visit Primary hypertension Bilateral primary osteoarthritis of knee Cerebral atherosclerosis Elevated cholesterol Primary hypertension Type 2 diabetes mellitus with hyperglycemia Preop exam for internal medicine Primary osteoarthritis of right knee Right knee pain Chief Complaint Knee Pain Z79.899 M17.0 M81.0 presurgical clearence, Lt total knee OP SP RT KNEE PAIN M25.561 - Pain in right knee Right Knee Pain M17.12 - Unilateral primary osteoarthritis, left k R TKA Prolonged Right Knee Pain Right Knee Pain [facility] PT 2 WK POST OP LTKA Reason for Visit Primary hypertension Bilateral primary osteoarthritis of knee Cerebral atherosclerosis Elevated cholesterol Primary hypertension Type 2 diabetes mellitus with hyperglycemia Preop exam for internal medicine Primary osteoarthritis of right knee Right knee pain Aftercare following joint replacement History of total right knee replacement Primary osteoarthritis of right knee Chief Complaint presurgical clearenc e, Lt total knee OP SP RT KNEE PAIN M25.561 - Pain in right knee Right Knee Pain M17.12 - Unilateral primary osteoarthritis, left k Prolonged Right Knee Pain Right Knee Pain [facility] PT 2 WK POST OP LTKA R TKA Z47.1 - Aftercare following joint replacement surg 4 WK RECHECK LTKA Reason for Visit Bilateral primary os teoarthritis of knee Cerebral atherosclerosis Elevated cholesterol Primary hypertension Type 2 diabetes mellitus with hyperglycemia Preop exam for internal medicine Primary osteoarthritis of right knee Right knee pain Aftercare following joint replacement History of total right knee replacement Primary osteoarthritis of right knee Aftercare following joint replacement Chief Complaint presurgical clearenc e, Lt total knee OP SP RT KNEE PAIN M25.561 - Pain in right knee Right Knee Pain M17.12 - Unilateral primary osteoarthritis, left k Prolonged Right Knee Pain Right Knee Pain [facility] PT 2 WK POST OP LTKA R TKA Z47.1 - Aftercare following joint replacement surg 4 WK RECHECK LTKA Reason for Visit Bilateral primary os teoarthritis of knee Cerebral atherosclerosis Elevated cholesterol Primary hypertension Type 2 diabetes mellitus with hyperglycemia Preop exam for internal medicine Primary osteoarthritis of right knee Right knee pain Aftercare following joint replacement History of total right knee replacement Primary osteoarthritis of right knee Aftercare following joint replacement History of total right knee replacement Chief Complaint OP SP RT KNEE PAIN M25.561 - Pain in right knee Right Knee Pain M17.12 - Unilateral primary osteoarthritis, left k Prolonged Right Knee Pain Right Knee Pain [facility] PT 2 WK POST OP LTKA Z47.1 - Aftercare following joint replacement surg 4 WK RECHECK LTKA R TKA Reason for Visit Primary osteoarthrit is of right knee Right knee pain Aftercare following joint replacement History of total right knee replacement Primary osteoarthritis of right knee Aftercare following joint replacement History of total right knee replacement Chief Complaint OP SP RT KNEE PAIN M25.561 - Pain in right knee Right Knee Pain M17.12 - Unilateral primary osteoarthritis, left k Prolonged Right Knee Pain Right Knee Pain [facility] PT 2 WK POST OP LTKA Z47.1 - Aftercare following joint replacement surg 4 WK RECHECK LTKA R TKA Wellness Reason for Visit Primary osteoarthrit is of right knee Right knee pain Aftercare following joint replacement History of total right knee replacement Primary osteoarthritis of right knee Aftercare following joint replacement History of total right knee replacement Cerebral atherosclerosis Elevated cholesterol Elevated PSA Medicare annual wellness visit, subsequent Primary hypertension Screening for colon cancer Chief Complaint Prolonged Right Knee Pain Right Knee Pain [facility] PT 2 WK POST OP LTKA Z47.1 - Aftercare following joint replacement surg 4 WK RECHECK LTKA R TKA Wellness 6 WEEKS Z47.1 - Aftercare following joint replacement surg Reason for Visit Aftercare following joint replacement History of total right knee replacement Primary osteoarthritis of right knee Aftercare following joint replacement History of total right knee replacement Cerebral atherosclerosis Elevated cholesterol Elevated PSA Medicare annual wellness visit, subsequent Primary hypertension Screening for colon cancer Aftercare following joint replacement History of total right knee replacement Chief Complaint Right Knee Pain Right Knee Pain [facility] PT 2 WK POST OP LTKA Z47.1 - Aftercare following joint replacement surg 4 WK RECHECK LTKA R TKA Wellness 6 WEEKS Z47.1 Z96.651 Reason for Visit Aftercare following joint replacement History of total right knee replacement Primary osteoarthritis of right knee Aftercare following joint replacement History of total right knee replacement Cerebral atherosclerosis Elevated cholesterol Elevated PSA Medicare annual wellness visit, subsequent Primary hypertension Screening for colon cancer Aftercare following joint replacement History of total right knee replacement Advance Directives Advance Directive Response Recorded Date/ Time Advance Directives No August 2:13pm Advance Directive Response Recorded Date/ Time Advance Directives No August 3:13pm Family History Relationship Condition Age at Onset Recorded Date/T [...] Not Specified Unknown natural son Hypertension Unknown Relationship Condition Age at Onset Recorded Date/T mao father Heart disease Unknown Hypertension Unknown mother Type 2 diabetes mellitus Unknown brother Stenosis of carotid artery Unknown daughter Hypertension Unknown father Unknown mother Unknown son Hypertension Unknown Chief Complaint * L5 [...] this informatio n is protected by the [facility] Confidentiality of Alcohol and Drug Abuse Patient Records regulations: The Federal rules restrict any use of the information to criminally investigate or prosecute any alcohol or drug abuse patient.[facility] Care Teams (unrecognized sec tion and content) Team Status: Active Member Role Status Dates Robert Culver DO Primary Care Provider Active Team Status: Inactive Member Role [...] March 27, 2024 End: March 27, 2024 Team Status: Inactive Member Role Status Dates Robert Culver DO Primary Care Provide r, Attending Provider Active Start: April 08, 2024 End: April 08, 2024 Team Status: Inactive Member Role Status Dates Robert Culver DO Primary Care Provider Active Start: April 16, 2024 End: April 16, 2024 Ben Murillo II, MD Attending Provider Active Start: April 16, 2024 End: April 16, 2024 Team Status: Inactive Member Role Status Dates Robert Culver DO Primary Care Provider Active Start: May 02, 2024 End: May 02, 2024 Ben Murillo II, MD Attending Provider Active Start: May 02, 2024 End: May 02, 2024 Team Status: Inactive Member Role Status Dates Robert Culver DO Primary Care Provider Active Start: May 07, 2024 End: May 07, 2024 Ben Murillo II, MD Attending Provider Active Start: May 07, 2024 End: May 07, 2024 Team Status: Active Member Role Status Dates Robert Culver DO Primary Care Provider Active Start: May 07, 2024 Ben Murillo II, MD Attending Provider Active Start: May 07, 2024 Team Status: Inactive Member Role Status Dates Robert Culver DO Primary Care Provider Active Start: May 09, 2024 End: May 09, 2024 Ben Murillo II, MD Attending Provider Active Start: May 09, 2024 End: May 09, 2024 Team Status: Inactive Member Role Status Dates Robert Culver DO Primary Care Provider Active Start: May 13, 2024 End: May 13, 2024 Ben Murillo II, MD Attending Provider Active Start: May 13, 2024 End: May 13, 2024 Team Status: Active Member Role Status Dates Robert Culevr DO Primary Care Provider Active Start: May 13, 2024 Ben Murillo II, MD Attending Provi marion, Other Provider Active Start: May 13, 2024 Team Status: Inactive Member Role Status Dates Robert Culver DO Primary Care Provider Active Start: May 29, 2024 End: May 29, 2024 RAHUL EscotoC Attending Provider Active Start: May 29, 2024 End: May 29, 2024 Team Status: Active Member Role Status Dates Robert Culver DO Primary Care Provide r, Attending Provider Active Start: February 21, 2024 Report Specialist Relationship Specialty Start Date End Date Robert Culver, DO [address] [place] [id number] PCP - General Internal Medicine 08/23/22 Robert Culver, DO [address] [place] [address] Internal Medicine 08/23/22 Team Status: Inactive Member Role Status Dates Robert Culver DO Primary Care Provider Active Sonido Calvert MD Attending Provider Active Team Status: Inactive Member Role Status Dates Robert Culver DO Primary Care Provider Active Ben Murillo II, MD Attending Provider Active Team Status: Active Member Role Status Dates Robert Culver DO Primary Care Provider Active Start: April 16, 2024 Ben Murillo II, MD Attending Provider Active Start: April 16, 2024 Team Status: Active Member Role Status Dates Robert Culver DO Primary Care Provider Active Start: June 25, 2024 Ben Murillo II, MD Attending Provider Active Start: June 25, 2024 Team Status: Active Member Role Status Dates Robert Culver DO Primary Care Provider Active Start: June 26, 2024 Ben Murillo II, MD Attending Provider Active Start: June 26, 2024 Team Status: Inactive Member Role Status Wu Robert Culver Primary Care Provider Active Start: June 26, 2024 End: June 26, 2024 Ben Murillo II, MD Attending Provider Active Start: June 26, 2024 End: June 26, 2024 Team Status: Active Member Role Status Wu Robert Culver DO Primary Care Provide r, Attending Provider Active Start: July 09, 2024 Team Status: Inactive Member Role Status Wu Culver DO Primary Care Provider Active Start: July 11, 2024 End: July 11, 2024 Bne Murillo II, MD Attending Provider Active Start: July 11, 2024 End: July 11, 2024 Team Status: Inactive Member Role Status Wu Robert Culver DO Primary Care Provide r, Attending Provider Active Start: July 15, 2024 End: July 15, 2024 Team Status: Inactive Member Role Status Wu Robert Culver DO Primary Care Provider Active Start: August 07, 2024 End: August 07, 2024 JOSIE Escoto Attending Provider Active Start: August 07, 2024 End: August 07, 2024 Team Status: Active Member Role Status Wu Culver Primary Care Provider Active Start: August 07, 2024 Ben Murillo II, MD Attending Provider Active Start: August 07, 2024 Team Status: Inactive Member Role Status Wu Robert Culver Primary Care Provider Active Start: August 07, 2024 End: August 07, 2024 Ben Murillo II, MD Attending Provider Active Start: August 07, 2024 End: August 07, 2024 Goals (unrecognized section and content) Goals may be documented in a n alternate sectionNo InformationGoals may be documented in an alternate sectionNo InformationNo InformationNo InformationNo InformationNo InformationNo InformationNo InformationGoals may be documented in an alternate sectionNo InformationNo InformationNo InformationNo InformationNo InformationNo InformationNo InformationNo InformationNo InformationGoals may be documented in an alternate sectionGoals may be documented in an alternate sectionGoals may be documented in an alternate sectionGoals may be documented in an alternate sectionGoals may be documented in an alternate sectionGoals may be documented in an alternate sectionGoals may be documented in an alternate section [...] section and content) DATE CREATED AUTHOR 09/27/2022 [facility] DATE CREATED AUTHOR AUTHOR'S ORGANIZ ATION 09/27/2022 [employer] DATE CREATED AUTHOR AUTHOR'S ORGANIZ ATION 01/17/2023 [facility] DATE CREATED AUTHOR AUTHOR'S ORGANIZ ATION 01/20/2023 [facility] DATE CREATED AUTHOR AUTHOR'S ORGANIZ ATION 04/10/2024 [facility] DATE CREATED AUTHOR AUTHOR'S ORGANIZ ATION 05/14/2024 [facility] DATE CREATED AUTHOR AUTHOR'S ORGANIZ ATION 08/09/2024 [facility] FOR RECORDS PERTAINING TO PATIENTS [...] BE BASED ON THE PRIMARY CLINICAL RECORDS. [facility] [employer] provides no warranty or guarantee of the accuracy or completeness of information in this document.
[2024-08-15 04:08] LABS: PSA, Free 0.49 ng/mL; Prostate Specific Ag 3.9 ng/mL (0.0-4.0)
== END 2024-08-14 09:56 | disposition home or self-care (01) ==
LOC: LAB 09:57
PROVIDERS: PCP Internal Medicine; Visit Provider Internal Medicine
DX: R97.20 Elevated prostate specific antigen [PSA] (principal)
CPT/HCPCS: 36415; 84153; 84154

== ENCOUNTER 2025-04-16 07:17 | Outpatient (OUT) | payer MEDICARE, SELFPAY ==
--- OUTSIDE RECORDS SUMMARY | 2025-04-16 07:21 | XMS_ITS | Encounter Summary ---
Author Organization [facility] Address [address] [place] [address] Phone Care Team Providers Care Deputy Commonwealth'S Attorney Name Role Phone Robert Culver DO Primary Care Provider [phone] Encounter Details Date Type Department Care Team (Late st Contact Info) Description 07/09/2024 Scanned Document [facility] [address] [place] [id number] Scanning, Generic Provider Social History Tobacco Use Types Packs/Day Years Used Date Smoking Tobacco: Never Smokeless Tobacco: Never Alcohol Use Standard Drinks/Week Comments Yes 0 (1 standard drink = 0.6 oz pur e alcohol) occ Sex and Gender Information Value Date Recorded Sex Assigned at Not on file Legal Sex Male 10:47 PM EST Gender Identity Not on file Sexual Orientation Not on file documented as of this encounter Plan of Treatment Upcoming Encounters Date Type Department Care Team (Late st Contact Info) Description 08/21/2025 10:20 AM EDT Office Visit [facility] [address] [facility] [address] [place] [address] Kyler Montoya MD [address] [facility] [address] [place] [address] documented as of this encounter Visit Diagnoses Not on filedocumented in this encounter Additional Health Concerns Assessment Noted Time A fall risk assessment has been complete d for the patient 05/07/2024 2:33 PM EDT documented as of this encounter Care Teams Deputy Commonwealth'S Attorney Relationship Specialty Start Date End Date Robert Culver DO PCP - General 09/26/22 documented as of this encounter
--- OUTSIDE RECORDS SUMMARY | 2025-04-16 07:21 | XMS_ITS | Clinical Summary ---
Author Organization [facility] Address [address] [place] [address] Phone Care Team Providers Care Radio Operator Ground Name Role Phone Robert Culver Primary Care Provider [phone] Allergies Active Allergy Reactions Criticality Noted Date Comments Penicillins Other 05/07/2024 Medications aspirin 81 mg EC tablet Take 1 tablet (81 mg) by mouth once daily. Active glimepiride (Amaryl) 4 mg tablet Take 1 tablet (4 mg) by mouth 2 times a day. Active amLODIPine (Norvasc) 5 mg tablet Take 1 tablet (5 mg) by mouth once daily. Active lisinopriL-hydroc hlorothiazide 20-12.5 mg tablet Take 2 tablets by mouth once daily. Active famotidine (Pepcid) 20 mg tablet Take 1 tablet (20 mg) by mouth twice a day. Active cetirizine (ZyrTEC) 10 mg tablet Take 1 tablet (10 mg) by mouth once daily. Active zinc gluconate 50 mg tablet Take 1 tablet (50 mg) by mouth once daily. Active carvedilol (Coreg) 6.25 mg tabletIndications :Primary hypertension Take 1 tablet (6.25 mg) by mouth 2 times a day. 180 tablet 3 4 05/07/20 25 Active diclofenac (Voltaren) 75 mg EC tablet Take 1 tablet (75 mg) by mouth 2 times a day. Do not crush, chew, or split. Active Active Problems Problem Noted Date Diagnosed Date Never smoked tobacco 11/17/2024 History of stroke 05/07/2024 Primary hypertension 05/07/2024 Preop cardiovascular exam 05/07/2024 Abnormal EKG 05/07/2024 BMI 32.0-32.9,adult 05/07/2024 Sinus bradycardia 05/07/2024 Immunizations Immunization Administration Dates Next Due Pfizer Purple Cap SARS-CoV-2 02/10/2022 Pneumococcal conjugate vaccine, 20-valent (PREVN AR 20) 06/22/2022 Family History Medical History Relation Name Comments Diabetes type I Father Hypertension Father Diabetes type I Mother Relation Name Status Comments Father Mother Social History Tobacco Use Types Packs/Day Years Used Date Smoking Tobacco: Never Smokeless Tobacco: Never Tobacco Cessation:Counseling Given: Yes Alcohol Use Standard Drinks/Week Comments Yes 0 (1 standard drink = 0.6 oz pur e alcohol) occ Sex and Gender Information Value Date Recorded Sex Assigned at Not on file Legal Sex Male 10:47 PM EST Gender Identity Not on file Sexual Orientation Not on file Last Filed Vital Signs Vital Sign Reading Time Taken Comments Blood Pressure 132/88 11/17/2024 10:52 AM EST Pulse 64 11/17/2024 10:27 AM EST Temperature - - Respiratory Rate - - Oxygen Saturation - - Inhaled Oxygen Concentration - - Weight 95.3 kg (210 lb) 11/17/2024 10:27 AM EST Height 170.2 cm (5' 7 ) 11/17/2024 10:27 AM EST Body Mass Index 32.89 11/17/2024 10:27 AM EST Plan of Treatment Upcoming Encounters Date Type Department Care Team ([facility] Contact Info) Description 08/21/2025 10:20 AM EDT Office Visit [facility] [address] [address] Kyler Montoya MD [address] [facility] [address] [place] [address] Health Maintenance Due Date Last Done Comments Bone Density Scan 1957 CT Colonography 1957 Colonoscopy 1957 Colorectal Cancer Screening 1957 FIT-DNA (Cologuard) 1957 FIT 1957 Lipid Panel 1957 Medicare Annual Wellness Vis it (AWV) 1957 Sigmoidoscopy 1957 Diabetes Screening 1975 Hepatitis C Screening 1975 DTaP/Tdap/Td Vaccines (1 - Tdap) 1979 Zoster Vaccines (1 of 2) 2007 COVID-19 Vaccine (2 - 2023-2 5 season) 2024 02/10/2022 Influenza Vaccine (Season Ended) 2025 RSV High Risk: (Elderly (60+ ) or Population) (1 - 1-dose 75+ series) 2032 Pneumococcal Vaccine Completed 06/22/2022 HIB Vaccines Aged Out No longer eligi ble based on patient's age to complete this topic HPV Vaccines Aged Out No longer eligi ble based on patient's age to complete this topic Hepatitis A Vaccines Aged Out No long er eligible based on patient's age to complete this topic Hepatitis B Vaccines Aged Out No long er eligible based on patient's age to complete this topic IPV Vaccines Aged Out No longer eligi ble based on patient's age to complete this topic Meningococcal Vaccine Aged Out No rafa del eligible based on patient's age to complete this topic Rotavirus Vaccines Aged Out No longer eligible based on patient's age to complete this topic Insurance MEDICARE PART A AND B AETNA SENIOR SUPPLEMENT MEDICARE PART A AND B AETNA SENIOR SUPPLEMENT Care Teams Radio Operator Ground Relationship Specialty Start Date End Date Robert Culver DO PCP - General 09/26/22
--- OUTSIDE RECORDS SUMMARY | 2025-04-16 07:21 | XMS_ITS | Encounter Summary ---
[id number] [address] [place] [address] Care Team Providers Care Geology Faculty Member Name Role Phone Robert Culver Primary Care Provider [phone] Encounter Details Date Type Department Care Team (Late st Contact Info) Description 10/17/2023 Orders Only [facility] [address] [place] [address] Charley Montano CMA Hemorrhagic stroke ([facility]) Social History Tobacco Use Types Packs/Day Years Used Date Smoking Tobacco: Never Passive Smoke Exposure: Never Smokeless Tobacco: Never Alcohol Use Standard Drinks/Week Comments Not Currently 0 (1 standard drink = 0.6 oz pur e alcohol) AUDIT-C Answer Date Recorded Q1: How often do you have a drink containing alc ohol? 2-3 times a week 08/22/2023 Q2: How many drinks containi ng alcohol do you have on a typical day when you are drinking? 3 or 4 08/22/2023 Q3: How often do you have si x or more drinks on one occasion? Never 08/22/2023 PHQ-2 Answer Date Recorded Total Score 5 10/01/2023 Childcare Answer Date Recorded Childcare Unknown 04/09/2019 Employment Answer Date Recorded Employment Unknown 04/09/2019 Hunger Screening Answer Date Recorded Within the past 12 months we worried whether our food would run out before we got money to buy more. Never True 10/01/2023 Within the past 12 months th e food we bought just didn't last and we didn't have money to get more. Never True 10/01/2023 Sex and Gender Information Value Date Recorded Sex Assigned at Not on file Legal Sex Male 11:59 AM EDT Gender Identity Not on file Sexual Orientation Not on file documented as of this encounter Plan of Treatment Pending Results Name Type Priority Associated Diagnoses Date /Time Creatinine includes GFR, serum Lab Routine Hemorrhagic stroke ([facility]) 10/05/2023 documented as of this encounter Goals Goal Patient Goal Type Associated Problems Recent Progress Patient-Stated? Author Safe transition to home with spouse and self-care General Yes Ledy Merchant LSW Note: Evaluation of progress towards goal: Safe transition to home with self-care. - TATUM Juarez 08/22/23 11:28 AM documented as of this encounter Visit Diagnoses Diagnosis Hemorrhagic stroke ([facility]) Intracerebral hemorrhage documented in this encounter Additional Health Concerns Assessment Noted Time PHQ-9 Depression Total Score: 5 10/01/20 23 9:26 AM EST documented as of this encounter Care Teams Geology Faculty Member Relationship Specialty Start Date End Date Robert Culver DO [address] [place] [address] PCP - General Internal Medicine 08/21/23 documented as of this encounter
--- OUTSIDE RECORDS SUMMARY | 2025-04-16 07:21 | XMS_ITS | Encounter Summary ---
[id number] [address] 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 Author Safe transition to home with spouse and self-care General Yes Ledy Merchant LSW Note: Evaluation of progress towards goal: Safe transition to home with self-care. 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
--- OUTSIDE RECORDS SUMMARY | 2025-04-16 07:21 | XMS_ITS | Encounter Summary ---
Author Organization [employer] Address [id number] [address] [place] [address] Care Team Providers Care Marketing And Public Relations Manager Name Role Phone Robert Culver Primary Care Provider [phone] Encounter Details Date Type Department Care Team (Late st Contact Info) Description 08/23/2023 Orders Only [facility] External [facility] Storage [facility] [place] [address] Transcribe, Orders Support User Pain (Primary Dx); Central positional vertigo Social History Tobacco Use Types Packs/Day Years [...] 08/22/2023 PHQ-2 Answer Date Recorded Total Score 0 08/22/2023 Childcare Answer Date Recorded Childcare Unknown 04/09/2019 Employment Answer Date Recorded Employment Unknown 04/09/2019 Sex and Gender Information Value Date Recorded [...] 11:28 AM documented as of this encounter Results * CT angiogram carotid (08/21/2023 2:50 PM EDT) us Scanning Provider External IMG CT ORDERABLES Fin al Result * CT angiogram head (08/21/2023 2:45 PM EDT) us Scanning Provider External IMG CT ORDERABLES Fin al Result * CT brain without contrast (08/21/2023 11:40 AM EDT) us Scanning Provider External IMG CT ORDERABLES Fin al Result documented in this encounter Visit Diagnoses Diagnosis Pain- Primary Generalized pain Central positional vertigo documented in this encounter Additional Health Concerns Assessment Noted Time PHQ-9 Depression Total Score: 0 08/22/20 9:37 AM EDT documented as of this encounter Care Teams Marketing And Public Relations Manager Relationship Specialty Start Date End Date Robert Culver DO [address] [place] [address] PCP - General Internal Medicine 08/21/23 documented as of this encounter
--- OUTSIDE RECORDS SUMMARY | 2025-04-16 07:21 | XMS_ITS | Encounter Summary ---
Author Organization [facility] Address [address] [place] [address] Phone Care Team Providers Care Assistant Credit Manager Name Role Phone Robert Culver DO Primary Care Provider [phone] Encounter Details Date Type Department Care Team (Late st Contact Info) Description 07/14/2022 Orders Only [facility] [address] [place] [address] Conversion, Onbase Social History Tobacco Use Types Packs/Day Years Used Date Smoking Tobacco: Never Assessed Sex and Gender Information Value Date Recorded Sex Assigned at Not on file Legal Sex Male 10:47 PM EST Gender Identity Not on file Sexual Orientation Not on file documented as of this encounter Plan of Treatment Upcoming Encounters Date Type Department Care Team (Late st Contact Info) Description 08/21/2025 10:20 AM EDT Office Visit [facility] [address] [address] Kyler Montoya MD 703 [facility] [address] [place] [address] Scheduled Orders Name Type Priority Associated Diagnoses Orde r Schedule OUTSIDE LAB SCAN Lab Ordered: 07/14/2022 documented as of this encounter Visit Diagnoses Not on filedocumented in this encounter Care Teams Assistant Credit Manager Relationship Specialty Start Date End Date Robert Culver DO PCP - General 09/26/22 documented as of this encounter
--- OUTSIDE RECORDS SUMMARY | 2025-04-16 07:21 | XMS_ITS | Encounter Summary ---
Author Organization [facility] Address [address] [place] [address] Phone Care Team Providers Care Night Monitor Name Role Phone Robert Culver DO Primary Care Provider [phone] Encounter Details Date Type Department Care Team (Late st Contact Info) Description 05/02/2024 Scanned Document [facility] [address] [place] [id number] Scanning, Generic Provider Social History Tobacco Use [...] Description 08/21/2025 10:20 AM EDT Office Visit [facility] 703 [facility] [address] [place] [address] Kyler Montoya MD [address] [facility] [address], [address] [place], [place] [id number] documented as of this encounter Visit Diagnoses Not on filedocumented in this encounter Care Teams Night Monitor Relationship Specialty Start Date End Date Robert Culver DO PCP - General 09/26/22 documented as of this encounter
--- OUTSIDE RECORDS SUMMARY | 2025-04-16 07:21 | XMS_ITS | Clinical Summary ---
Author Organization [facility] Address [address] [place] [address] Care Team Providers Care User Experience Designer Name Role Phone Unavailable Primary Care Provider Unavailabl e Social History Tobacco Use Types Packs/Day Years Used Date Smoking Tobacco: Never Assessed Sex and Gender Information Value Date Recorded Sex Assigned at Not on file Legal Sex Male 9:28 PM EDT Gender Identity Not on file Sexual Orientation Not on file Plan of Treatment Not on file
--- OUTSIDE RECORDS SUMMARY | 2025-04-16 07:21 | XMS_ITS | Encounter Summary ---
Author Organization [facility] [employer] Address [id number] [address] [place] [address] Care Team Providers Care Culinary Director Name Role Phone Robert Culver Primary Care Provider [phone] Encounter Details Date Type Department Care Team (Late st Contact Info) Description 03/10/2024 Orders Only [facility] [address] [place] [address] Celi Mckeon CMA Social History Tobacco Use Types Packs/Day Years [...] documented as of this encounter Care Teams Culinary Director Relationship Specialty Start Date End Date Robert Culver DO [address] [place] [address] PCP - General Internal Medicine 08/21/23 documented as of this encounter
--- OUTSIDE RECORDS SUMMARY | 2025-04-16 07:21 | XMS_ITS | Encounter Summary ---
Author Organization [facility] Address [address] [place] [address] Phone Care Team Providers Care Moss Gatherer Name Role Phone Robert Culver DO Primary Care Provider [phone] Encounter Details Date Type Department Care Team (Late st Contact Info) Description 08/03/2022 Orders Only [facility] [address] [place] [address] Conversion, Onbase Social History Tobacco Use Types [...] Description 08/21/2025 10:20 AM EDT Office Visit [facility] [address] [address] Kyler Montoya MD 703 [facility] 2, [address] [place] [address] Scheduled Orders Name Type Priority Associated Diagnoses Orde r Schedule OUTSIDE LAB SCAN Lab Ordered: 08/03/2022 documented as of this encounter Visit Diagnoses Not on filedocumented in this encounter Care Teams Moss Gatherer Relationship Specialty Start Date End Date Robert Culver DO PCP - General 09/26/22 documented as of this encounter
--- OUTSIDE RECORDS SUMMARY | 2025-04-16 07:21 | XMS_ITS | Encounter Summary ---
Author Organization [facility] [employer] Address [id number] [address] [place] [address] Care Team Providers Care Survey Data Technician Name Role Phone Robert Culver Primary Care Provider [phone] Reason for Visit * Reason Onset Date Comments MRI Results 10/08/2023 Encounter Details Date Type Department Care Team ([facility] Contact Info) Description 10/08/2023 Telephone [facility] [address] [place] [address] [address] [place] MRI Results Social History Tobacco Use Types Packs/Day Years [...] on file documented as of this encounter Miscellaneous Notes * Telephone Encounter - Court Talley - 10/08/2023 4:07 PM EST Shell Grader received a call from patient's spouse, Cassandra stating patient had a MRI done 10/05/2023 at [facility]. Patient's spouse is asking for a call back with results. Patient's spouse stated [facility] has faxed over results. Please Advise. Patient's spouse is requesting a call back to discuss results. Patient's spouse phone number is [phone]. Thank you so much * Telephone Encounter - Charley Montano CMA - 10/08/2023 4:07 PM EST Called pt's , Cassandra, to let her know that we have not received any results yet. She states she will call the hospital tomorrow to make sure that the results are forwarded. In the meantime, copy writer reassured that a call will be given after our clinical staff goes over the results. * Telephone Encounter - Charley Montano CMA - 10/08/2023 4:07 PM EST Received MRI brain w wo contrast report and uploaded to media. Please advise. * Telephone Encounter - Lillian Schulte RN - 10/08/2023 4:07 PM EST Charley, can you call [facility] and get imaging pushed to PACS please * Telephone Encounter - Charley Montano CMA - 10/08/2023 4:07 PM EST Called the hospital to push it through PACS. It should be here anytime. * Telephone Encounter - ANNA Degroot - 10/08/2023 4:07 PM EST Imaging reviewed. Resolving hemorrhage without sign of underlying mass * Telephone Encounter - ANNA Degroot - 10/08/2023 4:07 PM EST Called and updated patient with results. No further questions. documented in this encounter Plan of Treatment Not on [...] documented as of this encounter Care Teams Survey Data Technician Relationship Specialty [place] [address] [place] [id number] PCP - General Internal Medicine 08/21/23 documented as of this encounter
--- OUTSIDE RECORDS SUMMARY | 2025-04-16 07:21 | XMS_ITS | Encounter Summary ---
Author Organization [facility] Address [id number] [address] [place] [address] Care Team Providers Care Rolling Up Machine Operator Name Role Phone Robert Culver DO Primary Care Provider Reason for Visit * Reason Onset Date Comments Lab Needed 03/07/2024 Encounter Details Date Type Department Care Team (Late Contact Info) Description 03/07/2024 Telephone [facility] [address] [place] [address] Ella Vazquez, theater manager Needed Social History Tobacco Use Types Packs/Day Years [...] encounter Miscellaneous Notes * Telephone Encounter - Ella Vazquez RN - 03/07/2024 3:16 PM EDT Per March 2024 recall, patient is due for routine MRI brain per [facility]. Please call and remind patient,provide central scheduling number if needed. Will call with results once completed. Confirmed order placed. * Telephone Encounter - Celi Mckeon CMA - 03/07/2024 3:16 PM EDT Called Pt to inform of imaging. Pt and spouse would like the order mailed to them. Chief Service Dispatcher mailed the order to the address on file (confirmed with Pt) * Telephone Encounter - Daphne Myles - 03/07/2024 3:16 PM EDT [facility] Scheduling, stated need a CREATININE lab order sent to them due to patient being schedule for MR BRAIN WWO CONTRAST. Please fax order to: Fax#: [phone] Phone#: [phone] * Telephone Encounter - Ella Vazquez RN - 03/07/2024 3:16 PM EDT Order placed and faxed to [facility] per fax number below. * Telephone Encounter - Ella Vazquez RN - 03/07/2024 3:16 PM EDT Received confirmation of successful fax at 1213 on 03/26/24. * Telephone Encounter - Ella Vazquez RN - 03/07/2024 3:16 PM EDT Called [facility] scheduling and spoke to Letty. Inquired if they had received the Creatinine lab order we had faxed over on 03/26/24. She voiced that they did receive it and it was in the patients chart. She also stated the patient is scheduled for his MRI on 04/04/24. Chief Service Dispatcher voiced understanding and thanks. Will follow up after scan is scheduled to be completed and request imaging for clinical staffto review. * Telephone Encounter - Celi Mckeon CMA - 03/07/2024 3:16 PM EDT Called [facility] Scheduling to see if Pt completed imaging. Images are being pushed over. * Telephone Encounter - Celi Mckeon CMA - 03/07/2024 3:16 PM EDT Received in [facility]. Please advise. * Telephone Encounter - Kate Chou PA-C - 03/07/2024 3:16 PM EDT MRI brain looks stable. Would recommend continued risk factor control, especially control of HTN * Telephone Encounter - Ella Vazquez RN - 03/07/2024 3:16 PM EDT Called and spoke to patient and informed of below information. He stated that his blood pressure has been good. No questions or concerns from him. Chief Service Dispatcher stated if anything came up he could always call the clinic and talk to someone. He voiced understanding. 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 Author Safe transition to home with spouse and self-care General Yes Ledy Merchant LSW Note: Evaluation of progress towards goal: Safe transition to home with self-care. 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
--- OUTSIDE RECORDS SUMMARY | 2025-04-16 07:21 | XMS_ITS | Encounter Summary ---
Author Organization [facility] Address [id number] [address] [place] [address] Care Team Providers Care Spiral Runner Name Role Phone Robert Culver DO Primary Care Provider [phone] Encounter Details Date Type Department Care Team (Late st Contact Info) Description 04/09/2024 Orders Only [facility] [address] [place] [address] Celi Mckeon CMA Nontraumatic subcortical hemorrhage of right cerebral [...] documented as of this encounter Care Teams Spiral Runner Relationship Specialty Start Date End Date Robert Culver DO [address] [place] [address] PCP - General Internal Medicine 08/21/23 documented as of this encounter
--- OUTSIDE RECORDS SUMMARY | 2025-04-16 07:21 | XMS_ITS | Encounter Summary ---
Author Organization [facility] Address [address] [place] [address] Phone Care Team Providers Care Checker Name Role Phone Robert Culver DO Primary Care Provider [phone] Encounter Details Date Type Department Care Team (Late st Contact Info) Description 09/20/2022 Orders Only [facility] [address] [place] [address] Conversion, Onbase Social History Tobacco Use Types [...] Description 08/21/2025 10:20 AM EDT Office Visit [facility] [address] [address] Kyler Montoya MD 703 [facility] 2, [address] [place], [place] [address] Scheduled Orders Name Type Priority Associated Diagnoses Orde r Schedule OUTSIDE LAB SCAN Lab Ordered: 09/20/2022 documented as of this encounter Visit Diagnoses Not on filedocumented in this encounter Care Teams Checker Relationship Specialty Start Date End Date Robert Culver DO PCP - General 09/26/22 documented as of this encounter
--- OUTSIDE RECORDS SUMMARY | 2025-04-16 07:21 | XMS_ITS | Clinical Summary ---
Author Organization [employer] Address [id number] [address] [place] [address] Care Team Providers Care Telephone Answerer Name Role Phone Robert Culver DO Primary Care Provider Allergies Active Allergy Reactions Criticality Noted Date Comments Penicillins 08/21/2023 Medications amLODIPine (NORVASC) 5 mg tablet Take 1 tablet (5 mg total) by mouth in the morning. Active aspirin 81 mg Take 1 tablet (81 mg total) by mouth in the morning. Active cetirizine (ZyrTEC) 10 mg tablet Take 1 tablet (10 mg total) by mouth in the morning. Active famotidine (PEPCID) 20 mg tablet Take 1 tablet (20 mg total) by mouth in the morning and 1 tablet (20 mg total) before bedtime. Active glimepiride (AMARYL) 4 mg tablet Take 1 tablet (4 mg total) by mouth every morning before breakfast. Active lisinopril-hydro CHLOROthiazide (PRINZIDE,ZESTOR ETIC) 20-12.5 mg per tablet Take 2 tablets by mouth in the morning. Active glucos sul 2KCl/msm/chond/C /Mn (GLUCOSAMINE CHONDROITIN ORAL) Take by mouth. Osteo-bi flex 25 mg/ 200mg tablet. Take 1 tablet PO QD Active carvediloL (COREG) 25 mg tablet Take 1 tablet (25 mg total) by mouth in the morning and 1 tablet (25 mg total) in the evening. Take with meals. 30 tablet 3 08/23/2023 Active Active Problems Problem Noted Date Diagnosed Date Intracerebral hemorrhage 08/21/2023 Immunizations No known immunizations Social History Tobacco Use Types Packs/Day Years Used Date Smoking Tobacco: Never Passive Smoke Exposure: Never Smokeless Tobacco: Never Tobacco Cessation:Counseling Given: Not Answered Alcohol Use Standard Drinks/Week Comments Not Currently [...] Sign Reading Time Taken Comments Blood Pressure 153/72 10/01/2023 9:31 AM EST Pulse 60 08/23/2023 12:09 PM EDT Temperature 36.7 C (98 F) 08/23/2023 12:09 PM EDT Respiratory Rate 18 08/23/2023 12:09 PM EDT Oxygen Saturation 96% 08/23/2023 8:14 AM EDT Inhaled Oxygen Concentration - - Weight 91.3 kg (201 lb 3.2 oz) 10/01/2023 9:31 A M EST Height 172.7 cm (5' 8 ) 10/01/2023 9:31 AM EST Body Mass Index 30.59 10/01/2023 9:31 AM EST Plan of Treatment Health Maintenance Due Date Last Done Comments DTaP,Tdap and Td Vaccines (1 - Tdap) 1976 Zoster (Shingles) Vaccine (1 of 2) 2007 Fall Risk Screening 2022 COVID-19 Vaccine ( season) 2024, 10/18/2021 Adult BMI Screening 10/01/2024 10/01/2023 Depression Screening 10/01/2024 10/01/2023 Tobacco Screening 10/01/2024 10/01/2023 Influenza Vaccine 06/29/2025 Goals Goal Patient Goal Type Associated Problems Recent Progress Patient-Stated? Author Safe transition to home with spouse and self-care General Yes Ledy Merchant LSW Note: Evaluation of progress towards goal: Safe transition to home with self-care. - TATUM Juarez 08/22/23 11:28 AM Medical Devices Not on file Insurance [address] [place] [address] MEDICARE [facility] Advance Directives * Full Code (Latest Code Status on File) Date Activated Date Inactivated Comments 08/22/2023 10:09 AM 08/23/2023 6:44 PM Care Teams Telephone Answerer Relationship Specialty Start Date End Date Robert Culver DO [address] [place] [address] PCP - General Internal Medicine 08/21/23
[2025-04-16 08:44] LABS: Estimated Average Glucose 146 mg/dL; Glycohemoglobin A1C 6.7 % (4.5-6.2)
[2025-04-17 04:07] LABS: PSA, Free 0.58 ng/mL; Prostate Specific Ag 3.1 ng/mL (0.0-4.0)
== END 2025-04-16 07:18 | disposition home or self-care (01) ==
LOC: LAB 07:19
PROVIDERS: PCP Internal Medicine; Visit Provider Internal Medicine
DX: E11.65 Type 2 diabetes mellitus with hyperglycemia (principal); R97.20 Elevated prostate specific antigen [PSA]
CPT/HCPCS: 36415; 83036; 84153; 84154